=== PATIENT | female | born 1950 | race Two or more races ===

== ENCOUNTER 2020-10-13 21:29 | Emergency (ER) | payer BC, SELFPAY ==
--- NOTE | ~2020-10-13 | CT_ITS ---
EXAMINATION: CT HEAD WITHOUT CONTRAST CLINICAL INFORMATION: Dizziness COMPARISON: 12/09/2018 TECHNIQUE: Contiguous axial imaging was performed from the skull base to vertex without intravenous administration of contrast. This CT examination was performed using dose optimization techniques as appropriate, variously including the following: *Automated exposure control *Adjustment of mA and/or kV according to patient size (this includes techniques or standardized protocols for targeted exams where dose is matched to indication/reason for exam; i.e. extremities or head) *Use of iterative reconstruction technique DLP: 580 mGy-cm FINDINGS: There is no evidence of acute intracranial hemorrhage or territorial infarction. No abnormal mass effect or midline shift is seen. Diana to white matter differentiation is well preserved. No extra-axial fluid collections are identified. The ventricles are normal in size. There is no abnormal attenuation within the brain parenchyma. The osseous structures and soft tissues are normal. The mastoid air cells and visualized portions of the paranasal sinuses are well aerated. CT/CT head/brain wo con IMPRESSION: No acute intracranial pathology.
[2020-10-13 21:34] VITALS: BP 114/67; PULSE 89; RESP 16; TEMP 37.1; O2SAT 98; BMI 19.8
--- NOTE | 2020-10-13 21:54 | ECG_ITS ---
Test Reason : DIZZINESS Blood Pressure : / mmHG Vent. Rate : 088 BPM Atrial Rate : 088 BPM P-R Int : 142 ms QRS Dur : 070 ms QT Int : 380 ms P-R-T Axes : 077 059 066 degrees QTc Int : 459 ms Sinus rhythm with occasional Premature ventricular complexes Otherwise normal ECG When compared with ECG of 09-DEC-2018 18:41, Premature ventricular complexes are now Present Referred By: Angelina Aranda Electronically Signed By:GAURAV VELASCO MD
--- NOTE | 2020-10-13 21:56 | ED_ITS ---
HPI - Dizziness General Chief Complaint: Dizziness Stated Complaint: vertigo nausea Time Seen by Provider: 10/13/20 21:44 Source: patient Mode of arrival: EMS Limitations: no limitations History of Present Illness HPI Narrative: Patient comes emergency room complaining of vertigo. Patient has been previously diagnosed with vertigo. Approximately 3 hours ago, patient was reading, patient decided to lay down to rest, when she laid down she immediately started having severe dizziness, described as the room spinning around. Since then, the patient has had constant room spinning sensation. Patient took 1 tablet of meclizine prior to arrival but did not help. Patient vomited once, patient still feels nauseous. Patient denies chest pain or shortness of breath, no headache. Patient states that as long as she holds her head very still, she is only nauseous but no room spinning. However, if she moves her head slightly, she has severe vertigo Related Data Previous Rx's Medication Instructions Recorded levofloxacin 500 mg tablet 500 mg PO DAILY 7 Days #7 tab 02/19/20 meclizine 25 mg tablet 25 mg PO DAILY PRN #30 tab 03/08/20 cholecalciferol (vitamin D3) 50 50 mcg PO DAILY #90 cap 04/17/20 mcg (2,000 unit) capsule ropinirole 0.5 mg tablet 0.5 mg PO BEDTIME #90 tab 05/07/20 tiotropium bromide 18 mcg capsule 1 cap INHALATION DAILY 90 Days #90 08/19/20 with inhalation device inh simvastatin 10 mg tablet 10 mg PO DAILY #90 tab 10/06/20 citalopram 10 mg tablet 10 mg PO DAILY #90 tab 10/12/20 diazepam [Valium] 2 mg PO BID PRN #6 tab 10/14/20 meclizine 25 mg PO TID PRN #20 tab 10/14/20 Allergies Allergy/AdvReac Type Severity Reaction Status Date / Time aspirin [Aspirin] Allergy Unknown RASH Verified 03/04/20 09:25 diphenhydramine Allergy Unknown Unknown Verified 03/04/20 09:25 [From Benadryl] iron [Iron] Allergy Unknown VAGINAL Verified 03/04/20 09:25 INFECTION menthol [From Antihistamine] Allergy Unknown DIFF Unverified 12/10/19 15:47 BREATHING penicillin V Allergy Unknown hives Verified 03/04/20 09:25 Penicillins Allergy Unknown Hives Verified 03/04/20 09:25 Sulfa (Sulfonamide Allergy Unknown RASH Verified 03/04/20 09:25 Antibiotics) Review of Systems Review of Systems: Constitutional : No Weight loss, No Fever, No Chills, No Night Sweats, No Fatigue, No Malaise ENT/Mouth : No Hearing loss, No Ear Pain, No Nasal Congestion, No Sinus Pain, No Hoarseness, No sore throat, No Rhinorrhea, No Swallowing Difficulty Eyes: No Eye Pain, No Swelling, No Redness, No Foreign Body, No Discharge, No Vision Changes Cardiovascular : No Chest Pain, No SOB, No Dyspnea on Exertion, No Orthopnea, No Edema, No Palpitations Respiratory : No Cough, No Sputum, No Wheezing, No Smoke Exposure, No Dyspnea Gastrointestinal : Complaining of constant nausea, 1 episode of vomiting, No Diarrhea, No Constipation, No abdominal Pain, No Hematochezia, No Melena Genitourinary : no irregular bleeding, No Dysuria, No Urinary Frequency, No Hematuria, No Urinary Incontinence, No Urgency, No Flank Pain, No Urinary Flow Changes, No Hesitancy Musculoskeletal : No joint pain, No Myalgias, No Joint Swelling Skin : No Skin Lesions, No rash Neuro : No Weakness, No Numbness, No Paresthesias, No Loss of Consciousness, no headache, complaining of dizziness/room spinning sensation constantly Psych : No Anxiety/Panic, No Depression, No SI/HI/AH/VH, No Social Issues, Heme/Lymph: No Bruising, No Bleeding,No Lymphadenopathy Endocrine : No Polyuria, No Polydipsia, No Temperature Intolerance [facility] Past Medical History Medical History (Updated 10/14/20 @ 00:44 by Angelina Aranda MD) Vertigo Surgical History History of breast surgery Family History Family History (Updated 03/04/20 @ 09:26 by Mile Tay Clarke) Father Orebg-Xuojt-Nibhq syndrome Mother Hypertension Paternal Aunt Mvwfj-Byunr-Yfgvs syndrome Social History Social History Advance Directives: No Advance Directives Information Provided: Yes Physical Exam Vital Signs: Vital Signs: Last Vital Signs Temp 98.7 F 10/13/20 21:34 Pulse 86 10/13/20 22:28 Resp 16 10/13/20 22:28 BP 115/69 10/13/20 22:28 Pulse Ox 98 10/13/20 22:28 Body Mass Index 19.8 Appearance: Alert. Oriented X3. Looks uncomfortable Eyes: Pupils equal, round and reactive to light. No nystagmus ENT: Pharynx normal. Neck: Normal inspection. Neck supple. No lymph nodes noted. No crepitus CVS: Normal heart rate and rhythm. Pulses normal. Normal S1 and S2 Respiratory: No respiratory distress. Breath sounds normal. No Wheezing. No rales Abdomen: Soft and nontender. No rigidity. No distention. good BS x4 Skin: Skin warm and dry. Normal skin color. Normal skin turgor. Extremities: No lower extremity edema. No lower extremity edema. No Lacerations. No Rash Neuro: Oriented X 3. No motor deficit. No sensory deficit. Moving all extermities. No slurred speech. Cranial nerves 2-12 grossly intact. Vertigo worsen with head movement side to side MDM - Dizziness MDM Narrative Medical decision making narrative: I discussed labs and head CT with the patient, patient's white blood cell count is slightly elevated, no signs of infection. Patient was given 1 dose of meclizine and Valium, after the medication, patient is now asymptomatic, can move her head within normal limits, has been walking around the emergency room on going up to the bathroom by herself with no symptoms. Lab Data Result diagrams: 10/13/20 22:17 10/13/20 22:17 Labs: Lab Results 10/13/20 10/13/20 10/13/20 Range/Units 22:17 22:17 22:17 WBC 11.2 H (4.8-10.8) X10*3/uL RBC 4.27 (4.20-5.50) X10*6/uL Hgb 14.0 (12.0-16.0) g/dl Hct 42.5 (37-47) % MCV 99.5 H (80-98) fL MCH 32.8 (27.0-33.0) pg MCHC 32.9 (31.0-35.0) g/dl RDW 12.2 (11.0-16.0) % Plt Count 231 (160-400) X10*3/uL MPV 9.4 (9.4-12.3) fL Immature Gran % (Auto) 0.4 (0.0-0.4) % Neut % (Auto) 73.7 H (45-73) % Lymph % (Auto) 20.1 (20-40) % [place] % (Auto) 5.1 (2-11) % Eos % (Auto) 0.5 (0-4) % Baso % (Auto) 0.2 (0-2) % Lymph # (Auto) 2.2 (1.2-4.9) X10*3/uL [place] # (Auto) 0.6 (0.1-1.2) X10*3/uL Eos # (Auto) 0.1 (0.0-0.4) X10*3/uL Baso # (Auto) 0.0 (0.0-0.2) X10*3/uL Abs Immat Gran (auto) 0.04 H (0.00-0.03) X10*3/uL Absolute Neuts (auto) 8.2 (2.0-8.3) X10*3/uL Absolute Nucleated RBC 0.000 (0.0-0.012) X10*3/uL Nucleated RBC % (auto) 0.0 (0.0-0.2) /100WBC PT 11.2 (9.9-13.0) SEC INR 1.0 (0.9-1.1) Sodium 140 (135-145) mmol/L Potassium 4.2 (3.3-5.1) mmol/L Chloride 105 (96-108) mmol/L Carbon Dioxide 28 (22-29) mmol/L Anion Gap 11 L (12-20) BUN 14 (9-16) mg/dL Creatinine 0.72 (0.5-1.4) mg/dL Estim Creat Clear Calc 50.2 Estimated GFR > 60 Random Glucose 127 H (60-115) mg/dL Calcium 8.9 (8.4-10.2) mg/dL Total Bilirubin 0.2 (0.0-1.0) mg/dL Direct Bilirubin < 0.2 (0.0-0.5) mg/dL AST 31 (5-31) U/L ALT 18 (0-31) U/L Alkaline Phosphatase 100 (39-117) U/L Total Protein 6.5 (6.5-8.0) g/dL Albumin 4.2 (3.5-5.0) g/dL Urine Color Urine Appearance Urine pH (5.0-8.0) Ur Specific [place] (1.005-1.025) Urine Protein (NEG-TRACE) MG/DL Urine Glucose (UA) (NEG) MG/DL Urine Ketones (NEG) MG/DL Urine Blood (NEG) Urine Nitrite (NEG) Ur Leukocyte Esterase (NEG) Urine RBC (0) /HPF Urine WBC (0-4) /HPF Ur Squamous Epith Cells /LPF Urine Bacteria /LPF Urine Mucus /LPF 10/13/20 Range/Units 22:59 WBC (4.8-10.8) X10*3/uL RBC (4.20-5.50) X10*6/uL Hgb (12.0-16.0) g/dl Hct (37-47) % MCV (80-98) fL MCH (27.0-33.0) pg MCHC (31.0-35.0) g/dl RDW (11.0-16.0) % Plt Count (160-400) X10*3/uL MPV (9.4-12.3) fL Immature Gran % (Auto) (0.0-0.4) % Neut % (Auto) (45-73) % Lymph % (Auto) (20-40) % [place] % (Auto) (2-11) % Eos % (Auto) (0-4) % Baso % (Auto) (0-2) % Lymph # (Auto) (1.2-4.9) X10*3/uL [place] # (Auto) (0.1-1.2) X10*3/uL Eos # (Auto) (0.0-0.4) X10*3/uL Baso # (Auto) (0.0-0.2) X10*3/uL Abs Immat Gran (auto) (0.00-0.03) X10*3/uL Absolute Neuts (auto) (2.0-8.3) X10*3/uL Absolute Nucleated RBC (0.0-0.012) X10*3/uL Nucleated RBC % (auto) (0.0-0.2) /100WBC PT (9.9-13.0) SEC INR (0.9-1.1) Sodium (135-145) mmol/L Potassium (3.3-5.1) mmol/L Chloride (96-108) mmol/L Carbon Dioxide (22-29) mmol/L Anion Gap (12-20) BUN (9-16) mg/dL Creatinine (0.5-1.4) mg/dL Estim Creat Clear Calc Estimated GFR Random Glucose (60-115) mg/dL Calcium (8.4-10.2) mg/dL Total Bilirubin (0.0-1.0) mg/dL Direct Bilirubin (0.0-0.5) mg/dL AST (5-31) U/L ALT (0-31) U/L Alkaline Phosphatase (39-117) U/L Total Protein (6.5-8.0) g/dL Albumin (3.5-5.0) g/dL Urine Color YELLOW Urine Appearance CLEAR Urine pH 6.0 (5.0-8.0) Ur Specific [place] 1.025 (1.005-1.025) Urine Protein NEG (NEG-TRACE) MG/DL Urine Glucose (UA) NEG (NEG) MG/DL Urine Ketones NEG (NEG) MG/DL Urine Blood TRACE (NEG) Urine Nitrite NEG (NEG) Ur Leukocyte Esterase NEG (NEG) Urine RBC 5-9 H (0) /HPF Urine WBC 1-4 (0-4) /HPF Ur Squamous Epith Cells 1+ /LPF Urine Bacteria 1+ /LPF Urine Mucus 1+ /LPF Imaging Data CT scan - head: Radiologist's impression: There is no evidence of acute intracranial hemorrhage or territorial infarction. No abnormal mass effect or midline shift is seen. Diana to white matter differentiation is well preserved. No extra-axial fluid collections are identified. The ventricles are normal in size. There is no abnormal attenuation within the brain parenchyma. The osseous structures and soft tissues are normal. The mastoid air cells and visualized portions of the paranasal sinuses are well aerated. CT/CT head/brain wo con IMPRESSION: No acute intracranial pathology. ECG Data Attestation: I personally reviewed and interpreted this ECG as follows: (Center rhythm, heart rate 88, nonspecific ST changes, occasional PVCs, QTC 459) Discharge Plan Discharge Clinical Impression: Vertigo Patient Disposition: Home, Self-Care Instructions: Vertigo (ED) Additional Instructions: Please follow-up with your primary care physician tomorrow. If you have any worsening or new symptoms, please return to the emergency room or call 911 Prescriptions: New meclizine 25 mg tablet,chewable 25 mg PO TID PRN (Reason: dizziness) Qty: 20 RF: 0 diazepam [Valium] 2 mg tablet 2 mg PO BID PRN (Reason: vertigo) Qty: 6 RF: 0 No Action levofloxacin 500 mg tablet 500 mg PO DAILY 7 Days Qty: 7 RF: 0 meclizine 25 mg tablet 25 mg PO DAILY PRN (Reason: for dizziness) Qty: 30 RF: 1 cholecalciferol (vitamin D3) 50 mcg (2,000 unit) capsule 50 mcg PO DAILY Qty: 90 RF: 3 ropinirole 0.5 mg tablet 0.5 mg PO BEDTIME Qty: 90 RF: 1 tiotropium bromide [Spiriva with HandiHaler] 18 mcg capsule, w/inhalation device 1 cap inhalation DAILY 90 Days Qty: 90 RF: 3 simvastatin 10 mg tablet 10 mg PO DAILY Qty: 90 RF: 2 citalopram 10 mg tablet 10 mg PO DAILY Qty: 90 RF: 1
[2020-10-13 22:02] VITALS: BP 128/67; PULSE 92
[2020-10-13 22:03] VITALS: BP 118/64; PULSE 96
[2020-10-13 22:04] VITALS: BP 119/68; PULSE 98
[2020-10-13 22:24] LABS: MANUAL DIFF FLAG NO
[2020-10-13 22:25] LABS: Basophils Percent Auto 0.2 % (0-2); Eosinophils Absolute Auto 0.1 X10*3/uL (0.0-0.4); Eosinophils Percent Auto 0.5 % (0-4); Hematocrit 42.5 % (37-47); Imm Gran Abs Auto 0.04 X10*3/uL (0.00-0.03); Imm Gran Pct Auto 0.4 % (0.0-0.4); Lymphocytes Absolute Auto 2.2 X10*3/uL (1.2-4.9); Lymphocytes Percent Auto 20.1 % (20-40); Mean Corpuscular HGB Conc 32.9 g/dl (31.0-35.0); Mean Corpuscular Hemoglobin 32.8 pg (27.0-33.0); Mean Corpuscular Volume 99.5 fL (80-98); Mean Platelet Volume 9.4 fL (9.4-12.3); Monocytes Absolute Auto 0.6 X10*3/uL (0.1-1.2); Monocytes Percent Auto 5.1 % (2-11); Neutrophils Absolute Auto 8.2 X10*3/uL (2.0-8.3); Neutrophils Percent Auto 73.7 % (45-73); Platelet Count 231 X10*3/uL (160-400); Red Blood Count 4.27 X10*6/uL (4.20-5.50); Red Cell Distribution Width 12.2 % (11.0-16.0); White Blood Count 11.2 X10*3/uL (4.8-10.8)
[2020-10-13 22:28] VITALS: BP 115/69; PULSE 86; RESP 16; O2SAT 98
[2020-10-13 22:34] LABS: Prothrombin Time 11.2 SEC (9.9-13.0)
[2020-10-13 22:47] LABS: Alanine Aminotransferase 18 U/L (0-31); Albumin Level 4.2 g/dL (3.5-5.0); Alkaline Phosphatase 100 U/L (39-117); Anion Gap 11 (12-20); Aspartate Amino Transferase 31 U/L (5-31); Bilirubin Direct < 0.2 mg/dL (0.0-0.5); Bilirubin Total 0.2 mg/dL (0.0-1.0); Blood Urea Nitrogen 14 mg/dL (9-16); Calcium 8.9 mg/dL (8.4-10.2); Carbon Dioxide 28 mmol/L (22-29); Chloride 105 mmol/L (96-108); Creatinine Clr Calc Pharmacy 50.2; Estimated Glomerular Filt Rate > 60; Glucose Random 127 mg/dL (60-115); Potassium 4.2 mmol/L (3.3-5.1); Sodium 140 mmol/L (135-145); Total Protein 6.5 g/dL (6.5-8.0)
[2020-10-13] MEDS: Meclizine HCl 25 MG TABLET 50 MG PO (22:58)
[2020-10-13] MEDS: diazePAM 2 MG TABLET PO (23:10)
[2020-10-13 23:11] LABS: Glucose Urine UA NEG (NEG); Leukocyte Esterase Urine NEG (NEG); Nitrite Urine NEG (NEG); Specific Gravity - Urine 1.025 (1.005-1.025); Urine Blood TRACE (NEG); Urine Ketones NEG (NEG); Urine Protein NEG (NEG-TRACE)
[2020-10-13 23:13] LABS: Appearance Urine CLEAR; Color Urine YELLOW
[2020-10-13 23:17] LABS: Bacteria Urine 1+ /LPF; Mucus Urine 1+ /LPF; Squamous Epithelial Cell Urine 1+ /LPF
== END 2020-10-14 01:00 | disposition home or self-care (01) ==
PROVIDERS: Emergency Provider Emergency Medicine; PCP Internal Medicine
DX: R42 Dizziness and giddiness (principal)
CPT/HCPCS: 36415; 70450; 80048; 80076; 81001; 85025; 85610; 93005; 99284; 99285

== ENCOUNTER 2020-11-07 07:36 | Outpatient (REF) | payer BC, SELFPAY ==
[2020-11-07 09:03] LABS: MANUAL DIFF FLAG NO
[2020-11-07 09:11] LABS: Basophils Percent Auto 0.3 % (0-2); Eosinophils Absolute Auto 0.1 X10*3/uL (0.0-0.4); Eosinophils Percent Auto 1.9 % (0-4); Hematocrit 44.8 % (37-47); Hemoglobin 14.5 g/dl (12.0-16.0); Imm Gran Abs Auto 0.02 X10*3/uL (0.00-0.03); Imm Gran Pct Auto 0.3 % (0.0-0.4); Lymphocytes Absolute Auto 2.9 X10*3/uL (1.2-4.9); Lymphocytes Percent Auto 49.7 % (20-40); Mean Corpuscular HGB Conc 32.4 g/dl (31.0-35.0); Mean Corpuscular Hemoglobin 32.4 pg (27.0-33.0); Mean Platelet Volume 10.1 fL (9.4-12.3); Monocytes Absolute Auto 0.4 X10*3/uL (0.1-1.2); Monocytes Percent Auto 6.2 % (2-11); Neutrophils Absolute Auto 2.4 X10*3/uL (2.0-8.3); Neutrophils Percent Auto 41.6 % (45-73); Platelet Count 254 X10*3/uL (160-400); Red Blood Count 4.48 X10*6/uL (4.20-5.50); Red Cell Distribution Width 12.2 % (11.0-16.0); White Blood Count 5.8 X10*3/uL (4.8-10.8)
[2020-11-07 09:31] LABS: Alanine Aminotransferase 19 U/L (0-31); Albumin Level 4.3 g/dL (3.5-5.0); Alkaline Phosphatase 96 U/L (39-117); Anion Gap 13 (12-20); Aspartate Amino Transferase 31 U/L (5-31); Bilirubin Total 0.3 mg/dL (0.0-1.0); Blood Urea Nitrogen 11 mg/dL (9-16); Calcium 9.7 mg/dL (8.4-10.2); Carbon Dioxide 30 mmol/L (22-29); Chloride 107 mmol/L (96-108); Cholesterol 165 mg/dL; Estimated Glomerular Filt Rate > 60; Glucose Fasting 99 mg/dL (60-99); HDL Cholesterol 46 mg/dL; LDL Cholesterol Calculated 97 mg/dl; Sodium 145 mmol/L (135-145); Total Protein 6.8 g/dL (6.5-8.0); Triglycerides 112 mg/dL
[2020-11-07 09:52] LABS: Vitamin D 25-OH Total 85.6 ng/mL (>30)
== END 2020-11-07 07:37 | disposition home or self-care (01) ==
LOC: HO.LAB 07:36
PROVIDERS: PCP Internal Medicine; Visit Provider Internal Medicine
DX: E78.2 Mixed hyperlipidemia (principal); G25.81 Restless legs syndrome; F17.200 Nicotine dependence, unspecified, uncomplicated; E55.9 Vitamin D deficiency, unspecified
CPT/HCPCS: 36415; 80053; 80061; 82306; 82550; 85025

== ENCOUNTER 2021-03-09 07:33 | Outpatient (REF) | payer BC, SELFPAY ==
[2021-03-09 07:44] LABS: MANUAL DIFF FLAG NO
[2021-03-09 07:57] LABS: Basophils Percent Auto 0.4 % (0-2); Eosinophils Absolute Auto 0.1 X10*3/uL (0.0-0.4); Eosinophils Percent Auto 1.5 % (0-4); Hematocrit 43.7 % (37.0-47.0); Imm Gran Abs Auto 0.02 X10*3/uL (0.00-0.03); Imm Gran Pct Auto 0.3 % (0.0-0.4); Lymphocytes Absolute Auto 3.5 X10*3/uL (1.2-4.9); Lymphocytes Percent Auto 51.5 % (20-40); Mean Corpuscular Hemoglobin 32.6 pg (27.0-33.0); Mean Corpuscular Volume 101.9 fL (80.0-98.0); Mean Platelet Volume 9.4 fL (9.4-12.3); Monocytes Absolute Auto 0.5 X10*3/uL (0.1-1.2); Monocytes Percent Auto 6.6 % (2-11); Neutrophils Absolute Auto 2.7 x10*3/uL (2.0-8.3); Neutrophils Percent Auto 39.7 % (45-73); Platelet Count 270 X10*3/uL (160-400); Red Blood Count 4.29 X10*6/uL (4.20-5.50); Red Cell Distribution Width 12.6 % (11.0-16.0); White Blood Count 6.8 X10*3/uL (4.8-10.8)
[2021-03-09 08:16] LABS: Alanine Aminotransferase 19 U/L (0-31); Albumin Level 4.2 g/dL (3.5-5.0); Alkaline Phosphatase 91 U/L (39-117); Anion Gap 10 (12-20); Aspartate Amino Transferase 28 U/L (5-31); Bilirubin Total 0.4 mg/dL (0.0-1.0); Blood Urea Nitrogen 14 mg/dL (9-16); Calcium 9.4 mg/dL (8.4-10.2); Carbon Dioxide 31 mmol/L (22-29); Chloride 106 mmol/L (96-108); Cholesterol 177 mg/dL; Estimated Glomerular Filt Rate > 60; Glucose Fasting 105 mg/dL (60-99); HDL Cholesterol 44 mg/dL; LDL Cholesterol Calculated 108 mg/dl; Potassium 4.1 mmol/L (3.3-5.1); Sodium 143 mmol/L (135-145); Total Protein 6.5 g/dL (6.5-8.0); Triglycerides 127 mg/dL
[2021-03-09 08:39] LABS: Vitamin D 25-OH Total 77.9 ng/mL (>30)
== END 2021-03-09 07:34 | disposition home or self-care (01) ==
LOC: HO.LAB 07:33
PROVIDERS: PCP Internal Medicine; Visit Provider Internal Medicine
DX: I10 Essential (primary) hypertension (principal); E55.9 Vitamin D deficiency, unspecified; E78.00 Pure hypercholesterolemia, unspecified
CPT/HCPCS: 36415; 80053; 80061; 82306; 84443; 85025

== ENCOUNTER 2021-04-28 14:30 | Outpatient (REF) | payer BC, SELFPAY ==
[2021-04-28 15:15] LABS: Appearance Urine CLEAR; Color Urine YELLOW; Glucose Urine UA NEG (NEG); Leukocyte Esterase Urine NEG (NEG); Nitrite Urine NEG (NEG); Urine Blood NEG (NEG); Urine Ketones NEG (NEG); Urine Protein NEG (NEG-TRACE)
== END 2021-04-28 14:31 | disposition home or self-care (01) ==
LOC: HO.LAB 14:30
PROVIDERS: PCP Internal Medicine; Visit Provider Internal Medicine
DX: I10 Essential (primary) hypertension (principal)
CPT/HCPCS: 81003

== ENCOUNTER 2021-06-05 08:29 | Outpatient (REF) | payer BC, SELFPAY ==
--- NOTE | ~2021-06-05 | XR_ITS ---
EXAMINATION: XR SHOULDER, RIGHT CLINICAL INFORMATION: Pain COMPARISON: Right humerus x-ray March 2014 TECHNIQUE: AP external rotation, Grashey, scapular Y, and axillary views of the right shoulder. FINDINGS: Bone alignment is normal. No acute fracture or dislocation is seen. There is an old right ninth rib fracture. The bones appear osteopenic. The glenohumeral joint is normal. There is arthritis at the acromioclavicular joint. Soft tissues are unremarkable. XR/XR shoulder RT min 2V IMPRESSION: Osteopenia and arthritis at the acromioclavicular joint.
== END 2021-06-05 08:30 | disposition home or self-care (01) ==
LOC: HO.XRAY 08:29
PROVIDERS: PCP Internal Medicine; Visit Provider Internal Medicine
DX: M25.511 Pain in right shoulder (principal)
CPT/HCPCS: 73030

== ENCOUNTER 2021-06-08 14:13 | Outpatient (REF) | payer BC, SELFPAY ==
--- NOTE | ~2021-06-08 | MM_ITS ---
EXAMINATION: MM DIAGNOSTIC DIGITAL BREAST TOMOSYNTHESIS, BILATERAL US DIAGNOSTIC ULTRASOUND BREAST, BILATERAL CLINICAL INFORMATION: 70-year-old with on and off pain approximately 1 week bilateral axilla, right 3:00 through 9:00, left 8:00 through 10:00. Clinical exam notes palpable area right 2:00 4 cm from nipple and left 10:00 4 cm from nipple. Due for yearly. Prior mammography 2009 purged. The lifetime risk of breast cancer based on the Tyrer-Cuzick Model is 3%. COMPARISON: None (current study represents new baseline exam). TECHNIQUE: Digital breast tomosynthesis is performed in both the craniocaudal and mediolateral oblique views along with computer-aided detection (CAD). Synthesized 2D images are generated from the tomosynthesis. Ultrasound bilateral breasts is performed using grayscale imaging and color Doppler without and with harmonics. Left breast is imaged 8:00 through 10:00 and axilla. Right breast is imaged 2:00 through 9:00 and axilla. FINDINGS: The breasts are heterogeneously dense, which may obscure small masses (ACR BI-RADS breast composition Category c). There is no mass or architectural abnormality. No abnormal calcifications. The axilla and skin contours are unremarkable. No lymphadenopathy, skin thickening, or coarsening of the Benton's ligaments. Bilateral ultrasound demonstrates no axillary adenopathy. There is no cystic or solid mass or architectural abnormality or focal duct ectasia. No skin thickening or edema tracking in the soft tissue planes. Results are discussed with the patient at time of visit. MM/MM tomosynthesis diagnostic BI IMPRESSION: No mammographic evidence of malignancy or inflammatory changes. Bilateral ultrasound normal. ASSESSMENT: BI-RADS 1: Negative RECOMMENDATION: 1. Patient's pain should be managed based on the clinical impression. If there is still clinically palpable concern, further evaluation may be considered with surgical consult. Decision to proceed with biopsy should be based on clinical grounds and degree of clinical concern. 2. Otherwise, routine annual screening mammography. This patient's information was entered into a reminder system with a target due date for their next mammogram.
== END 2021-06-08 14:14 | disposition home or self-care (01) ==
LOC: HO.MAMMO 14:13
PROVIDERS: PCP Internal Medicine; Visit Provider Nurse Practitioner Family
DX: M79.622 Pain in left upper arm (principal); M79.621 Pain in right upper arm
CPT/HCPCS: 76642; 77062; 77066

== ENCOUNTER 2021-07-04 08:04 | Outpatient (REF) | payer BC, SELFPAY ==
[2021-07-04 08:24] LABS: MANUAL DIFF FLAG NO
[2021-07-04 08:30] LABS: Basophils Percent Auto 0.3 % (0-2); Eosinophils Absolute Auto 0.1 X10*3/uL (0.0-0.4); Eosinophils Percent Auto 0.8 % (0-4); Hematocrit 43.3 % (37.0-47.0); Hemoglobin 14.1 g/dl (12.0-16.0); Imm Gran Abs Auto 0.02 X10*3/uL (0.00-0.03); Imm Gran Pct Auto 0.3 % (0.0-0.4); Lymphocytes Absolute Auto 2.4 X10*3/uL (1.2-4.9); Lymphocytes Percent Auto 39.3 % (20-40); Mean Corpuscular HGB Conc 32.6 g/dl (31.0-35.0); Mean Corpuscular Hemoglobin 32.9 pg (27.0-33.0); Mean Corpuscular Volume 100.9 fL (80.0-98.0); Mean Platelet Volume 9.3 fL (9.4-12.3); Monocytes Absolute Auto 0.3 X10*3/uL (0.1-1.2); Monocytes Percent Auto 5.5 % (2-11); Neutrophils Absolute Auto 3.2 x10*3/uL (2.0-8.3); Neutrophils Percent Auto 53.8 % (45-73); Platelet Count 260 X10*3/uL (160-400); Red Blood Count 4.29 X10*6/uL (4.20-5.50); Red Cell Distribution Width 12.6 % (11.0-16.0)
[2021-07-04 08:56] LABS: Alanine Aminotransferase 25 U/L (0-31); Albumin Level 4.3 g/dL (3.5-5.0); Alkaline Phosphatase 94 U/L (39-117); Anion Gap 12 (12-20); Aspartate Amino Transferase 34 U/L (5-31); Bilirubin Total 0.4 mg/dL (0.0-1.0); Blood Urea Nitrogen 10 mg/dL (9-16); Calcium 9.5 mg/dL (8.4-10.2); Carbon Dioxide 29 mmol/L (22-29); Chloride 105 mmol/L (96-108); Cholesterol 168 mg/dL; Estimated Glomerular Filt Rate > 60; Glucose Fasting 110 mg/dL (60-99); HDL Cholesterol 46 mg/dL; LDL Cholesterol Calculated 105 mg/dl; Potassium 4.4 mmol/L (3.3-5.1); Sodium 142 mmol/L (135-145); Total Protein 6.6 g/dL (6.5-8.0); Triglycerides 88 mg/dL
[2021-07-04 09:18] LABS: TSH reflex Free T4 2.05 uIU/mL (0.32-4.0); Vitamin D 25-OH Total 78.2 ng/mL (>30)
[2021-07-04 09:41] LABS: Appearance Urine CLEAR; Color Urine YELLOW; Glucose Urine UA NEG (NEG); Leukocyte Esterase Urine NEG (NEG); Nitrite Urine NEG (NEG); UACC Culture Trigger NO; Urine Blood 1+ (NEG); Urine Ketones NEG (NEG); Urine Protein NEG (NEG-TRACE)
[2021-07-04 09:53] LABS: RBC Urine 0-2 /HPF (0); Squamous Epithelial Cell Urine TRACE /LPF; WBC Urine 0-2 /HPF (0-4)
[2021-07-04 09:54] LABS: Calcium Oxalate Crystals Urine TRACE /LPF
== END 2021-07-04 08:05 | disposition home or self-care (01) ==
LOC: HO.LAB 08:04
PROVIDERS: PCP Internal Medicine; Visit Provider Internal Medicine
DX: E78.00 Pure hypercholesterolemia, unspecified (principal); E55.9 Vitamin D deficiency, unspecified; J44.9 Chronic obstructive pulmonary disease, unspecified; F17.200 Nicotine dependence, unspecified, uncomplicated
CPT/HCPCS: 36415; 80053; 80061; 81001; 82306; 84443; 85025

== ENCOUNTER 2021-08-11 14:06 | Outpatient (REF) | payer BC, SELFPAY ==
--- NOTE | ~2021-08-11 | MM_ITS ---
EXAMINATION: BONE DENSITOMETRY CLINICAL INDICATION: Menopause. COMPARISON: Previous BD dated 06/27/2017 and baseline BD dated 03/30/2009. TECHNIQUE: Using a [employer] DXA System (software version: 13.1) manufactured by [employer], dual-energy x-ray absorptiometry was performed of the lumbar spine and left hip. The images are of good technical quality. Summary results are attached. FINDINGS: AP SPINE L1-L4: Current: BMD 0.650 g/cm2, Z-score -2.1, T-score -4.4, osteoporosis, 11.1% decrease from previous, 10.7% decrease from baseline (<5% change is not significant). Prior: BMD 0.731 g/cm2. Baseline: BMD 0.728 g/cm2. LEFT FEMUR, NECK: Current: BMD 0.639 g/cm2, Z-score -0.8, T-score -2.9, osteoporosis. Prior: BMD 0.613 g/cm2. Baseline: BMD 0.703 g/cm2. LEFT FEMUR, TOTAL: Current: BMD 0.661 g/cm2, Z-score -0.8, T-score -2.8, osteoporosis, 0.9% decrease from previous, 17.1% decrease from baseline (<5% change is not significant). Prior: BMD 0.667 g/cm2. Baseline: BMD 0.797 g/cm2. IDENTIFIED RISK FACTORS: Menopause, osteoporosis, low calcium intake, tobacco use (current smoker). HISTORY OF FRACTURE: None listed. MEDICATIONS: Vitamin D. MM/XR DEXA axial skeleton IMPRESSION: 1. DIAGNOSIS: Osteoporosis based on the lowest T-score value of -4.4 in the lumbar spine applying World Health Organization criteria. 2. 10-YEAR FRACTURE RISK PREDICTION, FRAX: According to the guidelines, FRAX calculation should only be performed on patients in the osteopenia bone density category. Therefore, FRAX was not performed on this patient. 3. Treatment Recommendations: NOF guidelines recommend consideration for treatment in postmenopausal women and men age 50 and older presenting with the following: -A hip or vertebral (clinical or morphometric) fracture. -T-score less than or equal to -2.5 at the femoral neck or spine after appropriate evaluation to exclude secondary causes. -Low bone mass at the hip or spine and a 10-year fracture probability by FRAX of greater than or equal to 3% for hip fracture or greater than or equal to 20% for major osteoporotic fracture based on the [place] adapted WHO algorithm. 4. Other Recommendations: All treatment decisions require clinical judgment and consideration of individual patient factors, including patient preferences, comorbidities, previous drug use, risk factors not captured in the FRAX model (e.g. frailty, falls, vitamin D deficiency, increased bone turnover, interval significant decline in bone density) and possible under or overestimation of fracture risk by FRAX. Additional medical evaluation for secondary cause of low bone mineral density may be appropriate. FUTURE SCAN RECOMMENDATION: People with diagnosed cases of osteoporosis or at high risk for fracture should have regular bone mineral density tests. For patients eligible for Medicare, routine testing is allowed once every 2 years. The testing frequency can be increased to one year for patients who have rapidly progressing disease, those who are receiving or discontinuing medical therapy to restore bone mass, or have additional risk factors.
== END 2021-08-11 14:07 | disposition home or self-care (01) ==
LOC: HO.MAMMO 14:06
PROVIDERS: PCP Internal Medicine; Visit Provider Internal Medicine
DX: Z13.820 Encounter for screening for osteoporosis (principal); Z78.0 Asymptomatic menopausal state; M81.0 Age-related osteoporosis without current pathological fracture
CPT/HCPCS: 77080

== ENCOUNTER 2021-11-20 07:37 | Outpatient (REF) | payer BC, SELFPAY ==
[2021-11-20 07:49] LABS: MANUAL DIFF FLAG NO
[2021-11-20 08:10] LABS: Basophils Percent Auto 0.4 % (0-2); Eosinophils Absolute Auto 0.1 X10*3/uL (0.0-0.4); Eosinophils Percent Auto 1.8 % (0-4); Hematocrit 44.8 % (37.0-47.0); Hemoglobin 14.7 g/dl (12.0-16.0); Imm Gran Abs Auto 0.01 X10*3/uL (0.00-0.03); Imm Gran Pct Auto 0.1 % (0.0-0.4); Lymphocytes Percent Auto 43.8 % (20-40); Mean Corpuscular HGB Conc 32.8 g/dl (31.0-35.0); Mean Corpuscular Hemoglobin 32.3 pg (27.0-33.0); Mean Corpuscular Volume 98.5 fL (80.0-98.0); Mean Platelet Volume 9.7 fL (9.4-12.3); Monocytes Absolute Auto 0.4 X10*3/uL (0.1-1.2); Monocytes Percent Auto 6.2 % (2-11); Neutrophils Absolute Auto 3.2 x10*3/uL (2.0-8.3); Neutrophils Percent Auto 47.7 % (45-73); Platelet Count 233 X10*3/uL (160-400); Red Blood Count 4.55 X10*6/uL (4.20-5.50); Red Cell Distribution Width 12.6 % (11.0-16.0); White Blood Count 6.8 X10*3/uL (4.8-10.8)
[2021-11-20 08:48] LABS: Appearance Urine Clear; Color Urine Yellow; Glucose Urine UA Negative (Negative); Leukocyte Esterase Urine Trace (Negative); Nitrite Urine Negative (Negative); PH 5.5 (5.0-8.0); Specific Gravity - Urine 1.025 (1.005-1.025); Urine Blood Trace (Negative); Urine Ketones Negative (Negative); Urine Protein Negative (Neg-Trace)
[2021-11-20 08:51] LABS: Bacteria Urine None Seen (None Seen); Hyaline Casts Urine 0-2 /LPF (0-2); Squamous Epithelial Cell Urine 0-2 /HPF (0-2); WBC Urine 0-5 /HPF (0-5)
[2021-11-20 08:52] LABS: Alanine Aminotransferase 20 U/L (0-31); Albumin Level 4.2 g/dL (3.5-5.0); Alkaline Phosphatase 90 U/L (39-117); Anion Gap 13 (12-20); Aspartate Amino Transferase 30 U/L (5-31); Bilirubin Total 0.5 mg/dL (0.0-1.0); Blood Urea Nitrogen 13 mg/dL (9-16); Calcium 9.6 mg/dL (8.4-10.2); Carbon Dioxide 29 mmol/L (22-29); Chloride 106 mmol/L (96-108); Cholesterol 157 mg/dL; Estimated Glomerular Filt Rate > 60; Glucose Fasting 97 mg/dL (60-99); HDL Cholesterol 44 mg/dL; LDL Cholesterol Calculated 93 mg/dl; Potassium 4.3 mmol/L (3.3-5.1); Sodium 144 mmol/L (135-145); Total Protein 6.7 g/dL (6.5-8.0); Triglycerides 101 mg/dL
[2021-11-20 09:01] LABS: TSH reflex Free T4 1.52 uIU/mL (0.32-4.0); Vitamin D 25-OH Total 73.9 ng/mL (>30)
== END 2021-11-20 07:38 | disposition home or self-care (01) ==
LOC: HO.LAB 07:37
PROVIDERS: PCP Internal Medicine; Visit Provider Internal Medicine
DX: I10 Essential (primary) hypertension (principal); E55.9 Vitamin D deficiency, unspecified; E78.00 Pure hypercholesterolemia, unspecified
CPT/HCPCS: 36415; 80053; 80061; 81001; 82306; 84443; 85025

== ENCOUNTER 2021-12-01 08:15 | Outpatient (REF) | payer BC, SELFPAY ==
--- NOTE | ~2021-12-01 | XR_ITS ---
EXAMINATION: XR CHEST 2 VIEWS CLINICAL INFORMATION: COPD. COMPARISON: Chest radiograph dated 12/09/2018; CT chest dated 07/31/2017. TECHNIQUE: Frontal and lateral views of the chest were obtained. FINDINGS: The heart, great vessels, pulmonary vasculature and mediastinum are normal. The lungs show no focal infiltrate, effusion or pneumothorax. Small benign, calcified left upper and lower lobe granulomas are redemonstrated. There is no acute osseous abnormality. XR/XR chest 2V IMPRESSION: No active cardiopulmonary disease.
== END 2021-12-01 08:16 | disposition home or self-care (01) ==
LOC: HO.XRAY 08:15
PROVIDERS: PCP Internal Medicine; Visit Provider Internal Medicine
DX: J44.1 Chronic obstructive pulmonary disease with (acute) exacerbation (principal)
CPT/HCPCS: 71046

== ENCOUNTER 2021-12-28 08:38 | Outpatient (REF) | payer BC, SELFPAY ==
--- NOTE | ~2021-12-28 | CT_ITS ---
EXAMINATION: CT CHEST WITHOUT CONTRAST CLINICAL INFORMATION: Nonspecific abnormal finding. COMPARISON: None TECHNIQUE: Multidetector volumetric CT imaging of the chest was done. Axial MIP volume rendering provided. Sagittal and coronal reformatted images were obtained. This CT examination was performed using dose optimization techniques as appropriate, variously including the following: *Automated exposure control *Adjustment of mA and/or kV according to patient size (this includes techniques or standardized protocols for targeted exams where dose is matched to indication/reason for exam; i.e. extremities or head) *Use of iterative reconstruction technique DLP: 76 mGy-cm FINDINGS: ARMAMENT MECHANIC: Lungs are well-expanded and clear. LUNGS: There is centrilobular emphysematous lungs. No acute pneumonic consolidation seen. There is mild bronchial wall thickening involving both lower lobes. There is mild interstitial thickening involving both lower lobes, right lower lobe. There are calcified granulomas, right upper lobe, left upper and left lower lobes. There are noncalcified peripheral-based small nodules measuring less than 3 mm, stable. No new nodules are seen. MEDIASTINUM: The thyroid lobes are symmetric and normal. The central trachea and bronchi are widely patent. Heart size is normal. There is atherosclerotic calcification of thoracic arch. No abnormal size mediastinal or hilar lymph nodes seen. No pericardial effusion seen. CORONARY ARTERY CALCIFICATION: Moderate coronary artery calcifications are noted. PLEURA: There is no pleural effusion. No pleural mass or thickening. AXILLA: There are small shotty lymph nodes seen in bilateral axilla. The chest wall is unremarkable. UPPER ABDOMEN: Visualized liver, spleen, pancreas and bilateral adrenal glands are unremarkable. OSSEOUS STRUCTURES: No lytic or sclerotic process seen. There is superior endplate deformity T12 vertebra. CT/CT chest wo IV con IMPRESSION: 1. Diffuse centrilobular emphysema. Small calcified granulomas and noncalcified nodules, less than 3 mm, stable. 2. Mild interstitial thickening in both lower lobes with bronchial wall thickening but no bronchiectasis. No debris seen within the bronchi at this time. Minimal atelectatic changes. Fleischner guidelines were followed.
== END 2021-12-28 08:39 | disposition home or self-care (01) ==
LOC: HO.CT 08:38
PROVIDERS: Visit Provider Internal Medicine Pulmonary Disease
DX: R91.8 Other nonspecific abnormal finding of lung field (principal)
CPT/HCPCS: 71250

== ENCOUNTER 2022-01-05 08:19 | Outpatient (REF) | payer BC, SELFPAY | END 2022-01-05 08:20 | disposition home or self-care (01) | LOC: HO.RESP 08:19 | PROVIDERS: PCP Internal Medicine; Visit Provider Internal Medicine Pulmonary Disease | DX: Z13.89 Encounter for screening for other disorder (principal) ==

== ENCOUNTER 2022-01-10 13:29 | Outpatient (REF) | payer BC, SELFPAY ==
--- NOTE | 2022-01-10 09:58 | PFT_ITS ---
FLOWS: FEV1 52% of predicted at 0.93 L. FVC 82% of predicted at 1.95 L. FEV1 to FVC ratio of 0.48. No bronchodilator response. LUNG VOLUMES: Total lung capacity 108% of predicted at 4.67 L. Residual volume 131% of predicted at 2.57 L. Slow vital capacity 89% of predicted at 2.10 L. Expiratory reserve volume 110% of predicted at 0.53 L. Diffusion capacity is moderately decreased. IMPRESSION: Moderate obstructive ventilatory defect with no bronchodilator response. Increased residual volume suggests air trapping. Decreased diffusion capacity suggests emphysema. Ike Thomas MD AP/MODL / [id number]
== END 2022-01-10 13:30 | disposition home or self-care (01) ==
LOC: HO.RESP 13:29
PROVIDERS: PCP Internal Medicine; Visit Provider Internal Medicine Pulmonary Disease
DX: R06.00 Dyspnea, unspecified (principal); J44.1 Chronic obstructive pulmonary disease with (acute) exacerbation
CPT/HCPCS: 94060; 94727; 94729

== ENCOUNTER 2022-01-17 15:44 | Emergency (ER) | payer BC, SELFPAY | END 2022-01-17 18:39 | disposition left against medical advice (07) | PROVIDERS: Emergency Provider Emergency Medicine; PCP Internal Medicine | DX: R04.2 Hemoptysis (principal) ==

== ENCOUNTER 2022-02-05 08:07 | Outpatient (REF) | payer BC, SELFPAY ==
[2022-02-05 09:17] LABS: Blood Urea Nitrogen 11 mg/dL (9-16); Estimated Glomerular Filt Rate > 60
== END 2022-02-05 08:08 | disposition home or self-care (01) ==
LOC: HO.LAB 08:07
PROVIDERS: PCP Internal Medicine; Visit Provider Internal Medicine Pulmonary Disease
DX: R04.2 Hemoptysis (principal)
CPT/HCPCS: 36415; 82565; 84520

== ENCOUNTER 2022-02-09 08:32 | Outpatient (REF) | payer BC, SELFPAY ==
--- NOTE | ~2022-02-09 | CT_ITS ---
EXAMINATION: CT CHEST WITH CONTRAST CLINICAL INFORMATION: Hemoptysis COMPARISON: Chest x-ray 12/01/[address] chest 12/28/2021 TECHNIQUE: Multidetector volumetric CT imaging of the chest was obtained after the administration of 65 mL of Omnipaque 350 intravenous contrast without immediate adverse reactions. Axial MIP volume rendering provided. Sagittal and coronal reformatted images were obtained. This CT examination was performed using dose optimization techniques as appropriate, variously including the following: *Automated exposure control *Adjustment of mA and/or kV according to patient size (this includes techniques or standardized protocols for targeted exams where dose is matched to indication/reason for exam; i.e. extremities or head) *Use of iterative reconstruction technique DLP: 60 mGy-cm FINDINGS: BRICKLAYER APPRENTICE: Unremarkable. LUNGS: There is centrilobular emphysema with 5-6 mm calcified nodules in both upper lobes and left lower lobe. There are noncalcified micronodules. They are stable. There is mild bronchial wall thickening in both lower lobes with minimal bronchiectasis. No debris visualized. There is no consolidation. MEDIASTINUM: Central trachea is slightly dilated. However, the trachea and the bronchi are clear. Thyroid lobes are symmetric and normal. Heart size and the great vessels are normal caliber. There is moderate coronary artery calcifications present. No pericardial effusion seen. No abnormal size mediastinal or hilar lymph nodes seen. PLEURA: There is no pleural effusion. No pleural mass or thickening. AXILLA: No lymphadenopathy. UPPER ABDOMEN: Visualized liver, spleen, pancreas and bilateral adrenal glands unremarkable. OSSEOUS STRUCTURES: No aggressive lytic or sclerotic process seen. There is a superior endplate deformity T12 vertebra. CT/CT chest w IV con IMPRESSION: 1. Diffuse emphysema with calcified granulomas are stable. Noncalcified small nodules are stable. 2. There is minimal interstitial thickening and bilateral lower lobe mild bronchiectasis with bronchial wall thickening but no debris. No consolidation seen. 3. Overall the findings are stable to previous exam on 12/28/2021. Fleischner guidelines were followed.
[2022-02-09] MEDS: iohexoL 350 MG/ML 100 ML INFUS..BTL 65 ML IV (09:07)
== END 2022-02-09 08:33 | disposition home or self-care (01) ==
LOC: HO.CT 08:32
PROVIDERS: PCP Internal Medicine; Visit Provider Internal Medicine Pulmonary Disease
DX: R04.2 Hemoptysis (principal)
CPT/HCPCS: 71260; Q9967

== ENCOUNTER 2022-04-03 07:42 | Outpatient (REF) | payer BC, SELFPAY ==
[2022-04-03 07:53] LABS: MANUAL DIFF FLAG NO
[2022-04-03 08:27] LABS: Basophils Percent Auto 0.4 % (0-2); Eosinophils Absolute Auto 0.1 X10*3/uL (0.0-0.4); Eosinophils Percent Auto 0.9 % (0-4); Hemoglobin 14.8 g/dl (12.0-16.0); Imm Gran Abs Auto 0.03 X10*3/uL (0.00-0.03); Imm Gran Pct Auto 0.4 % (0.0-0.4); Lymphocytes Absolute Auto 2.9 X10*3/uL (1.2-4.9); Lymphocytes Percent Auto 42.4 % (20-40); Mean Corpuscular HGB Conc 32.2 g/dl (31.0-35.0); Mean Corpuscular Hemoglobin 33.4 pg (27.0-33.0); Mean Corpuscular Volume 103.8 fL (80.0-98.0); Mean Platelet Volume 9.6 fL (9.4-12.3); Monocytes Absolute Auto 0.4 X10*3/uL (0.1-1.2); Monocytes Percent Auto 5.5 % (2-11); Neutrophils Absolute Auto 3.4 x10*3/uL (2.0-8.3); Neutrophils Percent Auto 50.4 % (45-73); Platelet Count 272 X10*3/uL (160-400); Red Blood Count 4.43 X10*6/uL (4.20-5.50); Red Cell Distribution Width 12.5 % (11.0-16.0); White Blood Count 6.8 X10*3/uL (4.8-10.8)
[2022-04-03 08:48] LABS: Alanine Aminotransferase 16 U/L (0-31); Albumin Level 4.1 g/dL (3.5-5.0); Alkaline Phosphatase 109 U/L (39-117); Anion Gap 14 (12-20); Aspartate Amino Transferase 26 U/L (5-31); Bilirubin Total 0.4 mg/dL (0.0-1.0); Blood Urea Nitrogen 14 mg/dL (9-16); Calcium 9.5 mg/dL (8.4-10.2); Carbon Dioxide 27 mmol/L (22-29); Chloride 106 mmol/L (96-108); Cholesterol 156 mg/dL; Estimated Glomerular Filt Rate > 60; Glucose Fasting 94 mg/dL (60-99); HDL Cholesterol 44 mg/dL; LDL Cholesterol Calculated 87 mg/dl; Potassium 4.5 mmol/L (3.3-5.1); Sodium 142 mmol/L (135-145); Total Protein 6.5 g/dL (6.5-8.0); Triglycerides 126 mg/dL
[2022-04-03 09:08] LABS: TSH reflex Free T4 1.01 uIU/mL (0.32-4.0); Vitamin D 25-OH Total 70.5 ng/mL (>30)
[2022-04-03 09:33] LABS: Appearance Urine Clear; Color Urine Yellow; Glucose Urine UA Negative (Negative); Leukocyte Esterase Urine Negative (Negative); Nitrite Urine Negative (Negative); PH 5.5 (5.0-9.0); Specific Gravity - Urine >= 1.030 (1.005-1.025); UMIC TRIGGER UACC YES; Urine Blood Trace (Negative); Urine Ketones Negative (Negative); Urine Protein Negative (Neg-Trace)
[2022-04-03 09:54] LABS: WBC Urine 0-5 /HPF (0-5)
[2022-04-03 09:55] LABS: Bacteria Urine None Seen (None Seen); Hyaline Casts Urine 0-2 /LPF (0-2); Squamous Epithelial Cell Urine 0-2 /HPF (0-2)
== END 2022-04-03 07:43 | disposition home or self-care (01) ==
LOC: HO.LAB 07:42
PROVIDERS: PCP Internal Medicine; Visit Provider Internal Medicine
DX: E78.00 Pure hypercholesterolemia, unspecified (principal); E55.9 Vitamin D deficiency, unspecified; I10 Essential (primary) hypertension
CPT/HCPCS: 36415; 80053; 80061; 81001; 82306; 84443; 85025

== ENCOUNTER 2022-04-04 09:16 | Outpatient (REF) | payer BC, SELFPAY ==
--- NOTE | ~2022-04-04 | CT_ITS ---
EXAMINATION: CT SINUS WITHOUT CONTRAST CLINICAL INFORMATION: Nasal polyp COMPARISON: None TECHNIQUE: Multidetector helical imaging was performed in the axial plane using landmarks protocol with generation of coronal and sagittal reformatted images. This CT examination was performed using dose optimization techniques as appropriate, variously including the following: *Automated exposure control *Adjustment of mA and/or kV according to patient size (this includes techniques or standardized protocols for targeted exams where dose is matched to indication/reason for exam; i.e. extremities or head) *Use of iterative reconstruction technique DLP: 81 mGy-cm FINDINGS: FRONTAL SINUSES AND DRAINAGE PATHWAYS: The frontal sinuses are clear. The frontal recesses are patent. MAXILLARY SINUSES AND DRAINAGE PATHWAYS: The maxillary sinuses are clear. The maxillary ostia and infundibula are patent. ETHMOID SINUSES: The ethmoid air cells are clear. The ethmoid roofs appear intact and are symmetric. SPHENOID SINUS AND DRAINAGE PATHWAYS: The sphenoid sinus is clear.. The sphenoid ostia and sphenoethmoidal recesses are patent. NASAL PASSAGE: The nasal passages are clear. The osseous nasal septum demonstrates rightward deviation and mild rightward osseous spurring ADDITIONAL RELEVANT FINDINGS: The lamina papyracea are intact. No demonstrated abnormalities of the orbits. The carotid canals are normally covered by bone. Maxilla is edentulous. The temporomandibular joints are normal. The mastoid air cells and middle ear cavities are well aerated. Limited evaluation of the intracranial structures without significant abnormalities. CT/CT sinus wo IV con IMPRESSION: No active sinus disease. Rightward deviation and osseous spurring of the nasal septum.
== END 2022-04-04 09:17 | disposition home or self-care (01) ==
LOC: HO.CT 09:16
PROVIDERS: PCP Internal Medicine; Visit Provider Otolaryngology
DX: J33.9 Nasal polyp, unspecified (principal); J34.2 Deviated nasal septum
CPT/HCPCS: 70486

== ENCOUNTER → 2022-05-30 09:27 | Outpatient (BNVA) | payer BC, SELFPAY | PROVIDERS: PCP Internal Medicine; Visit Provider Internal Medicine Pulmonary Disease | DX: Z13.89 Encounter for screening for other disorder (principal) ==

== ENCOUNTER 2022-06-11 08:13 | Outpatient (REF) | payer BC, SELFPAY ==
--- NOTE | ~2022-06-11 | MM_ITS ---
EXAMINATION: MM SCREENING DIGITAL BREAST TOMOSYNTHESIS, BILATERAL CLINICAL INFORMATION: Screening. Asymptomatic. The lifetime risk of breast cancer based on the Tyrer-Cuzick Model is 3%. COMPARISON: Mammography: 06/08/2021 (new baseline). TECHNIQUE: Digital breast tomosynthesis is performed in both the craniocaudal and mediolateral oblique views along with computer-aided detection (CAD). Synthesized 2D images are generated from the tomosynthesis. FINDINGS: The breasts are heterogeneously dense, which may obscure small masses (ACR BI-RADS breast composition Category c). There are no significant masses, abnormal calcifications, or other abnormalities. There is no architectural abnormality. The axilla and skin contours are unremarkable. No significant changes. MM/MM tomosynthesis screening BI IMPRESSION: No mammographic evidence of malignancy. ASSESSMENT: BI-RADS 1: Negative RECOMMENDATION: Routine annual mammography screening. This patient's information was entered into a reminder system with a target due date for their next mammogram.
== END 2022-06-11 08:14 | disposition home or self-care (01) ==
LOC: HO.MAMMO 08:13
PROVIDERS: PCP Internal Medicine; Visit Provider Internal Medicine
DX: Z12.31 Encounter for screening mammogram for malignant neoplasm of breast (principal)
CPT/HCPCS: 77063; 77067

== ENCOUNTER 2022-07-09 07:39 | Outpatient (REF) | payer BC, SELFPAY ==
[2022-07-09 08:11] LABS: Appearance Urine Clear; Color Urine Yellow; Glucose Urine UA Negative (Negative); Leukocyte Esterase Urine Trace (Negative); Nitrite Urine Negative (Negative); PH 5.5 (5.0-9.0); UMIC TRIGGER UACC YES; Urine Blood Small (1+) (Negative); Urine Ketones Negative (Negative); Urine Protein Negative (Neg-Trace)
[2022-07-09 08:41] LABS: Bacteria Urine None Seen (None Seen); Hyaline Casts Urine 0-2 /LPF (0-2); Squamous Epithelial Cell Urine 0-2 /HPF (0-2); WBC Urine 0-5 /HPF (0-5)
== END 2022-07-09 07:40 | disposition home or self-care (01) ==
LOC: HO.LAB 07:39
PROVIDERS: PCP Internal Medicine; Visit Provider Internal Medicine
DX: I10 Essential (primary) hypertension (principal); R82.90 Unspecified abnormal findings in urine
CPT/HCPCS: 81001

== ENCOUNTER 2022-11-05 06:59 | Outpatient (REF) | payer BC, SELFPAY ==
[2022-11-05 07:23] LABS: MANUAL DIFF FLAG NO
[2022-11-05 07:51] LABS: Basophils Percent Auto 0.2 % (0-2); Eosinophils Absolute Auto 0.1 X10*3/uL (0.0-0.4); Eosinophils Percent Auto 1.7 % (0-4); Hematocrit 45.6 % (37.0-47.0); Hemoglobin 14.6 g/dl (12.0-16.0); Imm Gran Abs Auto 0.02 X10*3/uL (0.00-0.03); Imm Gran Pct Auto 0.3 % (0.0-0.4); Lymphocytes Absolute Auto 2.7 X10*3/uL (1.2-4.9); Lymphocytes Percent Auto 44.8 % (20-40); Mean Platelet Volume 9.5 fL (9.4-12.3); Monocytes Absolute Auto 0.4 X10*3/uL (0.1-1.2); Monocytes Percent Auto 7.4 % (2-11); Neutrophils Absolute Auto 2.7 x10*3/uL (2.0-8.3); Neutrophils Percent Auto 45.6 % (45-73); Platelet Count 268 X10*3/uL (160-400); Red Blood Count 4.56 X10*6/uL (4.20-5.50); Red Cell Distribution Width 12.7 % (11.0-16.0); White Blood Count 5.9 X10*3/uL (4.8-10.8)
[2022-11-05 09:25] LABS: Appearance Urine Clear; Color Urine Yellow; Glucose Urine UA Negative (Negative); Leukocyte Esterase Urine Negative (Negative); Nitrite Urine Negative (Negative); PH 7.5 (5.0-9.0); Specific Gravity - Urine 1.015 (1.005-1.025); UMIC TRIGGER UACC YES; Urine Blood Trace (Negative); Urine Ketones Negative (Negative); Urine Protein Negative (Neg-Trace)
[2022-11-05 09:33] LABS: Bacteria Urine None Seen (None Seen); Hyaline Casts Urine 0-2 /LPF (0-2); Squamous Epithelial Cell Urine 0-2 /HPF (0-2); WBC Urine 0-5 /HPF (0-5)
[2022-11-05 10:28] LABS: Alanine Aminotransferase 22 U/L (0-31); Albumin Level 4.1 g/dL (3.5-5.0); Alkaline Phosphatase 92 U/L (39-117); Anion Gap 12 (12-20); Aspartate Amino Transferase 32 U/L (5-31); Bilirubin Total 0.4 mg/dL (0.0-1.0); Blood Urea Nitrogen 11 mg/dL (9-16); Calcium 9.7 mg/dL (8.4-10.2); Carbon Dioxide 30 mmol/L (22-29); Chloride 106 mmol/L (96-108); Cholesterol 166 mg/dL; Estimated Glomerular Filt Rate > 60; Glucose Fasting 103 mg/dL (60-99); HDL Cholesterol 41 mg/dL; LDL Cholesterol Calculated 104 mg/dl; Potassium 4.6 mmol/L (3.3-5.1); Sodium 143 mmol/L (135-145); Total Protein 6.9 g/dL (6.5-8.0); Triglycerides 105 mg/dL; Vitamin D 25-OH Total 93.5 ng/mL (>30)
== END 2022-11-05 07:00 | disposition home or self-care (01) ==
LOC: HO.LAB 06:59
PROVIDERS: PCP Internal Medicine; Visit Provider Internal Medicine
DX: I10 Essential (primary) hypertension (principal); E55.9 Vitamin D deficiency, unspecified; E78.00 Pure hypercholesterolemia, unspecified
CPT/HCPCS: 36415; 80053; 80061; 81001; 82306; 84443; 85025

== ENCOUNTER 2022-11-08 11:16 | Outpatient (AMB) | payer BC, SELFPAY ==
[2022-11-08 11:20] VITALS: BP 100/68; PULSE 101; O2SAT 97; BMI 19.5
--- NOTE | 2022-11-08 11:20 | A.OFFPC_ITS ---
Vital Signs 11/08/22 11:20 Height 4 ft 11 in Weight 96 lb 6 oz BMI 19.5 BP 100/68 Blood Pressure Location Lt brachial Position Sitting Pulse 101 H Pulse Source Pulse Oximeter Pulse Oximetry (%) 97 Oxygen Delivery Method Room Air Intake Visit Reasons: hyperlipidemia, COPD, osteoporosis Supply Teacher Required: No Accompanied by: Self / Same As Patient Allergies aspirin [Aspirin] Allergy (Unknown, Verified 11/08/22 11:51) RASH diphenhydramine [From Benadryl] Allergy (Unknown, Verified 11/08/22 11:51) Unknown iron [Iron] Allergy (Unknown, Verified 11/08/22 11:51) VAGINAL INFECTION menthol [From Antihistamine] Allergy (Unknown, Verified 11/08/22 11:51) DIFF BREATHING penicillin V Allergy (Unknown, Verified 11/08/22 11:51) hives Penicillins Allergy (Unknown, Verified 11/08/22 11:51) Hives Sulfa (Sulfonamide Antibiotics) Allergy (Unknown, Verified 11/08/22 11:51) RASH ciprofloxacin Adverse Reaction (Severe, Verified 11/08/22 11:51) Headache Medication List - Last Reconciled 11/08/22 by Jason Bansal MD acetaminophen (Tylenol) 650 mg (2 x 325 mg) PO Q6H PRN albuterol sulfate 2.5 mg (3 mL) inhalation Q6H PRN 30 days betamethasone dipropionate 0.05% 1 appl topical BID PRN cholecalciferol (vitamin D3) 50 mcg PO DAILY ciprofloxacin HCl 250 mg PO BID citalopram 10 mg PO DAILY meclizine 25 mg PO DAILY PRN nitrofurantoin monohyd/m-cryst 100 mg (Macrobid) 100 mg PO Q12H 7 days phenazopyridine (Pyridium) 200 mg PO TID 3 days ropinirole 0.5 mg PO BEDTIME 90 days simvastatin 10 mg PO DAILY 90 days tiotropium-olodaterol 2.5-2.5 mcg/actuation (Stiolto Respimat) 2 puffs inhalatio n DAILY 90 days trazodone 50 mg PO BEDTIME PRN 30 days Tobacco use date assessed: 11/08/22 Fall risk assessment: No Falls in past year Last assessed Fall Risk: 11/08/22 Dental Screening Dental Screen Date: 11/08/22 Did you have a dental visit in the last 12 months?: No Did you have a dental problem in the last 6 months where you did not have access to dental care?: No Was dental information given to patient?: No HPI hyperlipidemia, COPD, osteoporosis HPI Details Patient comes in today for her follow up visit States that she has had a sinus infection x 4 days She denies any fever but relates (+) sore throat and states that she has been co ughing up some thick whitish to yellowish phlegm lately She denies any headaches or dizziness Denies any chest pains, no increased SOB except with activity but chest feels congested lately No nausea/vomiting, no abdominal pain No change in bowel habits noted Had her follow up labs done a couple of days ago - to discuss her results [facility] [place] Medical History Anxiety COPD (chronic obstructive pulmonary disease) Hemoptysis Insomnia Lumbar degenerative disc disease Major depression, recurrent Osteoporosis Pure hypercholesterolemia Restless legs syndrome (RLS) Smoker Vertigo Vitamin D deficiency Surgical History History of breast surgery History of colonoscopy (~12/1999) Family History Father Duehi-Dvayd-Wcern syndrome Mother Hypertension Paternal Aunt Gdgai-Toxez-Mlyzh syndrome Social History Housing: House Alcohol intake: never Patient Tobacco Use Status: Current everyday Tobacco user Cigarettes Per Day: 10 e-Cigarette/Vaping Use: Never Used Second Hand Smoke Exposure: Yes service: No Current occupational status: retired Cognitive needs: No Hearing needs: No Vision needs: Yes Questionnaire PHQ-9 Over the last 2 weeks, how often have you been bothered by any of the following problems? 1. Little interest or pleasure in doing things: not at all 2. Feeling down, depressed, or hopeless: not at all 3. Trouble falling or staying asleep, or sleeping too much: not at all 4. Feeling tired or having little energy: not at all 5. Poor appetite or overeating: not at all 6. Feeling bad about yourself - or that you are a failure or have let yourself or your family down: not at all 7. Trouble concentrating on things, such as reading the newspaper or watching television: not at all 8. Moving or speaking so slowly that other people could have noticed. Or the opposite - being so fidgety or restless that you have been moving around a lot more than usual: not at all 9. Thoughts that you would be better off or of hurting yourself in some way: not at all Total score: 0 Depression Screening Interpretation: Negative [id number] - PHQ-9 Billing: Yes Source: Developed by Drs. Elio Valenzuela, Tammy Rosenberg, Jerzy Nicholson and colleagues, with an educational herminio from [employer]. Thrive Questionnaire Date Thrive assessed: 11/08/22 I am a: Patient What is your living situation today?: I have a steady place to live Within the past 12 months, did the food you bought not last and you didn't have the money to get more?: Never true Within the past 12 months, did you worry whether your food would run out before you got money to buy more?: Never true Do you have trouble paying for medicines?: No Do you have trouble getting transportation to medical appointments?: No Do you have trouble paying your heating and electricity bill?: No Do you have trouble taking care of your child, family member or friend?: No Do you have trouble with day-to-day activities such as bathing, preparing meals, shopping, managing finances, etc.?: No Are you currently unemployed and looking for a job?: No Are you interested in more education?: No Please select the resources that you would like help with: None Currently or been in a relationship where the following occur: no concerns reported AUDIT C Alcohol Use Questionnaire (AUDIT-C) 1. How often do you have a drink containing alcohol?: Never 3. How often do you have six or more drinks on one occasion?: Never Total Score: 0 Score Reviewed/Action Taken: Yes KAMI-7 AMB Questionnaire KAMI-7 Date KAMI - 7 assessed: 11/08/22 Feeling nervous, anxious, or on edge: 0 = Not at all Not being able to stop or control worryin = Not at all Worrying too much about different things: 0 = Not at all Trouble relaxin = Not at all Being so restless that it is hard to sit still: 0 = Not at all Becoming easily annoyed or irritable: 0 = Not at all Feeling afraid as if something awful might happen: 0 = Not at all Total KAMI-7 score (0-4 normal; 5-9 mild; 10-14 moderate; 15-21 severe): 0 Source: Developed by Drs. Elio Valenzuela, Tammy Rosenberg, Jerzy Nicholson and colleagues, with an educational herminio from [employer]. Review of Systems Const Denies chills, Reports difficulty sleeping, Reports fatigue, Denies fever(s) and Denies headache(s) ENT Denies dysphagia, Denies dizziness, Denies otalgia, Denies headache(s), Reports nasal congestion, Denies odynophagia, Denies sinus pressure and Reports sore throat Card Denies chest pain, Denies palpitations and Reports dyspnea on exertion (mild) Resp Reports chest congestion (chest feels tight at times), Reports cough, Reports dyspnea on exertion (mild) and Denies wheezing GI Denies abdominal pain, Denies constipation, Denies dysphagia, Denies heartburn, Denies diarrhea, Denies nausea, Denies odynophagia and Denies vomiting Denies difficulty voiding, Denies nocturia and Denies dysuria Musc Reports arthralgias (right shoulder) Neuro Denies dizziness and Denies headache(s) Endo Reports fatigue and Denies palpitations Aller/Immun Denies wheezing Physical exam (Primary Care) Vital Signs: Last Vital Signs Pulse 101 H 11/08/22 11:20 BP 100/68 11/08/22 11:20 Pulse Ox 97 11/08/22 11:20 Oxygen Delivery Method Room Air 11/08/22 11:20 BMI result Body Mass Index 19.5 Tobacco/Smoking Status: Tobacco use Status Tobacco use date assessed 11/08/22 11/08/22 11:23 Patient Tobacco Use Status Current everyday Tobacco 11/08/22 11:23 e-Cigarette/Vaping Use Never Used 11/08/22 11:23 PHQ-9: PHQ-9 Score PHQ-9: Total score 0 11/08/22 11:59 Depression Screening Interpretation: Negative Thrive Assessment: Date of Thrive Assessment Date Thrive assessed 11/08/22 11/08/22 11:23 Currently or been in a relationship where the following occur: no concerns reported Const General: no acute distress and alert HENMT Ears: TM's normal bilaterally and EAC's normal Face and sinus: Yes sinus tenderness (mild, bilateral) Throat: Yes tonsils normal (no TP congestion) and Yes posterior oropharynx abnormal (increased erythema) Neck Neck: Yes no lymphadenopathy and Yes supple Resp Auscultation: no rales, rhonchi (scattered) throughout, no wheezes and diminished lung sounds (slightly) bilateral Cardio Rate: regular rate Rhythm: regular rhythm Heart sounds: no murmurs GI Palpation (GI): Soft to palpation, nontender and No hepatosplenomegaly present Back/Spine/Pelvis Thoracic/Lumbar Spine: lumbar spinal tenderness Extrem General: Yes no clubbing, cyanosis or edema Right upper extremity: shoulder/upper arm Details: tenderness Location: of the A-C joint Results Reviewed Results Reviewed: Laboratory Tests 11/05/22 11/05/22 11/05/22 07:21 07:21 Unknown WBC 5.9 Hgb 14.6 Hct 45.6 Plt Count 268 Sodium 143 Potassium 4.6 Creatinine 0.74 Estimated GFR > 60 Fasting Glucose 103 H Calcium 9.7 AST 32 H ALT 22 Triglycerides 105 Cholesterol 166 LDL Cholesterol, Calc 104 HDL Cholesterol 41 25-OH Vitamin D Total 93.5 TSH 1.70 Urine pH 7.5 Ur Specific [place] 1.015 Urine Protein Negative Urine Glucose (UA) Negative Urine Blood Trace H Assessment and Plan Assessment & Plan (1) Pure hypercholesterolemia: Code(s): E78.00 - Pure hypercholesterolemia, unspecified Plan: Results of her labs done a couple of days ago reviewed and discussed with patient Reinforced low cholesterol diet Continue Simvastatin 10 mg Q HS Will recheck her labs and fasting lipids in 4 months for follow up (2) COPD exacerbation: Code(s): J44.1 - Chronic obstructive pulmonary disease with (acute) exacerbation Plan: Patient appears to be experiencing exacerbation again of her COPD at present Will start her on Azithromycin QD x 5 days and oral Prednisone 20 mg QD x 5 days Continue Stiolto Respimat 2.5-2.5 mcg 2 inhalations QD and Albuterol HFA 1 to 2 inhalations Q 6 hours PRN Follow up with pulmonary as scheduled (3) Pulmonary nodules: Code(s): R91.8 - Other nonspecific abnormal finding of lung field Plan: Stable on most recent chest CT in January [address] in 1 year (January 2023) for follow up Follow up with pulmonary as scheduled (4) Vitamin D deficiency: Code(s): E55.9 - Vitamin D deficiency, unspecified Plan: Continue Vitamin D3 2000 units 1 capsule every other day (5) Lumbar degenerative disc disease: Code(s): M51.36 - Other intervertebral disc degeneration, lumbar region Plan: Reinforced activity and weight-lifting restrictions to avoid aggravating her low back pain Continue Tizanidine 4 mg TID PRN (6) Arthritis of right shoulder region: Code(s): M19.011 - Primary osteoarthritis, right shoulder Plan: X-rays of the right shoulder done last year revealed (+) AC arthritis changes Instructed to continue with the shoulder exercises that she was previously instructed on to help manage her shoulder symptoms Have advised patient again of the option of physical therapy referral if needed; patient has to pay out a large co-pay every time she goes to physical therapy and she would like to hold off on doing this for now unless it is absolutely necessary Can also consider referral to orthopedics if her shoulder pain progresses or gets worse (7) Osteoporosis: Code(s): M81.0 - Age-related osteoporosis without current pathological fracture Qualifiers: Osteoporosis type: age-related Presence of current pathological fracture: without current pathological fracture Qualified Code(s): M81.0 - Age- related osteoporosis without current pathological fracture Plan: Repeat BMD done in July 2021 revealed (+) further decline in her BMD from previous (-10.7% decline in the lumbar spine and a -17% decline in the femur) - lowest T-score value is now at -4.4 BMD done back on 06/29/2017 showed (+) osteoporosis with lowest T score of -3.7, with a 6.2% decrease from previous BMD in AP spine and 17.3% decrease from previous BMD in the left femur Fall precautions reinforced but encouraged again to continue to stay active and exercise regularly Continue Vitamin D and Calcium supplements daily Discussed again need to consider referral to endocrinology for further management and Rx - patient would like to think about this for the time being (8) Recurrent vertigo: Code(s): R42 - Dizziness and giddiness Plan: States that she has been able to keep the symptoms from recurring by not sleeping on her left side Has been seen by ENT and so far, has reportedly been told that they cannot find anything else wrong with her and have suggested trial of canalith positioning if symptoms continue to recur (9) Restless legs syndrome (RLS): Code(s): G25.81 - Restless legs syndrome Plan: Continue Ropinirole 0.5 mg Q HS (10) Insomnia: Code(s): G47.00 - Insomnia, unspecified Qualifiers: Insomnia type: unspecified Qualified Code(s): G47.00 - Insomnia, unspecified Plan: Sleep hygiene reinforced Was started her on a trial of Trazodone 50 mg Q HS PRN but she has not started on this yet due to concerns about potential side effects and dependence (11) Anxiety: Code(s): F41.9 - Anxiety disorder, unspecified Plan: Controlled on her current Rx (Citalopram) (12) Major depression, recurrent: Code(s): F33.9 - Major depressive disorder, recurrent, unspecified Qualifiers: Active/Remission status: currently active Major depression episode severity: unspecified Qualified Code(s): F33.9 - Major depressive disorder, r ecurrent, unspecified Plan: Continue Citalopram 10 mg QD (13) Smoker: Code(s): F17.200 - Nicotine dependence, unspecified, uncomplicated Plan: Counseled again on smoking cessation Plan Follow up in 4 months Orders: Orders Lipid Panel 4 Months E78.00 - Pure hypercholesterolemia, unspecified Comprehensive [place]. Panel Fast 4 Months E78.00 - Pure hypercholesterolemia, unspecified Vitamin D 25-OH Total 4 Months E55.9 - Vitamin D deficiency, unspecified Complete Blood Count Auto Diff 4 Months I10 - Essential (primary) hypertension Medications: New azithromycin take 500 mg today (day 1), then 250 mg for 4 days (days 2-5) PO 6 tabs 0RF prednisone 20 mg PO DAILY 5 days 5 tabs 0RF Coding Level of Care Code Est Pt Level 4 (36484) Diagnoses Pure hypercholesterolemia E78.00 COPD exacerbation J44.1 Pulmonary nodules R91.8 Vitamin D deficiency E55.9 Lumbar degenerative disc disease M51.36 Arthritis of right shoulder region M19.011 Osteoporosis M81.0 Osteoporosis type: age-related Presence of current pathological fracture: without current pathological fracture Recurrent vertigo R42 Restless legs syndrome (RLS) G25.81 Insomnia G47.00 Insomnia type: unspecified Anxiety F41.9 Major depression, recurrent F33.9 Active/Remission status: currently active Major depression episode severity: unspecified Smoker F17.200
== END 2022-11-08 12:19 | disposition home or self-care (01) ==
PROVIDERS: PCP Internal Medicine; Visit Provider Internal Medicine
DX: J44.1 Chronic obstructive pulmonary disease with (acute) exacerbation (principal); E55.9 Vitamin D deficiency, unspecified; F41.9 Anxiety disorder, unspecified; F33.9 Major depressive disorder, recurrent, unspecified; F17.200 Nicotine dependence, unspecified, uncomplicated; E78.00 Pure hypercholesterolemia, unspecified; R91.8 Other nonspecific abnormal finding of lung field; M51.36 Other intervertebral disc degeneration, lumbar region; M19.011 Primary osteoarthritis, right shoulder; M81.0 Age-related osteoporosis without current pathological fracture; R42 Dizziness and giddiness; G25.81 Restless legs syndrome
CPT/HCPCS: 99214

== ENCOUNTER 2023-01-29 07:16 | Outpatient (REF) | payer BC, SELFPAY ==
--- NOTE | ~2023-01-29 | CT_ITS ---
EXAMINATION: CT CHEST WITHOUT CONTRAST CLINICAL INFORMATION: Follow-up lung nodules COMPARISON: Thoracic CT of 02/09/2022 TECHNIQUE: Multidetector volumetric CT imaging of the chest was done. Axial MIP volume rendering provided. Sagittal and coronal reformatted images were obtained. This CT examination was performed using dose optimization techniques as appropriate, variously including the following: *Automated exposure control *Adjustment of mA and/or kV according to patient size (this includes techniques or standardized protocols for targeted exams where dose is matched to indication/reason for exam; i.e. extremities or head) *Use of iterative reconstruction technique DLP: 65 mGy-cm FINDINGS: DETACKER: Hyperinflation. LUNGS: Mild to moderate centrilobular emphysema is again evident. Calcified granuloma in the left upper lobe and left lower lobe are stable. Scattered tiny micronodules, subpleural scarring in both apices, and discoid atelectasis or scar at the right lung base are stable. No new mass, nodule or consolidation has developed. The trachea and major bronchi are patent. MEDIASTINUM: No adenopathy is evident. CORONARY ARTERY CALCIFICATION: There are calcifications of the left main, anterior descending, circumflex and right coronary arteries. Aortic annulus calcifications are also evident. PLEURA: There is no pleural effusion. No pleural mass or thickening. AXILLA: No lymphadenopathy. UPPER ABDOMEN: Unremarkable. OSSEOUS STRUCTURES: No suspicious bone lesions. Superior endplate sclerosis at T12 is stable. CT/CT chest wo IV con IMPRESSION: 1. Since 02/09/2022, no significant interval change, including mild to moderate emphysema, calcified left upper and left lower lobe granulomata, scattered micronodules and subpleural apical scarring. 2. No new disease or suspicious findings in the chest. 3. Coronary artery and aortic annular calcifications. 4. In this patient at elevated risk, annual low-dose screening chest CT is recommended. Fleischner guidelines were followed.
== END 2023-01-29 07:17 | disposition home or self-care (01) ==
LOC: HO.CT 07:16
PROVIDERS: PCP Internal Medicine; Visit Provider Internal Medicine Pulmonary Disease
DX: R91.8 Other nonspecific abnormal finding of lung field (principal)
CPT/HCPCS: 71250

== ENCOUNTER 2023-03-11 07:30 | Outpatient (REF) | payer BC, SELFPAY ==
[2023-03-11 07:43] LABS: MANUAL DIFF FLAG NO
[2023-03-11 07:52] LABS: Basophils Percent Auto 0.4 % (0-2); Eosinophils Absolute Auto 0.1 X10*3/uL (0.0-0.4); Eosinophils Percent Auto 1.7 % (0-4); Hematocrit 44.3 % (37.0-47.0); Hemoglobin 14.4 g/dl (12.0-16.0); Imm Gran Abs Auto 0.01 X10*3/uL (0.00-0.03); Imm Gran Pct Auto 0.2 % (0.0-0.4); Lymphocytes Absolute Auto 1.8 X10*3/uL (1.2-4.9); Lymphocytes Percent Auto 33.8 % (20-40); Mean Corpuscular HGB Conc 32.5 g/dl (31.0-35.0); Mean Corpuscular Hemoglobin 33.4 pg (27.0-33.0); Mean Corpuscular Volume 102.8 fL (80.0-98.0); Mean Platelet Volume 9.5 fL (9.4-12.3); Monocytes Absolute Auto 0.5 X10*3/uL (0.1-1.2); Monocytes Percent Auto 9.1 % (2-11); Neutrophils Absolute Auto 2.9 x10*3/uL (2.0-8.3); Neutrophils Percent Auto 54.8 % (45-73); Platelet Count 234 X10*3/uL (160-400); Red Blood Count 4.31 X10*6/uL (4.20-5.50); Red Cell Distribution Width 12.4 % (11.0-16.0); White Blood Count 5.3 X10*3/uL (4.8-10.8)
[2023-03-11 08:17] LABS: Appearance Urine Clear; Color Urine Yellow; Glucose Urine UA Negative (Negative); Leukocyte Esterase Urine Moderate (2+) (Negative); Nitrite Urine Negative (Negative); PH 5.5 (5.0-9.0); Specific Gravity - Urine 1.025 (1.005-1.025); UMIC TRIGGER UACC YES; Urine Blood Large (3+) (Negative); Urine Ketones Negative (Negative); Urine Protein Trace mg/dL (Neg-Trace)
[2023-03-11 08:25] LABS: Alanine Aminotransferase 33 U/L (0-31); Albumin Level 4.1 g/dL (3.5-5.0); Alkaline Phosphatase 94 U/L (39-117); Anion Gap 13 (12-20); Aspartate Amino Transferase 49 U/L (5-31); Bilirubin Total 0.2 mg/dL (0.0-1.0); Blood Urea Nitrogen 13 mg/dL (9-16); Calcium 9.3 mg/dL (8.4-10.2); Carbon Dioxide 29 mmol/L (22-29); Chloride 104 mmol/L (96-108); Cholesterol 145 mg/dL (<200); Estimated Glomerular Filt Rate > 60; Glucose Fasting 108 mg/dL (60-99); HDL Cholesterol 38 mg/dL (>40); LDL Cholesterol Calculated 86 mg/dL (<100); Potassium 4.1 mmol/L (3.3-5.1); Sodium 142 mmol/L (135-145); Triglycerides 107 mg/dL (<150)
[2023-03-11 08:39] LABS: Vitamin D 25-OH Total 96.2 ng/mL (>30)
[2023-03-11 08:42] LABS: Bacteria Urine None Seen (None Seen); Hyaline Casts Urine 0-2 /LPF (0-2); RBC Urine >20 /HPF (0-2); Squamous Epithelial Cell Urine 0-2 /HPF (0-2); WBC Urine 0-5 /HPF (0-5)
== END 2023-03-11 07:31 | disposition home or self-care (01) ==
LOC: HO.LAB 07:30
PROVIDERS: PCP Internal Medicine; Visit Provider Internal Medicine
DX: E78.00 Pure hypercholesterolemia, unspecified (principal); E55.9 Vitamin D deficiency, unspecified; I10 Essential (primary) hypertension
CPT/HCPCS: 36415; 80053; 80061; 81001; 81003; 82306; 85025

== ENCOUNTER 2023-03-14 11:40 | Outpatient (AMB) | payer BC, SELFPAY ==
[2023-03-14 11:44] VITALS: BP 102/70; PULSE 90; O2SAT 94; BMI 19.3
--- NOTE | 2023-03-14 11:44 | MHC.PC.OV ---
Vital Signs 03/14/23 11:44 Height 4 ft 11 in Weight 95 lb 6 oz BMI 19.3 BP 102/70 Blood Pressure Location Lt brachial Position Sitting Pulse 90 Pulse Source Pulse Oximeter Pulse Oximetry (%) 94 Oxygen Delivery Method Room Air Intake Visit Reasons: 4 month f/u [employer] Staff Required: No Accompanied by: Self / Same As Patient Allergies aspirin [Aspirin] Allergy (Unknown, Verified 03/14/23 12:40) RASH diphenhydramine [From Benadryl] Allergy (Unknown, Verified 03/14/23 12:40) Unknown iron [Iron] Allergy (Unknown, Verified 03/14/23 12:40) VAGINAL INFECTION menthol [From Antihistamine] Allergy (Unknown, Verified 03/14/23 12:40) DIFF BREATHING penicillin V Allergy (Unknown, Verified 03/14/23 12:40) hives Penicillins Allergy (Unknown, Verified 03/14/23 12:40) Hives Sulfa (Sulfonamide Antibiotics) Allergy (Unknown, Verified 03/14/23 12:40) RASH ciprofloxacin Adverse Reaction (Severe, Verified 03/14/23 12:40) Headache Medication List - Last Reconciled 03/14/23 by Jason Bansal MD acetaminophen (Tylenol) 650 mg (2 x 325 mg) PO Q6H PRN albuterol sulfate 2.5 mg (3 mL) inhalation Q6H PRN 30 days betamethasone dipropionate 0.05% 1 appl topical BID PRN cholecalciferol (vitamin D3) 50 mcg PO DAILY citalopram 10 mg PO DAILY meclizine 25 mg PO DAILY PRN ropinirole 0.5 mg PO BEDTIME simvastatin 10 mg PO DAILY 90 days tiotropium-olodaterol 2.5-2.5 mcg/actuation (Stiolto Respimat) 2 puffs inhalation DAILY 90 days trazodone 50 mg PO BEDTIME PRN 30 days Tobacco use date assessed: 03/14/23 Fall risk assessment: No Falls in past year Last assessed Fall Risk: 03/14/23 Dental Screening Dental Screen Date: 03/14/23 Did you have a dental visit in the last 12 months?: No Did you have a dental problem in the last 6 months where you did not have access to dental care?: No Was dental information given to patient?: No HPI 4 month f/u HPI Details Patient comes in today for her follow up visit States that she has a sinus infection that has been going on for about a week now Reports experiencing increased pressure and discomfort and a recurrent sensation of heat/warmth behind her eyes lately Adds that she has been coughing a lot over the past few days to a point where she got hoarse and lost her voice over the past 3 days Her throat also feels sore and she's had recurrent nose bleeds lately States that she coughs up scanty thick greenish phlegm at times Relates (+) on and off headaches; denies any fever Denies any chest pains; (+) SOB and MCINTOSH at times and states that her chest feels congested frequently lately No nausea/vomiting, no abdominal pain No change in bowel habits noted Needs her Mometasone cream and Ropinirole Rx refilled Had her follow up labs done a few days ago - to discuss her results [facility] Medical History Insomnia Hemoptysis Osteoporosis Smoker Major depression, recurrent Anxiety Lumbar degenerative disc disease Vitamin D deficiency Pure hypercholesterolemia COPD (chronic obstructive pulmonary disease) Restless legs syndrome (RLS) Vertigo Surgical History History of colonoscopy (~12/1999) History of breast surgery Family History Father Gyedo-Pkhou-Xollt syndrome Mother Hypertension Paternal Aunt Pgilb-Vefhv-Txsdz syndrome Social History Housing: House Alcohol intake: never Patient Tobacco Use Status: Current everyday Tobacco user Cigarettes Per Day: 10 e-Cigarette/Vaping Use: Never Used Second Hand Smoke Exposure: Yes service: No Current occupational status: retired Cognitive needs: No Hearing needs: No Vision needs: Yes Questionnaire PHQ-9 Over the last 2 weeks, how often have you been bothered by any of the following problems? 1. Little interest or pleasure in doing things: not at all 2. Feeling down, depressed, or hopeless: not at all 3. Trouble falling or staying asleep, or sleeping too much: not at all 4. Feeling tired or having little energy: not at all 5. Poor appetite or overeating: not at all 6. Feeling bad about yourself - or that you are a failure or have let yourself or your family down: not at all 7. Trouble concentrating on things, such as reading the newspaper or watching television: not at all 8. Moving or speaking so slowly that other people could have noticed. Or the opposite - being so fidgety or restless that you have been moving around a lot more than usual: not at all 9. Thoughts that you would be better off or of hurting yourself in some way: not at all Total score: 0 Depression Screening Interpretation: Negative Depression Screening Done: Yes 82646 - PHQ-9 Billing: Yes Source: Developed by Drs. Elio Valenzuela, Tammy Rosenberg, Jerzy Nicholson and colleagues, with an educational herminio from [employer]. Thrive Questionnaire Date Thrive assessed: 03/14/23 I am a: Patient What is your living situation today?: I have a steady place to live Within the past 12 months, did the food you bought not last and you didn't have the money to get more?: Never true Within the past 12 months, did you worry whether your food would run out before you got money to buy more?: Never true Do you have trouble paying for medicines?: No Do you have trouble getting transportation to medical appointments?: No Do you have trouble paying your heating and electricity bill?: No Do you have trouble taking care of your child, family member or friend?: No Do you have trouble with day-to-day activities such as bathing, preparing meals, shopping, managing finances, etc.?: No Are you currently unemployed and looking for a job?: No Are you interested in more education?: No Please select the resources that you would like help with: None Currently or been in a relationship where the following occur: no concerns reported AUDIT C Alcohol Use Questionnaire (AUDIT-C) 1. How often do you have a drink containing alcohol?: Never 3. How often do you have six or more drinks on one occasion?: Never Total Score: 0 Score Reviewed/Action Taken: Yes KAMI-7 AMB Questionnaire KAMI-7 Date KAMI - 7 assessed: 03/14/23 Feeling nervous, anxious, or on edge: 0 = Not at all Not being able to stop or control worryin = Not at all Worrying too much about different things: 0 = Not at all Trouble relaxin = Not at all Being so restless that it is hard to sit still: 0 = Not at all Becoming easily annoyed or irritable: 0 = Not at all Feeling afraid as if something awful might happen: 0 = Not at all Total KAMI-7 score (0-4 normal; 5-9 mild; 10-14 moderate; 15-21 severe): 0 Source: Developed by Drs. Elio Valenzuela, Tammy Rosenberg, Jerzy Nicholson and colleagues, with an educational herminio from [employer]. Review of Systems Const Denies chills, Reports difficulty sleeping, Reports fatigue, Denies fever(s) and Reports headache(s) (on and off) ENT Denies dysphagia, Denies dizziness, Denies otalgia, Reports headache(s) (on and off), Reports hoarseness, Reports epistaxis (on and off lately), Reports nasal congestion, Denies odynophagia, Reports sinus pressure and Reports sore throat (mild) Card Denies chest pain, Denies palpitations and Reports dyspnea on exertion (mild) Resp Reports chest congestion (chest feels tight at times), Reports cough (coughs up scanty thick greenish phlegm), Reports dyspnea on exertion (mild) and Denies wheezing GI Denies abdominal pain, Denies constipation, Denies dysphagia, Denies heartburn, Denies diarrhea, Denies nausea, Denies odynophagia and Denies vomiting Denies difficulty voiding, Denies nocturia and Denies dysuria Musc Reports arthralgias (right shoulder) Skin/Breast Denies rash Neuro Denies dizziness and Reports headache(s) (on and off) Endo Reports fatigue and Denies palpitations Aller/Immun Denies wheezing Physical exam (Primary Care) Vital Signs: Last Vital Signs Pulse 90 03/14/23 11:44 BP 102/70 03/14/23 11:44 Pulse Ox 94 03/14/23 11:44 Oxygen Delivery Method Room Air 03/14/23 11:44 BMI result Body Mass Index 19.3 Tobacco/Smoking Status: Tobacco use Status Tobacco use date assessed 03/14/23 03/14/23 11:45 Patient Tobacco Use Status Current everyday Tobacco 03/14/23 11:45 e-Cigarette/Vaping Use Never Used 03/14/23 11:45 PHQ-9: PHQ-9 Score PHQ-9: Total score 0 03/14/23 12:38 Depression Screening Interpretation: Negative Thrive Assessment: Date of Thrive Assessment Date Thrive assessed 03/14/23 03/14/23 11:45 Currently or been in a relationship where the following occur: no concerns reported Const General: no acute distress and alert HENMT Ears: TM's normal bilaterally and EAC's normal Face and sinus: Yes sinus tenderness (mild, bilateral) Throat: Yes tonsils normal (no TP congestion) and Yes posterior oropharynx abnormal (increased erythema) Neck Neck: Yes no lymphadenopathy and Yes supple Resp Auscultation: no rales, rhonchi (scattered) throughout, no wheezes, diminished lung sounds (slightly) bilateral and bronchial breath sounds Cardio Rate: regular rate Rhythm: regular rhythm Heart sounds: no murmurs GI Palpation (GI): Soft to palpation and nontender Auscultation: normal bowel sounds Back/Spine/Pelvis Thoracic/Lumbar Spine: lumbar spinal tenderness Extrem General: Yes no clubbing, cyanosis or edema Right upper extremity: shoulder/upper arm Details: tenderness Location: of the A-C joint Results Reviewed Results Reviewed: Laboratory Tests 11/05/22 03/11/23 03/11/23 07:21 07:38 07:42 WBC 5.3 Hgb 14.4 Hct 44.3 Plt Count 234 Sodium 142 Potassium 4.1 Creatinine 0.72 Estimated GFR > 60 Fasting Glucose 108 H Calcium 9.3 AST 49 H ALT 33 H Triglycerides 107 Cholesterol 145 LDL Cholesterol, Calc 86 HDL Cholesterol 38 L 25-OH Vitamin D Total 96.2 TSH 1.70 Ur Specific [place] 1.025 Urine Protein Trace Urine Glucose (UA) Negative Urine Blood Large (3+) H Assessment and Plan Assessment & Plan (1) Pure hypercholesterolemia: Code(s): E78.00 - Pure hypercholesterolemia, unspecified Plan: Results of her labs done a few days ago reviewed and discussed with patient Reinforced low cholesterol diet Continue Simvastatin 10 mg Q HS Will recheck her labs and fasting lipids in 4 months for follow up (2) COPD exacerbation: Code(s): J44.1 - Chronic obstructive pulmonary disease with (acute) exacerbation Plan: Patient appears to be experiencing exacerbation again of her COPD at present as well as a sinus infection Will start her on Levofloxacin 500 mg QD x 7 days Continue Stiolto Respimat 2.5-2.5 mcg 2 inhalations QD and Albuterol HFA 1 to 2 inhalations Q 6 hours PRN She is instructed to call at any time if she feels progressively SOB despite her current Rx Follow up with pulmonary as scheduled (3) Pulmonary nodules: Code(s): R91.8 - Other nonspecific abnormal finding of lung field Plan: Stable on most recent chest CT in January 2023 Follow up with pulmonary as scheduled (4) Vitamin D deficiency: Code(s): E55.9 - Vitamin D deficiency, unspecified Plan: Continue Vitamin D3 2000 units 1 capsule every other day (5) Lumbar degenerative disc disease: Code(s): M51.36 - Other intervertebral disc degeneration, lumbar region Plan: Reinforced activity and weight-lifting restrictions to avoid aggravating her low back pain Continue Tizanidine 4 mg TID PRN (6) Arthritis of right shoulder region: Code(s): M19.011 - Primary osteoarthritis, right shoulder Plan: X-rays of the right shoulder done last year revealed (+) AC arthritis changes Instructed to continue with the shoulder exercises that she was previously instructed on to help manage her shoulder symptoms Have advised patient again of the option of physical therapy referral if needed; patient has to pay out a large co-pay every time she goes to physical therapy and she would like to hold off on doing this for now unless it is absolutely necessary Can also consider referral to orthopedics if her shoulder pain progresses or gets worse (7) Osteoporosis: Code(s): M81.0 - Age-related osteoporosis without current pathological fracture Qualifiers: Osteoporosis type: age-related Presence of current pathological fracture: without current pathological fracture Qualified Code(s): M81.0 - Age-related osteoporosis without current pathological fracture Plan: Repeat BMD done in July 2021 revealed (+) further decline in her BMD from previous (-10.7% decline in the lumbar spine and a -17% decline in the femur) - lowest T-score value is now at -4.4 BMD done back on 06/29/2017 showed (+) osteoporosis with lowest T score of -3.7, with a 6.2% decrease from previous BMD in AP spine and 17.3% decrease from previous BMD in the left femur Fall precautions reinforced but encouraged again to continue to stay active and exercise regularly Continue Vitamin D and Calcium supplements daily Discussed again need to consider referral to endocrinology for further management and Rx - patient would like to hold off on this for now (8) Recurrent vertigo: Code(s): R42 - Dizziness and giddiness Plan: States that she has been able to keep the symptoms from recurring by not sleeping on her left side Has been seen by ENT and so far, has reportedly been told that they cannot find anything else wrong with her and have suggested trial of canalith positioning if symptoms continue to recur (9) Restless legs syndrome (RLS): Code(s): G25.81 - Restless legs syndrome Plan: Continue Ropinirole 0.5 mg Q HS (10) Insomnia: Code(s): G47.00 - Insomnia, unspecified Qualifiers: Insomnia type: unspecified Qualified Code(s): G47.00 - Insomnia, unspecified Plan: Sleep hygiene reinforced Was started her on a trial of Trazodone 50 mg Q HS PRN but she has not started on this yet due to concerns about potential side effects and dependence (11) Anxiety: Code(s): F41.9 - Anxiety disorder, unspecified Plan: Controlled on her current Rx (Citalopram) (12) Major depression, recurrent: Code(s): F33.9 - Major depressive disorder, recurrent, unspecified Qualifiers: Active/Remission status: currently active Major depression episode severity: unspecified Qualified Code(s): F33.9 - Major depressive disorder, recurrent, unspecified Plan: Continue Citalopram 10 mg QD (13) Smoker: Code(s): F17.200 - Nicotine dependence, unspecified, uncomplicated Plan: Counseled again on smoking cessation Plan Follow up in 4 months Orders: Orders Hemoglobin A1c 4 Months R73.01 - Impaired fasting glucose Comprehensive [place]. Panel Fast 4 Months E78.00 - Pure hypercholesterolemia, unspecified Lipid Panel 4 Months E78.00 - Pure hypercholesterolemia, unspecified TSH reflex Free T4 4 Months E78.00 - Pure hypercholesterolemia, unspecified UA CC w/rflx Micro + Cult 4 Months R30.0 - Dysuria Vitamin D 25-OH Total 4 Months E55.9 - Vitamin D deficiency, unspecified Complete Blood Count Auto Diff 4 Months I10 - Essential (primary) hypertension Medications: New levofloxacin 500 mg PO DAILY 7 days 7 tabs 0RF Refilled ropinirole 0.5 mg PO BEDTIME 90 tabs 1RF G25.81 - Restless legs syndrome mometasone 0.1% 1 appl topical DAILY PRN 45 grams 5RF rash Coding Level of Care Code Est Pt Level 4 (25313) Diagnoses Pure hypercholesterolemia E78.00 COPD exacerbation J44.1 Pulmonary nodules R91.8 Vitamin D deficiency E55.9 Lumbar degenerative disc disease M51.36 Arthritis of right shoulder region M19.011 Age-related osteoporosis without current pathological fracture M81.0 Osteoporosis type: age-related Presence of current pathological fracture: without current pathological fracture Recurrent vertigo R42 Restless legs syndrome (RLS) G25.81 Insomnia, unspecified type G47.00 Insomnia type: unspecified Anxiety F41.9 Episode of recurrent major depressive disorder, unspecified depression episode severity F33.9 Active/Remission status: currently active Major depression episode severity: unspecified Smoker F17.200
== END 2023-03-14 12:52 | disposition home or self-care (01) ==
PROVIDERS: PCP Internal Medicine; Visit Provider Internal Medicine
DX: E78.00 Pure hypercholesterolemia, unspecified (principal); J44.1 Chronic obstructive pulmonary disease with (acute) exacerbation; F33.9 Major depressive disorder, recurrent, unspecified; R91.8 Other nonspecific abnormal finding of lung field; E55.9 Vitamin D deficiency, unspecified; M51.36 Other intervertebral disc degeneration, lumbar region; M19.011 Primary osteoarthritis, right shoulder; M81.0 Age-related osteoporosis without current pathological fracture; R42 Dizziness and giddiness; G25.81 Restless legs syndrome; G47.00 Insomnia, unspecified
CPT/HCPCS: 99214

== ENCOUNTER 2023-06-02 08:19 | Emergency (ER) | payer BC, SELFPAY ==
[2023-06-02 08:24] VITALS: BP 114/58; PULSE 112; RESP 17; TEMP 36.9; O2SAT 98; BMI 18.8
--- NOTE | 2023-06-02 08:44 | ED.GENADULT ---
HPI - General Adult General Chief complaint: General Medical Stated complaint: Throat swelling Time Seen by Provider: 06/02/23 08:34 Source: patient Mode of arrival: ambulatory Limitations: no limitations History of Present Illness HPI narrative: Patient is a 72-year-old male presents emergency department for evaluation of sore throat. Onset was approximately 3 days ago. Painful swallowing. No globus sensation. No fevers, chills, neck pain, neck stiffness, headache. Has COPD with baseline cough and denies any change to cough frequency or sputum production. Denies associated chest pain or shortness of breath, nausea, vomiting, abdominal pain. Denies any known sick contacts. Related Data Previous Rx's Medication Instructions Recorded betamethasone dipropionate 0.05 % 1 appl topical BID PRN skin 03/14/21 topical cream irritation #45 grams acetaminophen 325 mg tablet 650 mg (2 x 325 mg) PO Q6H PRN 05/31/21 (Tylenol) pain #30 tabs albuterol sulfate 2.5 mg/3 mL 2.5 mg (3 mL) inhalation Q6H PRN 11/24/21 (0.083 %) solution for nebulization shortness of breath or wheezing 30 days #360 mL meclizine 25 mg tablet 25 mg PO DAILY PRN for dizziness 11/24/21 #30 tabs simvastatin 10 mg tablet 10 mg PO DAILY 90 days #90 tabs 04/17/22 tiotropium 2.5 mcg-olodaterol 2.5 2 puff inhalation DAILY 90 days #3 07/13/22 mcg/actuation mist for inhalation inhalers (Stiolto Respimat) cholecalciferol (vitamin D3) 50 50 mcg PO DAILY #90 caps 09/17/22 mcg (2,000 unit) capsule citalopram 10 mg tablet 10 mg PO DAILY #90 tabs 12/07/22 levofloxacin 500 mg tablet 500 mg PO DAILY 7 days #7 tabs 03/14/23 mometasone 0.1 % topical cream 1 appl topical DAILY PRN rash #45 03/14/23 grams ropinirole 0.5 mg tablet 0.5 mg PO BEDTIME #90 tabs 03/14/23 trazodone 50 mg tablet 50 mg PO BEDTIME PRN insomnia 30 04/03/23 days #30 tabs azithromycin 500 mg tablet 500 mg PO DAILY 5 days #5 tabs 06/02/23 Allergies Allergy/AdvReac Type Severity Reaction Status Date / Time aspirin [Aspirin] Allergy Unknown RASH Verified 06/02/23 08:24 diphenhydramine Allergy Unknown Unknown Verified 06/02/23 08:24 [From Benadryl] iron [Iron] Allergy Unknown VAGINAL Verified 06/02/23 08:24 INFECTION menthol [From Antihistamine] Allergy Unknown DIFF Verified 06/02/23 08:24 BREATHING penicillin V Allergy Unknown hives Verified 06/02/23 08:24 Penicillins Allergy Unknown Hives Verified 06/02/23 08:24 Sulfa (Sulfonamide Allergy Unknown RASH Verified 06/02/23 08:24 Antibiotics) ciprofloxacin AdvReac Severe Headache Verified 06/02/23 08:24 Review of Systems Review of Systems: Yes all other systems are reviewed and are negative PMFSH Past Medical History Attestation statement: The following information was validated with the patient. Source: old records reviewed Medical History Insomnia Hemoptysis Osteoporosis Smoker Major depression, recurrent Anxiety Lumbar degenerative disc disease Vitamin D deficiency Pure hypercholesterolemia COPD (chronic obstructive pulmonary disease) Restless legs syndrome (RLS) Vertigo Surgical History History of colonoscopy (~12/1999) History of breast surgery Family History Family History Father Rfsrl-Ccvtx-Aawvq syndrome Mother Hypertension Paternal Aunt Sylzr-Fxsqe-Sgmvy syndrome Social History Social History Housing: House Alcohol intake: never Patient Tobacco Use Status: Current everyday Tobacco user Cigarettes Per Day: 10 e-Cigarette/Vaping Use: Never Used Second Hand Smoke Exposure: Yes Advance Directives: No Advance Directives Information Provided: Yes service: No Current occupational status: retired Cognitive needs: No Hearing needs: No Vision needs: Yes Physical Exam ED Vital Signs: Vital Signs - 24 hr 06/02/23 08:24 Temperature 98.4 F Pulse Rate 112 H Respiratory Rate 17 Blood Pressure 114/58 L Pulse Oximetry 98 BMI result Body Mass Index 18.8 Appearance: Alert.?Oriented to person, place and time. No acute distress.?Normal affect. Eyes: Pupils equal, round and reactive to light.? ENT: Pharynx erythematous without exudates. No tonsillar hypertrophy. Uvula midline. No trismus. No drooling. ? Neck: Normal inspection.? Neck supple.? No cervical lymphadenopathy. Full range of motion. Thyroid normal.. CVS: Heart sounds normal. Normal heart rate and rhythm.? Pulses normal.?? Respiratory: No respiratory distress.? Lung sounds clear to auscultation bilaterally?? Abdomen: Soft and non-tender. Normoactive bowel sounds. ? Skin: Skin warm and dry.? Normal skin color.? Extremities: No lower extremity edema.? No calf ttp? Neuro: Moves all extremities spontaneously. Sensation intact bilaterally. CN II-XII intact. No focal neuro deficits. Ambulates with normal steady gait. Medications Administered Discontinued Medications Generic Name Dose Route Start Last Admin Trade Name Freq PRN Reason Stop Dose Admin Lidocaine HCl 15 ml 06/02/23 09:18 06/02/23 09:52 Lidocaine Hcl Viscous 2 % 15 Ml Solution MUCOUS MEM 06/02/23 09:19 15 ml ONCE ONE Administration Medical Decision Making Medical Decision Making [facility] Narrative: Patient is a 72-year-old female who presents emergency department for evaluation of a sore throat as per HPI. No respiratory distress. Managing secretions. Not consistent with peritonsillar retropharyngeal abscess. Strep a test is negative. Viral panel is also negative. Reports minimal relief from viscous lidocaine. Discussed conservative treatment in addition to course of azithromycin due to allergies for progressively worsening pharyngitis, strict return precautions, outpatient follow-up with the primary care provider. All questions answered. Stable for discharge. Differential Diagnosis Differential Diagnoses: The differential diagnosis associated with the presentation includes (See narrative above) Admission/Observation Consideration of admission/observation: Escalation of care including admission/observation considered (See narrative above) Lab Data [facility] Lab Attestation statement: I reviewed the patient's lab results. (See narrative above) Labs: Lab Results 06/02/23 Range/Units 08:34 Influenza Type A (PCR) NEGATIVE (Negative) Influenza Type B (PCR) NEGATIVE (Negative) RSV RNA Qual (PCR) NEGATIVE (Negative) SARS-CoV-2 RNA (RT-PCR) NEGATIVE (Negative) S. pyogenes GrpA GORDO Negative (Negative) External Record Review External record reviewed: Outpatient record Tests considered The following testing was considered but not selected: CT deferred, clinically low suspicion for HAND WOOD SANDER/RPA Prescription Management I considered prescription management with: Antibiotic Discharge Plan Discharge Clinical Impression: Pharyngitis, acute Patient Disposition: Home, Self-Care Instructions: Pharyngitis (ED) Additional Instructions: Be sure to rest, stay well hydrated drinking plenty of fluids, eat small frequent meals. Tylenol/ibuprofen can be used as needed for fever/pain. [id number] cold medications may be helpful as well for symptoms. Saline nasal spray, humidifier may be helpful You may return to the emergency department with any new or worsening symptoms or concerns. Follow-up with your primary care provider as needed. Prescriptions: New azithromycin 500 mg tablet 500 mg PO DAILY 5 Days Qty: 5 0RF No Action cholecalciferol (vitamin D3) 50 mcg (2,000 unit) capsule 50 mcg PO DAILY Qty: 90 3RF citalopram 10 mg tablet 10 mg PO DAILY Qty: 90 1RF trazodone 50 mg tablet 50 mg PO BEDTIME PRN (Reason: insomnia) 30 Days Qty: 30 2RF betamethasone dipropionate 0.05 % cream 1 appl topical BID PRN (Reason: skin irritation) Qty: 45 2RF acetaminophen [Tylenol] 325 mg tablet 650 mg PO Q6H PRN (Reason: pain) Qty: 30 0RF ropinirole 0.5 mg tablet 0.5 mg PO BEDTIME Qty: 90 1RF mometasone 0.1 % cream 1 appl topical DAILY PRN (Reason: rash) Qty: 45 5RF levofloxacin 500 mg tablet 500 mg PO DAILY 7 Days Qty: 7 0RF meclizine 25 mg tablet 25 mg PO DAILY PRN (Reason: for dizziness) Qty: 30 1RF albuterol sulfate 2.5 mg /3 mL (0.083 %) solution for nebulization 2.5 mg inhalation Q6H PRN (Reason: shortness of breath or wheezing) 30 Days Qty: 360 5RF simvastatin 10 mg tablet 10 mg PO DAILY 90 Days Qty: 90 1RF Stiolto Respimat 2.5-2.5 mcg/actuation mist 2 puff inhalation DAILY 90 Days Qty: 3 3RF Referrals: Jason Bansal MD [Primary Care Provider] -
[2023-06-02 08:48] LABS: IDNOW Serial# 08D9AD1C; Strep A Nucleic Acid Negative (Negative)
[2023-06-02 09:40] LABS: Influenza A PCR NEGATIVE (Negative); Influenza B PCR NEGATIVE (Negative); Resp Syncy Virus RNA Qual PCR NEGATIVE (Negative); SARS COV2 PCR INHOUSE NEGATIVE (Negative)
[2023-06-02] MEDS: Lidocaine HCl Viscous 2 % 15 ML SOLUTION MUCOUS MEM (09:52)
== END 2023-06-02 11:04 | disposition home or self-care (01) ==
PROVIDERS: Emergency Provider Student in an Organized Health Care Education/Training Program; PCP Internal Medicine
DX: J02.9 Acute pharyngitis, unspecified (principal); R05.9 Cough, unspecified; F17.210 Nicotine dependence, cigarettes, uncomplicated; Z11.52 Encounter for screening for COVID-19; Z20.822 Contact with and (suspected) exposure to COVID-19; Z79.899 Other long term (current) drug therapy
CPT/HCPCS: 0241U; 87651; 99283

== ENCOUNTER 2023-06-06 09:02 | Outpatient (AMB) | payer BC, SELFPAY ==
[2023-06-06 09:08] VITALS: BP 92/56; PULSE 95; O2SAT 97; BMI 18.2
--- NOTE | 2023-06-06 09:08 | MHC.OFFVIS ---
Intake Vital Signs 06/06/23 09:08 Height 4 ft 11 in Weight 90 lb BMI 18.2 BP 92/56 L Blood Pressure Location Lt brachial Position Sitting Pulse 95 Pulse Source Doppler Pulse Oximetry (%) 97 Oxygen Delivery Method Room Air Intake Visit Reasons: COPD Allergies aspirin [Aspirin] Allergy (Unknown, Verified 06/06/23 09:11) RASH diphenhydramine [From Benadryl] Allergy (Unknown, Verified 06/06/23 09:11) Unknown iron [Iron] Allergy (Unknown, Verified 06/06/23 09:11) VAGINAL INFECTION menthol [From Antihistamine] Allergy (Unknown, Verified 06/06/23 09:11) DIFF BREATHING penicillin V Allergy (Unknown, Verified 06/06/23 09:11) hives Penicillins Allergy (Unknown, Verified 06/06/23 09:11) Hives Sulfa (Sulfonamide Antibiotics) Allergy (Unknown, Verified 06/06/23 09:11) RASH ciprofloxacin Adverse Reaction (Severe, Verified 06/06/23 09:11) Headache HPI COPD HPI Details 72-year-old lady, active 60+ pack-year smoker followed for underlying moderate COPD.? She has been using Stiolto and albuterol MDI with good control of his symptoms. Her hemoptysis has not recurred. Her follow-up CT chest showed no significant changes from prior. She did have recent pharyngitis treated with a course of azithromycin that is not getting better, though she does complain of persistent cough. [facility], [facility] Medical History Insomnia Hemoptysis Osteoporosis Smoker Major depression, recurrent Anxiety Lumbar degenerative disc disease Vitamin D deficiency Pure hypercholesterolemia COPD (chronic obstructive pulmonary disease) Restless legs syndrome (RLS) Vertigo Surgical History History of colonoscopy (~12/1999) History of breast surgery Family History Father Fgfpl-Dpoth-Aznhl syndrome Mother Hypertension Paternal Aunt Lthrv-Bpoku-Hdvjh syndrome Social History Housing: House Alcohol intake: never Patient Tobacco Use Status: Current everyday Tobacco user Cigarettes Per Day: 10 e-Cigarette/Vaping Use: Never Used Second Hand Smoke Exposure: Yes service: No Current occupational status: retired Cognitive needs: No Hearing needs: No Vision needs: Yes Review of Systems Const Denies daytime sleepiness, Denies excessive sweating, Denies fatigue, Denies fever(s), Denies lethargy, Denies malaise, Denies night sweats, Denies snoring and Denies weight loss Eyes Denies blurry vision and Denies itchy eyes ENT Denies nasal congestion, Denies post nasal drip, Denies sinus pain, Denies sinus pressure and Denies other ( Thrush) Card Denies chest pain, Denies pedal edema, Denies dyspnea, Denies orthopnea and Denies paroxysmal nocturnal dyspnea Resp Reports cough, Denies hemoptysis, Denies excessive phlegm production, Denies dyspnea, Denies snoring and Denies wheezing GI Denies abdominal pain and Denies heartburn Musc Denies myalgias, Denies arthralgias and Denies joint swelling Skin/Breast Denies rash Neuro Denies memory loss and Denies seizure-like activity Psych Denies abnormal sleep pattern, Denies anxiety and Denies memory loss Endo Denies excessive sweating, Denies fatigue and Denies heat intolerance Mack/Lymph Denies easy bruising Aller/Immun Denies itchy eyes, Denies seasonal rhinorrhea and Denies wheezing Physical Exam Vital Signs: Last Vital Signs Pulse 95 06/06/23 09:08 BP 92/56 L 06/06/23 09:08 Pulse Ox 97 06/06/23 09:08 Oxygen Delivery Method Room Air 06/06/23 09:08 BMI result Body Mass Index 18.2 Const General: no acute distress and alert Nutritional Appearance: not obese Orientation/consciousness: Other orientation findings ( oriented) HEENT Head: Yes atraumatic Eyes General: appearance normal, both eyes and all related structures Sclerae: sclerae normal EOM: EOMs intact bilaterally Neck Neck: Yes supple Lymphatic: no lymphadenopathy noted Resp Effort & Inspection: normal respiratory effort and no use of accessory muscles Auscultation: clear to auscultation bilaterally Cardio Rate: regular rate Rhythm: regular rhythm Heart sounds: no gallops, no murmurs and no rubs Skin General skin exam: other ( warm) Extrem General: No clubbing, No cyanosis and No edema Assessment & Plan Assessment & Plan (1) COPD (chronic obstructive pulmonary disease): Code(s): J44.9 - Chronic obstructive pulmonary disease, unspecified Qualifiers: COPD type: unspecified COPD Qualified Code(s): J44.9 - Chronic obstructive pulmonary disease, unspecified Plan: Well controlled on Stiolto and albuterol MDI. Continue current regimen. (2) Pulmonary nodules: Code(s): R91.8 - Other nonspecific abnormal finding of lung field Plan: Results of follow-up CT chest from January of 2023 reviewed, stable pulmonary nodules, will repeat CT chest in January of 2024. Medications: New codeine-guaifenesin 10-100 mg/5 mL 10 mL PO Q4-6H PRN 473 mL 0RF flu symptoms 14 days Coding Level of Care Code Est Pt Level 4 (01504) Diagnoses Chronic obstructive pulmonary disease, unspecified COPD type J44.9 COPD type: unspecified COPD Pulmonary nodules R91.8
== END 2023-06-06 09:31 | disposition home or self-care (01) ==
PROVIDERS: PCP Internal Medicine; Visit Provider Internal Medicine Pulmonary Disease
DX: J44.9 Chronic obstructive pulmonary disease, unspecified (principal); R91.8 Other nonspecific abnormal finding of lung field
CPT/HCPCS: 99214

== ENCOUNTER → 2023-06-06 09:02 | Outpatient (BNVA) | payer BC, SELFPAY | PROVIDERS: PCP Internal Medicine; Visit Provider Internal Medicine Pulmonary Disease ==

== ENCOUNTER 2023-07-11 07:44 | Outpatient (REF) | payer BC, SELFPAY ==
[2023-07-11 08:08] LABS: MANUAL DIFF FLAG NO
[2023-07-11 08:30] LABS: Basophils Percent Auto 0.5 % (0-2); Eosinophils Absolute Auto 0.1 X10*3/uL (0.0-0.4); Eosinophils Percent Auto 1.2 % (0-4); Hematocrit 44.7 % (37.0-47.0); Hemoglobin 14.5 g/dl (12.0-16.0); Imm Gran Abs Auto 0.02 X10*3/uL (0.00-0.03); Imm Gran Pct Auto 0.3 % (0.0-0.4); Lymphocytes Absolute Auto 2.7 X10*3/uL (1.2-4.9); Lymphocytes Percent Auto 45.9 % (20-40); Mean Corpuscular HGB Conc 32.4 g/dl (31.0-35.0); Mean Corpuscular Hemoglobin 33.3 pg (27.0-33.0); Mean Corpuscular Volume 102.5 fL (80.0-98.0); Mean Platelet Volume 9.5 fL (9.4-12.3); Monocytes Absolute Auto 0.4 X10*3/uL (0.1-1.2); Monocytes Percent Auto 6.9 % (2-11); Neutrophils Absolute Auto 2.7 x10*3/uL (2.0-8.3); Neutrophils Percent Auto 45.2 % (45-73); Platelet Count 267 X10*3/uL (160-400); Red Blood Count 4.36 X10*6/uL (4.20-5.50); Red Cell Distribution Width 12.5 % (11.0-16.0)
[2023-07-11 08:37] LABS: Estimated Average Glucose 114 mg/dL; Hemoglobin A1c % 5.6 % (<6.0)
[2023-07-11 09:10] LABS: Alanine Aminotransferase 16 U/L (0-31); Albumin Level 4.3 g/dL (3.5-5.0); Alkaline Phosphatase 97 U/L (39-117); Anion Gap 11 (12-20); Aspartate Amino Transferase 26 U/L (5-31); Bilirubin Total 0.4 mg/dL (0.0-1.0); Blood Urea Nitrogen 16 mg/dL (9-16); Calcium 9.6 mg/dL (8.4-10.2); Carbon Dioxide 29 mmol/L (22-29); Chloride 108 mmol/L (96-108); Cholesterol 158 mg/dL (<200); Estimated Glomerular Filt Rate > 60; Glucose Fasting 110 mg/dL (60-99); HDL Cholesterol 48 mg/dL (>40); LDL Cholesterol Calculated 90 mg/dL (<100); Potassium 4.2 mmol/L (3.3-5.1); Sodium 144 mmol/L (135-145); Total Protein 7.2 g/dL (6.5-8.0); Triglycerides 104 mg/dL (<150)
[2023-07-11 09:28] LABS: TSH reflex Free T4 1.35 uIU/mL (0.32-4.0); Vitamin D 25-OH Total 87.5 ng/mL (>30)
[2023-07-11 10:04] LABS: Appearance Urine Clear; Color Urine Yellow; Glucose Urine UA Negative (Negative); Leukocyte Esterase Urine Trace (Negative); Nitrite Urine Negative (Negative); UMIC TRIGGER UACC YES; Urine Blood Moderate (2+) (Negative); Urine Ketones Negative (Negative); Urine Protein 30 (1+) mg/dL (Neg-Trace)
[2023-07-11 10:09] LABS: Bacteria Urine None Seen (None Seen); Hyaline Casts Urine 0-2 /LPF (0-2); RBC Urine >20 /HPF (0-2); Squamous Epithelial Cell Urine 0-2 /HPF (0-2); WBC Urine 0-5 /HPF (0-5)
== END 2023-07-11 07:45 | disposition home or self-care (01) ==
LOC: HO.LAB 07:44
PROVIDERS: PCP Internal Medicine; Visit Provider Internal Medicine
DX: R73.01 Impaired fasting glucose (principal); E78.00 Pure hypercholesterolemia, unspecified; E55.9 Vitamin D deficiency, unspecified; I10 Essential (primary) hypertension
CPT/HCPCS: 36415; 80053; 80061; 81001; 82306; 83036; 84443; 85025

== ENCOUNTER 2023-07-15 09:38 | Outpatient (AMB) | payer BC, SELFPAY ==
--- NOTE | 2023-07-15 09:54 | MHC.PC.OV ---
Vital Signs 07/15/23 09:56 Height 4 ft 11 in Weight 93 lb BMI 18.8 BP 100/60 Blood Pressure Location Lt brachial Position Sitting Pulse 90 Pulse Source Pulse Oximeter Pulse Oximetry (%) 95 Oxygen Delivery Method Room Air Intake Visit Reasons: 4M follow up Intake Note: Patient is here to follow up on COPD, RLS . Exhaust Equipment Operator Required: No Carrier Washer: Not Required per policy Accompanied by: Self / Same As Patient Allergies aspirin [Aspirin] Allergy (Unknown, Verified 07/15/23 10:30) RASH diphenhydramine [From Benadryl] Allergy (Unknown, Verified 07/15/23 10:30) Unknown iron [Iron] Allergy (Unknown, Verified 07/15/23 10:30) VAGINAL INFECTION menthol [From Antihistamine] Allergy (Unknown, Verified 07/15/23 10:30) DIFF BREATHING penicillin V Allergy (Unknown, Verified 07/15/23 10:30) hives Penicillins Allergy (Unknown, Verified 07/15/23 10:30) Hives Sulfa (Sulfonamide Antibiotics) Allergy (Unknown, Verified 07/15/23 10:30) RASH ciprofloxacin Adverse Reaction (Severe, Verified 07/15/23 10:30) Headache Medication List - Last Reconciled 07/15/23 by Jason Bansal MD acetaminophen (Tylenol) 650 mg (2 x 325 mg) PO Q6H PRN albuterol sulfate 2.5 mg (3 mL) inhalation Q6H PRN 30 days betamethasone dipropionate 0.05% 1 appl topical BID PRN cholecalciferol (vitamin D3) 50 mcg PO DAILY citalopram 10 mg PO DAILY meclizine 25 mg PO DAILY PRN mometasone 0.1% 1 appl topical DAILY PRN ropinirole 0.5 mg PO BEDTIME simvastatin 10 mg PO DAILY 90 days tiotropium-olodaterol 2.5-2.5 mcg/actuation (Stiolto Respimat) 2 puffs inhalation DAILY 90 days trazodone 50 mg PO BEDTIME PRN 30 days Tobacco use date assessed: 07/15/23 Fall risk assessment: No Falls in past year Last assessed Fall Risk: 07/15/23 Dental Screening Dental Screen Date: 07/15/23 Did you have a dental visit in the last 12 months?: Yes Did you have a dental problem in the last 6 months where you did not have access to dental care?: No Was dental information given to patient?: Patient has dentist HPI 4M follow up HPI Details Patient comes in today for her follow up visit States that she feels okay She denies any headaches or dizziness Denies any chest pains; states that she has some SOB with exertion, including when she is climbing up stairs No nausea/vomiting, no abdominal pain No change in bowel habits noted Adds that she has been experiencing increased pain on and off lately on her left palm - notes that the pain is mostly over the tendons just proximal to her fingers She denies any recent injury or trauma to her hand although she notes that she often holds her cell phone with her left hand and is wondering if this is contributing to her recent symptoms Had her follow up labs done a few days ago - to discuss her results [facility] Medical History Insomnia Hemoptysis Osteoporosis Smoker Major depression, recurrent Anxiety Lumbar degenerative disc disease Vitamin D deficiency Pure hypercholesterolemia COPD (chronic obstructive pulmonary disease) Restless legs syndrome (RLS) Vertigo Surgical History History of colonoscopy (~12/1999) History of breast surgery Family History Father Wvqqj-Fqbwx-Aeamy syndrome Mother Hypertension Paternal Aunt Mfcal-Ceitn-Ppyqy syndrome Social History Housing: House Alcohol intake: never Patient Tobacco Use Status: Current everyday Tobacco user Tobacco use type: Cigarette Cigarette Packs Per Day: 0.5 Cigarettes Per Day: 7 e-Cigarette/Vaping Use: Never Used Second Hand Smoke Exposure: Yes service: No Current occupational status: retired Cognitive needs: No Hearing needs: No Vision needs: Yes Questionnaire PHQ-9 Over the last 2 weeks, how often have you been bothered by any of the following problems? 1. Little interest or pleasure in doing things: not at all 2. Feeling down, depressed, or hopeless: not at all 3. Trouble falling or staying asleep, or sleeping too much: not at all 4. Feeling tired or having little energy: not at all 5. Poor appetite or overeating: not at all 6. Feeling bad about yourself - or that you are a failure or have let yourself or your family down: not at all 7. Trouble concentrating on things, such as reading the newspaper or watching television: not at all 8. Moving or speaking so slowly that other people could have noticed. Or the opposite - being so fidgety or restless that you have been moving around a lot more than usual: not at all 9. Thoughts that you would be better off or of hurting yourself in some way: not at all Total score: 0 Depression Screening Interpretation: Negative Depression Screening Done: Yes 46112 - PHQ-9 Billing: Yes Source: Developed by Drs. Elio Valenzuela, Tammy Rosenberg, Jerzy Nicholson and colleagues, with an educational herminio from [employer]. Thrive Questionnaire Date Thrive assessed: 07/15/23 I am a: Patient What is your living situation today?: I have a steady place to live Within the past 12 months, did the food you bought not last and you didn't have the money to get more?: Never true Within the past 12 months, did you worry whether your food would run out before you got money to buy more?: Never true Do you have trouble paying for medicines?: No Do you have trouble getting transportation to medical appointments?: No Do you have trouble paying your heating and electricity bill?: No Do you have trouble taking care of your child, family member or friend?: No Do you have trouble with day-to-day activities such as bathing, preparing meals, shopping, managing finances, etc.?: No Are you currently unemployed and looking for a job?: No Are you interested in more education?: No Currently or been in a relationship where the following occur: no concerns reported THRIVE Score: 0 AUDIT C Alcohol Use Questionnaire (AUDIT-C) 1. How often do you have a drink containing alcohol?: Never 3. How often do you have six or more drinks on one occasion?: Never Total Score: 0 Score Reviewed/Action Taken: Yes KAMI-7 AMB Questionnaire KAMI-7 Date KAMI - 7 assessed: 07/15/23 Feeling nervous, anxious, or on edge: 0 = Not at all Not being able to stop or control worryin = Not at all Worrying too much about different things: 0 = Not at all Trouble relaxin = Not at all Being so restless that it is hard to sit still: 0 = Not at all Becoming easily annoyed or irritable: 0 = Not at all Feeling afraid as if something awful might happen: 0 = Not at all Total KAMI-7 score (0-4 normal; 5-9 mild; 10-14 moderate; 15-21 severe): 0 Source: Developed by Drs. Elio Valenzuela, Tammy Rosenberg, Jerzy Nicholson and colleagues, with an educational herminio from [employer]. Review of Systems Const Denies chills, Reports difficulty sleeping, Reports fatigue, Denies fever(s) and Denies headache(s) ENT Denies dysphagia, Denies dizziness, Denies otalgia, Denies headache(s), Denies neck pain, Denies odynophagia and Denies sore throat Card Denies chest pain, Denies palpitations and Reports dyspnea on exertion (mild) Resp Reports chest congestion (chest feels tight at times), Reports cough (on and off), Denies hemoptysis, Denies pain with cough, Reports dyspnea on exertion (mild) and Denies wheezing GI Denies abdominal pain, Denies constipation, Denies dysphagia, Denies heartburn, Denies diarrhea, Denies nausea, Denies odynophagia and Denies vomiting Denies difficulty voiding, Denies nocturia, Denies dysuria and Denies urinary urgency Musc Reports back pain (on and off over the lower back), Reports arthralgias (right shoulder; on the left hand recently - see HPI) and Denies neck pain Skin/Breast Denies rash Neuro Denies dizziness and Denies headache(s) Endo Reports fatigue and Denies palpitations Aller/Immun Denies wheezing Physical exam (Primary Care) Vital Signs: Last Vital Signs Pulse 90 07/15/23 09:56 BP 100/60 07/15/23 09:56 Pulse Ox 95 07/15/23 09:56 Oxygen Delivery Method Room Air 07/15/23 09:56 BMI result Body Mass Index 18.8 Tobacco/Smoking Status: Tobacco use Status Tobacco use date assessed 07/15/23 07/15/23 10:04 Patient Tobacco Use Status Current everyday Tobacco 07/15/23 10:04 Tobacco use type Cigarette 07/15/23 10:04 e-Cigarette/Vaping Use Never Used 07/15/23 10:04 PHQ-9: PHQ-9 Score PHQ-9: Total score 0 07/15/23 10:04 Depression Screening Interpretation: Negative Thrive Assessment: Date of Thrive Assessment Date Thrive assessed 07/15/23 07/15/23 10:04 Currently or been in a relationship where the following occur: no concerns reported Const General: no acute distress and alert HENMT Ears: TM's normal bilaterally and EAC's normal Throat: Yes posterior oropharynx normal and Yes tonsils normal (no TP congestion) Neck Neck: Yes no lymphadenopathy and Yes supple Thyroid: Thyroid normal Resp Auscultation: no rales, rhonchi (scattered) throughout, no wheezes and diminished lung sounds (slightly) bilateral Cardio Rate: regular rate Rhythm: regular rhythm Heart sounds: no murmurs GI Palpation (GI): Soft to palpation and nontender Auscultation: normal bowel sounds General: Yes no CVA tenderness Back/Spine/Pelvis Back: no CVA tenderness Thoracic/Lumbar Spine: lumbar spinal tenderness (mild) Skin Rashes: no rashes Extrem General: Yes no clubbing, cyanosis or edema Right upper extremity: shoulder/upper arm Details: tenderness Location: of the A-C joint Left upper extremity: hand Details: tenderness Location: of the palm (mostly over the tendons on the palmar aspect of the hand proximally) Results Reviewed Results Reviewed: Laboratory Tests 07/11/23 07/11/23 08:05 08:06 WBC 6.0 Hgb 14.5 Hct 44.7 Plt Count 267 Sodium 144 Potassium 4.2 Creatinine 0.69 Estimated GFR > 60 Fasting Glucose 110 H Hemoglobin A1c % 5.6 Calcium 9.6 AST 26 ALT 16 Triglycerides 104 Cholesterol 158 LDL Cholesterol, Calc 90 HDL Cholesterol 48 25-OH Vitamin D Total 87.5 TSH 1.35 Ur Specific [place] 1.020 Urine Protein 30 (1+) H Urine Glucose (UA) Negative Urine Blood Moderate (2+) H Urine Nitrite Negative Ur Leukocyte Esterase Trace H Assessment and Plan Assessment & Plan (1) Pure hypercholesterolemia: Code(s): E78.00 - Pure hypercholesterolemia, unspecified Plan: Results of her labs done a few days ago reviewed and discussed with patient Reinforced low cholesterol diet Continue Simvastatin 10 mg Q HS Will recheck her labs and fasting lipids in 4 months for follow up (2) COPD (chronic obstructive pulmonary disease): Code(s): J44.9 - Chronic obstructive pulmonary disease, unspecified Qualifiers: COPD type: unspecified COPD Qualified Code(s): J44.9 - Chronic obstructive pulmonary disease, unspecified Plan: Currently appears stable/controlled Continue Stiolto Respimat 2.5-2.5 mcg 2 inhalations QD and Albuterol HFA 1 to 2 inhalations Q 6 hours PRN She is instructed to call at any time if she feels progressively SOB despite her current Rx Follow up with pulmonary as scheduled (3) Pulmonary nodules: Code(s): R91.8 - Other nonspecific abnormal finding of lung field Plan: Stable on most recent chest CT in January 2023; will have repeat chest CT done in 1 year (January 2024) Follow up with pulmonary as scheduled (4) Vitamin D deficiency: Code(s): E55.9 - Vitamin D deficiency, unspecified Plan: Continue Vitamin D3 2000 units 1 capsule every other day (5) Lumbar degenerative disc disease: Code(s): M51.36 - Other intervertebral disc degeneration, lumbar region Plan: Reinforced activity and weight-lifting restrictions to avoid aggravating her low back pain Continue Tizanidine 4 mg TID PRN (6) Arthritis of right shoulder region: Code(s): M19.011 - Primary osteoarthritis, right shoulder Plan: X-rays of the right shoulder done last year revealed (+) AC arthritis changes She is instructed to continue with the shoulder exercises that she was previously instructed on to help manage her shoulder symptoms Have advised patient again of the option of physical therapy referral if needed; patient has to pay out a large co-pay every time she goes to physical therapy and she would like to hold off on doing this for now unless it is absolutely necessary Can also consider referral to orthopedics if her shoulder pain progresses or gets worse (7) Osteoporosis: Code(s): M81.0 - Age-related osteoporosis without current pathological fracture Qualifiers: Osteoporosis type: age-related Presence of current pathological fracture: without current pathological fracture Qualified Code(s): M81.0 - Age-related osteoporosis without current pathological fracture Plan: Repeat BMD done in July 2021 revealed (+) further decline in her BMD from previous (-10.7% decline in the lumbar spine and a -17% decline in the femur) - lowest T-score value is now at -4.4 BMD done back on 06/29/2017 showed (+) osteoporosis with lowest T score of -3.7, with a 6.2% decrease from previous BMD in AP spine and 17.3% decrease from previous BMD in the left femur Fall precautions reinforced but encouraged again to continue to stay active and exercise regularly Continue Vitamin D and Calcium supplements daily and will consider repeat BMD for follow up later this year Discussed again need to consider referral to endocrinology for further management and Rx - patient would like to still hold off on this for now (8) Recurrent vertigo: Code(s): R42 - Dizziness and giddiness Plan: States that she has been able to keep the symptoms from recurring by not sleeping on her left side and this has not really bothered her too much lately Has been seen by ENT and so far, has reportedly been told that they cannot find anything else wrong with her and have suggested trial of canalith positioning if symptoms continue to recur (9) Restless legs syndrome (RLS): Code(s): G25.81 - Restless legs syndrome Plan: Continue Ropinirole 0.5 mg Q HS (10) Left hand pain: Code(s): M79.642 - Pain in left hand Plan: She is advised that her left hand pain is mostly over the palmar fascia that leads into the fingers and that she may be starting to experience the beginning symptoms of Duputren's contracture, which unfirtunately has no cure but there are procedures that can be done to alleviate her symptoms if it gets worse Have advised her to call at any time if she feels her symptoms are getting worse and we can then refer her to orthopedics then (11) Insomnia: Code(s): G47.00 - Insomnia, unspecified Qualifiers: Insomnia type: unspecified Qualified Code(s): G47.00 - Insomnia, unspecified Plan: Sleep hygiene reinforced She was started her on a trial of Trazodone 50 mg Q HS PRN previously but she has not started on this yet due to concerns about potential side effects and dependence Have reassured her that Trazodone is NOT habit-forming and she can just take the Rx on a PRN basis States that she has the Rx at home and will now try it to help her get some sleep (12) Anxiety: Code(s): F41.9 - Anxiety disorder, unspecified Plan: Controlled on her current Rx (Citalopram) (13) Major depression, recurrent: Code(s): F33.9 - Major depressive disorder, recurrent, unspecified Qualifiers: Active/Remission status: currently active Major depression episode severity: unspecified Qualified Code(s): F33.9 - Major depressive disorder, recurrent, unspecified Plan: Continue Citalopram 10 mg QD (14) Smoker: Code(s): F17.200 - Nicotine dependence, unspecified, uncomplicated Plan: Counseled again on smoking cessation Plan Follow up in 4 months Coding Level of Care Code Est Pt Level 4 (04851) Diagnoses Pure hypercholesterolemia E78.00 Chronic obstructive pulmonary disease, unspecified COPD type J44.9 COPD type: unspecified COPD Pulmonary nodules R91.8 Vitamin D deficiency E55.9 Lumbar degenerative disc disease M51.36 Arthritis of right shoulder region M19.011 Age-related osteoporosis without current pathological fracture M81.0 Osteoporosis type: age-related Presence of current pathological fracture: without current pathological fracture Recurrent vertigo R42 Restless legs syndrome (RLS) G25.81 Left hand pain M79.642 Insomnia, unspecified type G47.00 Insomnia type: unspecified Anxiety F41.9 Episode of recurrent major depressive disorder, unspecified depression episode severity F33.9 Active/Remission status: currently active Major depression episode severity: unspecified Smoker F17.200
[2023-07-15 09:56] VITALS: BP 100/60; PULSE 90; O2SAT 95; BMI 18.8
== END 2023-07-15 12:02 | disposition home or self-care (01) ==
PROVIDERS: PCP Internal Medicine; Visit Provider Internal Medicine
DX: E78.00 Pure hypercholesterolemia, unspecified (principal); J44.9 Chronic obstructive pulmonary disease, unspecified; F33.9 Major depressive disorder, recurrent, unspecified; R91.8 Other nonspecific abnormal finding of lung field; E55.9 Vitamin D deficiency, unspecified; M51.36 Other intervertebral disc degeneration, lumbar region; M19.011 Primary osteoarthritis, right shoulder; M81.0 Age-related osteoporosis without current pathological fracture; R42 Dizziness and giddiness; G25.81 Restless legs syndrome; M79.642 Pain in left hand; G47.00 Insomnia, unspecified
CPT/HCPCS: 99214

== ENCOUNTER 2023-11-29 07:07 | Outpatient (REF) | payer BC, SELFPAY ==
[2023-11-29 07:18] LABS: MANUAL DIFF FLAG NO
[2023-11-29 07:41] LABS: Basophils Percent Auto 0.6 % (0-2); Eosinophils Absolute Auto 0.1 X10*3/uL (0.0-0.4); Eosinophils Percent Auto 1.6 % (0-4); Hematocrit 45.8 % (37.0-47.0); Hemoglobin 14.8 g/dl (12.0-16.0); Imm Gran Abs Auto 0.01 X10*3/uL (0.00-0.03); Imm Gran Pct Auto 0.1 % (0.0-0.4); Lymphocytes Absolute Auto 3.6 X10*3/uL (1.2-4.9); Lymphocytes Percent Auto 52.6 % (20-40); Mean Corpuscular HGB Conc 32.3 g/dl (31.0-35.0); Mean Corpuscular Volume 102.2 fL (80.0-98.0); Mean Platelet Volume 9.5 fL (9.4-12.3); Monocytes Absolute Auto 0.4 X10*3/uL (0.1-1.2); Monocytes Percent Auto 6.4 % (2-11); Neutrophils Absolute Auto 2.7 x10*3/uL (2.0-8.3); Neutrophils Percent Auto 38.7 % (45-73); Platelet Count 249 X10*3/uL (160-400); Red Blood Count 4.48 X10*6/uL (4.20-5.50); Red Cell Distribution Width 12.4 % (11.0-16.0); White Blood Count 6.9 X10*3/uL (4.8-10.8)
[2023-11-29 07:57] LABS: Estimated Average Glucose 111 mg/dL; Hemoglobin A1c % 5.5 % (<6.0)
[2023-11-29 08:31] LABS: Alanine Aminotransferase 21 U/L (0-31); Albumin Level 4.4 g/dL (3.5-5.0); Alkaline Phosphatase 88 U/L (39-117); Anion Gap 16 (12-20); Aspartate Amino Transferase 27 U/L (5-31); Bilirubin Total 0.4 mg/dL (0.0-1.0); Blood Urea Nitrogen 15 mg/dL (9-16); Calcium 9.7 mg/dL (8.4-10.2); Carbon Dioxide 28 mmol/L (22-29); Chloride 106 mmol/L (96-108); Cholesterol 152 mg/dL (<200); Estimated Glomerular Filt Rate > 60; Glucose Fasting 123 mg/dL (60-99); HDL Cholesterol 43 mg/dL (>40); LDL Cholesterol Calculated 87 mg/dL (<100); Potassium 4.5 mmol/L (3.3-5.1); Sodium 145 mmol/L (135-145); Triglycerides 112 mg/dL (<150)
[2023-11-29 08:40] LABS: Appearance Urine Clear; Color Urine Yellow; Glucose Urine UA Negative (Negative); Leukocyte Esterase Urine Small (1+) (Negative); Nitrite Urine Negative (Negative); UMIC TRIGGER UACC YES; Urine Blood Large (3+) (Negative); Urine Ketones Negative (Negative); Urine Protein Trace mg/dL (Neg-Trace)
[2023-11-29 08:48] LABS: Vitamin D 25-OH Total 85.4 ng/mL (>30)
[2023-11-29 08:53] LABS: Bacteria Urine None Seen (None Seen); Hyaline Casts Urine 0-2 /LPF (0-2); RBC Urine >20 /HPF (0-2); Squamous Epithelial Cell Urine 0-2 /HPF (0-2); UACC Culture Trigger YES; WBC Urine 0-5 /HPF (0-5)
== END 2023-11-29 07:08 | disposition home or self-care (01) ==
LOC: HO.LAB 07:07
PROVIDERS: PCP Internal Medicine; Visit Provider Internal Medicine
DX: D64.9 Anemia, unspecified (principal); E78.00 Pure hypercholesterolemia, unspecified; E55.9 Vitamin D deficiency, unspecified; R73.01 Impaired fasting glucose; R30.0 Dysuria
CPT/HCPCS: 36415; 80053; 80061; 81001; 82306; 83036; 84443; 85025; 87086

== ENCOUNTER 2023-12-03 10:27 | Outpatient (AMB) | payer BC, SELFPAY ==
[2023-12-03 10:32] VITALS: BP 100/78; PULSE 87; O2SAT 95; BMI 18.3
--- NOTE | 2023-12-03 10:32 | A.OFFPC_ITS ---
Vital Signs 12/03/23 10:32 Height 4 ft 11 in Weight 90 lb 8 oz BMI 18.3 BP 100/78 Blood Pressure Location Lt brachial Position Sitting Pulse 87 Pulse Source Pulse Oximeter Pulse Oximetry (%) 95 Oxygen Delivery Method Room Air Intake Visit Reasons: hyperlipidemia, COPD, RLS, insomnia, OA Biology Research Assistant Required: No Accompanied by: Self / Same As Patient Allergies aspirin [Aspirin] Allergy (Unknown, Verified 12/03/23 11:12) RASH diphenhydramine [From Benadryl] Allergy (Unknown, Verified 12/03/23 11:12) Unknown iron [Iron] Allergy (Unknown, Verified 12/03/23 11:12) VAGINAL INFECTION menthol [From Antihistamine] Allergy (Unknown, Verified 12/03/23 11:12) DIFF BREATHING penicillin V Allergy (Unknown, Verified 12/03/23 11:12) hives Penicillins Allergy (Unknown, Verified 12/03/23 11:12) Hives Sulfa (Sulfonamide Antibiotics) Allergy (Unknown, Verified 12/03/23 11:12) RASH ciprofloxacin Adverse Reaction (Severe, Verified 12/03/23 11:12) Headache Medication List - Last Reconciled 12/03/23 by Jason Bansal MD acetaminophen (Tylenol) 650 mg (2 x 325 mg) PO Q6H PRN albuterol sulfate 2.5 mg (3 mL) inhalation Q6H PRN 30 days betamethasone dipropionate 0.05% 1 appl topical BID PRN cholecalciferol (vitamin D3) 50 mcg PO DAILY citalopram 10 mg PO DAILY meclizine 25 mg PO DAILY PRN mometasone 0.1% 1 appl topical DAILY PRN ropinirole 0.5 mg PO BEDTIME simvastatin 10 mg PO DAILY 90 days tiotropium-olodaterol 2.5-2.5 mcg/actuation (Stiolto Respimat) 2 puffs inhalation DAILY 90 days trazodone 50 mg PO BEDTIME PRN 30 days Tobacco use date assessed: 12/03/23 Fall risk assessment: No Falls in past year Last assessed Fall Risk: 12/03/23 Dental Screening Dental Screen Date: 12/03/23 Did you have a dental visit in the last 12 months?: No Did you have a dental problem in the last 6 months where you did not have access to dental care?: No Was dental information given to patient?: No HPI hyperlipidemia, COPD, RLS, insomnia, OA HPI Details Patient comes in today for her follow up visit States that she has been experiencing recurrent COPD exacerbations lately although her more recent flare ups have been mostly mild States that she has been using her Stiolto Respimat inhaler daily/regularly as prescribed Relates that she has a follow up appointment with pulmonary (Dr. Thomas) in a couple of weeks on 12/18/2023 States that she feels okay otherwise She denies any headaches or dizziness Denies any chest pains No nausea/vomiting, no abdominal pain No change in bowel habits noted Needs refill on her Ropinirole, Citalopram and Simvastatin Rx She had her follow up labs done a few days ago - to discuss her results [facility] Medical History Insomnia Hemoptysis Osteoporosis Smoker Major depression, recurrent Anxiety Lumbar degenerative disc disease Vitamin D deficiency Pure hypercholesterolemia COPD (chronic obstructive pulmonary disease) Restless legs syndrome (RLS) Vertigo Surgical History History of colonoscopy (~12/1999) History of breast surgery Family History Father Adngg-Kfcev-Fwiqy syndrome Mother Hypertension Paternal Aunt Cjndp-Ospwl-Biqwz syndrome Social History Housing: House Alcohol intake: never Patient Tobacco Use Status: Current everyday Tobacco user Tobacco use type: Cigarette Cigarette Packs Per Day: 0.5 Cigarettes Per Day: 7 e-Cigarette/Vaping Use: Never Used Second Hand Smoke Exposure: Yes service: No Current occupational status: retired Cognitive needs: No Hearing needs: No Vision needs: Yes Questionnaire PHQ-9 Over the last 2 weeks, how often have you been bothered by any of the following problems? 1. Little interest or pleasure in doing things: not at all 2. Feeling down, depressed, or hopeless: not at all 3. Trouble falling or staying asleep, or sleeping too much: not at all 4. Feeling tired or having little energy: not at all 5. Poor appetite or overeating: not at all 6. Feeling bad about yourself - or that you are a failure or have let yourself or your family down: not at all 7. Trouble concentrating on things, such as reading the newspaper or watching television: not at all 8. Moving or speaking so slowly that other people could have noticed. Or the opposite - being so fidgety or restless that you have been moving around a lot more than usual: not at all 9. Thoughts that you would be better off or of hurting yourself in some way: not at all Total score: 0 Depression Screening Interpretation: Negative Depression Screening Done: Yes 11850 - PHQ-9 Billing: Yes Source: Developed by Drs. Elio Valenzuela, Tammy Rosenberg, Jerzy Nicholson and colleagues, with an educational herminio from [employer]. Thrive Questionnaire Date Thrive assessed: 12/03/23 I am a: Patient What is your living situation today?: I have a steady place to live Within the past 12 months, did the food you bought not last and you didn't have the money to get more?: Never true Within the past 12 months, did you worry whether your food would run out before you got money to buy more?: Never true Do you have trouble paying for medicines?: No Do you have trouble getting transportation to medical appointments?: No Do you have trouble paying your heating and electricity bill?: No Do you have trouble taking care of your child, family member or friend?: No Do you have trouble with day-to-day activities such as bathing, preparing meals, shopping, managing finances, etc.?: No Are you currently unemployed and looking for a job?: No Are you interested in more education?: No Please select the resources that you would like help with: None Currently or been in a relationship where the following occur: No concerns reported THRIVE Score: 0 AUDIT C Alcohol Use Questionnaire (AUDIT-C) 1. How often do you have a drink containing alcohol?: Never 3. How often do you have six or more drinks on one occasion?: Never Total Score: 0 Score Reviewed/Action Taken: Yes KAMI-7 AMB Questionnaire KAMI-7 Date KAMI - 7 assessed: 12/03/23 Feeling nervous, anxious, or on edge: 0 = Not at all Not being able to stop or control worryin = Not at all Worrying too much about different things: 0 = Not at all Trouble relaxin = Not at all Being so restless that it is hard to sit still: 0 = Not at all Becoming easily annoyed or irritable: 0 = Not at all Feeling afraid as if something awful might happen: 0 = Not at all Total KAMI-7 score (0-4 normal; 5-9 mild; 10-14 moderate; 15-21 severe): 0 Source: Developed by Drs. Elio Valenzuela, Tammy Rosenberg, Jerzy Nicholson and colleagues, with an educational herminio from [employer]. Review of Systems Const Denies chills, Reports difficulty sleeping, Reports fatigue, Denies fever(s) and Denies headache(s) ENT Denies dysphagia, Denies dizziness, Denies otalgia, Denies headache(s), Denies neck pain, Denies odynophagia and Denies sore throat Card Denies chest pain, Denies palpitations and Reports dyspnea on exertion (mild) Resp Reports chest congestion (chest feels tight at times), Reports cough (on and off), Denies hemoptysis, Denies pain with cough, Reports dyspnea on exertion (mild) and Denies wheezing GI Denies abdominal pain, Denies constipation, Denies dysphagia, Denies heartburn, Denies diarrhea, Denies nausea, Denies odynophagia and Denies vomiting Denies difficulty voiding, Denies nocturia, Denies dysuria and Denies urinary urgency Musc Reports back pain (on and off over the lower back), Reports arthralgias (right shoulder; on the left hand recently - see HPI) and Denies neck pain Skin/Breast Denies rash Neuro Denies dizziness and Denies headache(s) Endo Reports fatigue and Denies palpitations Aller/Immun Denies wheezing Physical exam (Primary Care) Vital Signs: Last Vital Signs Pulse 87 12/03/23 10:32 BP 100/78 12/03/23 10:32 Pulse Ox 95 12/03/23 10:32 Oxygen Delivery Method Room Air 12/03/23 10:32 BMI result Body Mass Index 18.3 Tobacco/Smoking Status: Tobacco use Status Tobacco use date assessed 12/03/23 12/03/23 10:39 Patient Tobacco Use Status Current everyday Tobacco 12/03/23 10:39 Tobacco use type Cigarette 12/03/23 10:39 e-Cigarette/Vaping Use Never Used 12/03/23 10:39 PHQ-9: PHQ-9 Score PHQ-9: Total score 0 12/03/23 10:39 Depression Screening Interpretation: Negative Thrive Assessment: Date of Thrive Assessment Date Thrive assessed 12/03/23 12/03/23 10:39 Currently or been in a relationship where the following occur: No concerns reported Const General: no acute distress and alert HENMT Ears: TM's normal bilaterally and EAC's normal Throat: Yes posterior oropharynx normal and Yes tonsils normal (no TP congestion) Neck Neck: Yes no lymphadenopathy and Yes supple Thyroid: Thyroid normal Resp Auscultation: no rales, rhonchi (scattered) throughout, no wheezes and diminished lung sounds (slightly) bilateral Cardio Rate: regular rate Rhythm: regular rhythm Heart sounds: no murmurs GI Palpation (GI): Soft to palpation and nontender Auscultation: normal bowel sounds General: Yes no CVA tenderness Back/Spine/Pelvis Back: no CVA tenderness Thoracic/Lumbar Spine: lumbar spinal tenderness (mild) Skin Rashes: no rashes Extrem General: Yes no clubbing, cyanosis or edema Right upper extremity: shoulder/upper arm Details: tenderness Location: of the A-C joint Left upper extremity: hand Details: tenderness Location: of the palm (mostly over the tendons on the palmar aspect of the hand proximally) Results Reviewed Results Reviewed: Laboratory Tests 11/29/23 11/29/23 07:16 07:17 WBC 6.9 Hgb 14.8 Hct 45.8 Plt Count 249 Sodium 145 Potassium 4.5 Creatinine 0.75 Estimated GFR > 60 Fasting Glucose 123 H Hemoglobin A1c % 5.5 Calcium 9.7 AST 27 ALT 21 Triglycerides 112 Cholesterol 152 LDL Cholesterol, Calc 87 HDL Cholesterol 43 25-OH Vitamin D Total 85.4 TSH 1.70 Ur Specific [place] 1.020 Urine Protein Trace Urine Glucose (UA) Negative Urine Blood Large (3+) H Urine Nitrite Negative Ur Leukocyte Esterase Small (1+) H Assessment and Plan Assessment & Plan (1) Pure hypercholesterolemia: Code(s): E78.00 - Pure hypercholesterolemia, unspecified Plan: Results of her labs done a few days ago reviewed and discussed with patient Reinforced low cholesterol diet Continue Simvastatin 10 mg Q HS Will recheck her labs and fasting lipids in 4 months for follow up (2) COPD (chronic obstructive pulmonary disease): Code(s): J44.9 - Chronic obstructive pulmonary disease, unspecified Qualifiers: COPD type: unspecified COPD Qualified Code(s): J44.9 - Chronic obstructive pulmonary disease, unspecified Plan: Patient states that she has been experiencing recurrent but mild flare ups of her COPD and respiratory symptoms in a while now and is not sure if her meds need to be changed or adjusted or not Continue Stiolto Respimat 2.5-2.5 mcg 2 inhalations QD and Albuterol HFA 1 to 2 inhalations Q 6 hours PRN for now Have advised that as she is scheduled to be seen by pulmonary in a couple of weeks, I would prefer to leave it up to Dr. Thomas to decide how to best go about adjusting or changing her meds/inhalers Follow up with pulmonary as scheduled (3) Pulmonary nodules: Code(s): R91.8 - Other nonspecific abnormal finding of lung field Plan: Stable on most recent chest CT in January 2023; will have repeat chest CT done sometime in January 2024 (1 year follow up) Follow up with pulmonary as scheduled (4) Vitamin D deficiency: Code(s): E55.9 - Vitamin D deficiency, unspecified Plan: Continue Vitamin D3 2000 units 1 capsule every other day (5) Lumbar degenerative disc disease: Code(s): M51.36 - Other intervertebral disc degeneration, lumbar region Plan: Reinforced activity and weight-lifting restrictions to avoid aggravating her low back pain Continue Tizanidine 4 mg TID PRN (6) Arthritis of right shoulder region: Code(s): M19.011 - Primary osteoarthritis, right shoulder Plan: X-rays of the right shoulder done last year revealed (+) AC arthritis changes She is instructed to continue with the shoulder exercises that she was previously instructed on to help manage her shoulder symptoms Have advised patient again of the option of physical therapy referral if needed; patient has to pay out a large co-pay every time she goes to physical therapy and she would like to hold off on doing this for now unless it is absolutely necessary Can also consider referral to orthopedics if her shoulder pain progresses or gets worse (7) Osteoporosis: Code(s): M81.0 - Age-related osteoporosis without current pathological fracture Qualifiers: Osteoporosis type: age-related Presence of current pathological fracture: without current pathological fracture Qualified Code(s): M81.0 - Age- related osteoporosis without current pathological fracture Plan: Repeat BMD done in July 2021 revealed (+) further decline in her BMD from previous (-10.7% decline in the lumbar spine and a -17% decline in the femur) - lowest T-score value is now at -4.4 BMD done back on 06/29/2017 showed (+) osteoporosis with lowest T score of -3.7, with a 6.2% decrease from previous BMD in AP spine and 17.3% decrease from previous BMD in the left femur Fall precautions reinforced but encouraged again to continue to stay active and exercise regularly Continue Vitamin D and Calcium supplements daily and will consider repeat BMD for follow up early next year Discussed again need to consider referral to endocrinology for further management and Rx - patient would like to still hold off on this for now as she states that her is retiring soon and she will be changing her health insurance as a result (8) Restless legs syndrome (RLS): Code(s): G25.81 - Restless legs syndrome Plan: Continue Ropinirole 0.5 mg Q HS (9) Left hand pain: Code(s): M79.642 - Pain in left hand Plan: She is advised that her left hand pain is mostly over the palmar fascia that leads into the fingers and that she may be starting to experience the beginning symptoms of Duputren's contracture, which unfortunately has no cure although there are procedures that can be done to alleviate her symptoms if it gets worse Have advised her to call at any time if she feels her symptoms are getting worse and we can refer her to orthopedics then (10) Recurrent vertigo: Code(s): R42 - Dizziness and giddiness Plan: States that she has been able to keep the symptoms from recurring by not sleeping on her left side and this has not really bothered her too much lately She has been seen by ENT for this and so far, has reportedly been told that they cannot find anything else wrong with her and have suggested trial of canalith positioning if her symptoms continue to recur (11) Insomnia: Code(s): G47.00 - Insomnia, unspecified Qualifiers: Insomnia type: unspecified Qualified Code(s): G47.00 - Insomnia, unspecified Plan: Sleep hygiene reinforced She was started on a trial of Trazodone 50 mg Q HS PRN previously but she did not take this due to concerns about potential side effects and dependence Have reassured her that Trazodone is NOT habit-forming and she can just take the Rx on a PRN basis States that she has the Rx at home and will try it to help her get some sleep if she needs to (12) Anxiety: Code(s): F41.9 - Anxiety disorder, unspecified Plan: Controlled on her current Rx (Citalopram) (13) Major depression, recurrent: Code(s): F33.9 - Major depressive disorder, recurrent, unspecified Qualifiers: Active/Remission status: currently active Major depression episode severity: unspecified Qualified Code(s): F33.9 - Major depressive disorder, recurrent, unspecified Plan: Continue Citalopram 10 mg QD - Rx refilled (14) Smoker: Code(s): F17.200 - Nicotine dependence, unspecified, uncomplicated Plan: Counseled again on smoking cessation Plan Follow up in 4 months Orders: Orders Lipid Panel 4 Months E78.00 - Pure hypercholesterolemia, unspecified Hemoglobin A1c 4 Months R73.01 - Impaired fasting glucose UA CC w/rflx Micro + Cult 4 Months R30.0 - Dysuria Complete Blood Count Auto Diff 4 Months D64.9 - Anemia, unspecified Comprehensive Dietrich. Panel Fast 4 Months E78.00 - Pure hypercholesterolemia, unspecified Medications: Changed From ropinirole 0.5 mg PO BEDTIME 90 tabs 0RF G25.81 - Restless legs syndrome To ropinirole 0.5 mg PO BEDTIME 90 days 90 tabs 1RF G25.81 - Restless legs syndrome Refilled simvastatin 10 mg PO DAILY 90 days 90 tabs 1RF citalopram 10 mg PO DAILY 90 tabs 1RF Coding Level of Care Code Est Pt Level 4 (86907) Complex EM visit Add On G2211 Diagnoses Pure hypercholesterolemia E78.00 Chronic obstructive pulmonary disease, unspecified COPD type J44.9 COPD type: unspecified COPD Pulmonary nodules R91.8 Vitamin D deficiency E55.9 Lumbar degenerative disc disease M51.36 Arthritis of right shoulder region M19.011 Age-related osteoporosis without current pathological fracture M81.0 Osteoporosis type: age-related Presence of current pathological fracture: without current pathological fracture Restless legs syndrome (RLS) G25.81 Left hand pain M79.642 Recurrent vertigo R42 Insomnia, unspecified type G47.00 Insomnia type: unspecified Anxiety F41.9 Episode of recurrent major depressive disorder, unspecified depression episode severity F33.9 Active/Remission status: currently active Major depression episode severity: unspecified Smoker F17.200
== END 2023-12-03 11:24 | disposition home or self-care (01) ==
PROVIDERS: PCP Internal Medicine; Visit Provider Internal Medicine
DX: E78.00 Pure hypercholesterolemia, unspecified (principal); J44.9 Chronic obstructive pulmonary disease, unspecified; F33.9 Major depressive disorder, recurrent, unspecified; R91.8 Other nonspecific abnormal finding of lung field; E55.9 Vitamin D deficiency, unspecified; M51.36 Other intervertebral disc degeneration, lumbar region; M19.011 Primary osteoarthritis, right shoulder; M81.0 Age-related osteoporosis without current pathological fracture; G25.81 Restless legs syndrome; M79.642 Pain in left hand; R42 Dizziness and giddiness; G47.00 Insomnia, unspecified
CPT/HCPCS: 99214

== ENCOUNTER 2023-12-18 08:56 | Outpatient (AMB) | payer BC, SELFPAY ==
[2023-12-18 09:08] VITALS: BP 100/58; PULSE 96; O2SAT 96; BMI 18.5
--- NOTE | 2023-12-18 09:08 | A.OFFVIS_ITS ---
Vital Signs 12/18/23 09:08 Height 4 ft 11 in Weight 91 lb 7.869 oz BMI 18.5 BP 100/58 L Blood Pressure Location Lt brachial Position Sitting Pulse 96 Pulse Source Doppler Pulse Oximetry (%) 96 Oxygen Delivery Method Room Air Intake Visit Reasons: COPD Allergies aspirin [Aspirin] Allergy (Unknown, Verified 12/03/23 11:12) RASH diphenhydramine [From Benadryl] Allergy (Unknown, Verified 12/03/23 11:12) Unknown iron [Iron] Allergy (Unknown, Verified 12/03/23 11:12) VAGINAL INFECTION menthol [From Antihistamine] Allergy (Unknown, Verified 12/03/23 11:12) DIFF BREATHING penicillin V Allergy (Unknown, Verified 12/03/23 11:12) hives Penicillins Allergy (Unknown, Verified 12/03/23 11:12) Hives Sulfa (Sulfonamide Antibiotics) Allergy (Unknown, Verified 12/03/23 11:12) RASH ciprofloxacin Adverse Reaction (Severe, Verified 12/03/23 11:12) Headache HPI HPI COPD: Details: 73-year-old lady, active 60+ pack-year smoker followed for underlying moderate COPD.? She has been using Stiolto and albuterol MDI with good control of his symptoms. Her hemoptysis has not recurred. Her follow-up CT chest showed no significant changes from prior. She does complain of slowly worsening dyspnea on exertion. [facility] Medical History Insomnia Hemoptysis Osteoporosis Smoker Major depression, recurrent Anxiety Lumbar degenerative disc disease Vitamin D deficiency Pure hypercholesterolemia COPD (chronic obstructive pulmonary disease) Restless legs syndrome (RLS) Vertigo Surgical History History of colonoscopy (~12/1999) History of breast surgery Family History Father Mstjj-Zqktg-Bpdrq syndrome Mother Hypertension Paternal Aunt Rovjt-Txkkd-Picpy syndrome Social History Housing: House Alcohol intake: never Patient Tobacco Use Status: Current everyday Tobacco user Tobacco use type: Cigarette Cigarette Packs Per Day: 0.5 Cigarettes Per Day: 7 e-Cigarette/Vaping Use: Never Used Second Hand Smoke Exposure: Yes service: No Current occupational status: retired Cognitive needs: No Hearing needs: No Vision needs: Yes Review of Systems Const Denies daytime sleepiness, Denies excessive sweating, Denies fatigue, Denies fever(s), Denies lethargy, Denies malaise, Denies night sweats, Denies snoring and Denies weight loss Eyes Denies blurry vision and Denies itchy eyes ENT Denies nasal congestion, Denies post nasal drip, Denies sinus pain, Denies sinus pressure and Denies other ( Thrush) Card Denies chest pain, Denies pedal edema, Denies dyspnea, Reports dyspnea on exertion, Denies orthopnea and Denies paroxysmal nocturnal dyspnea Resp Denies cough, Denies hemoptysis, Denies excessive phlegm production, Denies dyspnea, Reports dyspnea on exertion, Denies snoring and Denies wheezing GI Denies abdominal pain and Denies heartburn Musc Denies myalgias, Denies arthralgias and Denies joint swelling Skin/Breast Denies rash Neuro Denies memory loss and Denies seizure-like activity Psych Denies abnormal sleep pattern, Denies anxiety and Denies memory loss Endo Denies excessive sweating, Denies fatigue and Denies heat intolerance Mack/Lymph Denies easy bruising Aller/Immun Denies itchy eyes, Denies seasonal rhinorrhea and Denies wheezing Physical Exam Vital Signs: Last Vital Signs Pulse 96 12/18/23 09:08 BP 100/58 L 12/18/23 09:08 Pulse Ox 96 12/18/23 09:08 Oxygen Delivery Method Room Air 12/18/23 09:08 BMI result Body Mass Index 18.5 Const General: no acute distress and alert Nutritional Appearance: not obese Orientation/consciousness: Other orientation findings ( oriented) HEENT Head: Yes atraumatic Eyes General: appearance normal, both eyes and all related structures Sclerae: sclerae normal EOM: EOMs intact bilaterally Neck Neck: Yes supple Lymphatic: no lymphadenopathy noted Resp Effort & Inspection: normal respiratory effort and no use of accessory muscles Auscultation: clear to auscultation bilaterally Cardio Rate: regular rate Rhythm: regular rhythm Heart sounds: no gallops, no murmurs and no rubs Skin General skin exam: other ( warm) Extrem General: No clubbing, No cyanosis and No edema Assessment & Plan Assessment & Plan (1) COPD (chronic obstructive pulmonary disease): Code(s): J44.9 - Chronic obstructive pulmonary disease, unspecified Category: Medical Qualifiers: COPD type: unspecified COPD Qualified Code(s): J44.9 - Chronic obstructive pulmonary disease, unspecified Plan: Worsening control on exertion, will add theophylline. Continue Stiolto and albuterol MDI. (2) Pulmonary nodules: Code(s): R91.8 - Other nonspecific abnormal finding of lung field Category: Medical Plan: Stable pulmonary nodules, lung cancer screening CT chest is pending for January of 2024. Coding Level of Care Code Est Pt Level 4 (05352) Diagnoses Chronic obstructive pulmonary disease, unspecified COPD type J44.9 COPD type: unspecified COPD Pulmonary nodules R91.8
== END 2023-12-18 09:27 | disposition home or self-care (01) ==
PROVIDERS: PCP Internal Medicine; Visit Provider Internal Medicine Pulmonary Disease
DX: J44.9 Chronic obstructive pulmonary disease, unspecified (principal); R91.8 Other nonspecific abnormal finding of lung field
CPT/HCPCS: 99214

== ENCOUNTER → 2023-12-18 08:56 | Outpatient (BNVA) | payer BC, SELFPAY | PROVIDERS: PCP Internal Medicine; Visit Provider Internal Medicine Pulmonary Disease ==

== ENCOUNTER 2024-04-03 07:01 | Outpatient (REF) | payer BC, SELFPAY ==
[2024-04-03 07:20] LABS: MANUAL DIFF FLAG NO
[2024-04-03 08:34] LABS: Basophils Percent Auto 0.3 % (0-2); Eosinophils Absolute Auto 0.1 X10*3/uL (0.0-0.4); Eosinophils Percent Auto 1.4 % (0-4); Hematocrit 43.9 % (37.0-47.0); Hemoglobin 14.1 g/dl (12.0-16.0); Imm Gran Abs Auto 0.02 X10*3/uL (0.00-0.03); Imm Gran Pct Auto 0.3 % (0.0-0.4); Lymphocytes Percent Auto 45.4 % (20-40); Mean Corpuscular HGB Conc 32.1 g/dl (31.0-35.0); Mean Corpuscular Hemoglobin 32.6 pg (27.0-33.0); Mean Corpuscular Volume 101.6 fL (80.0-98.0); Mean Platelet Volume 9.9 fL (9.4-12.3); Monocytes Absolute Auto 0.4 X10*3/uL (0.1-1.2); Monocytes Percent Auto 6.2 % (2-11); Neutrophils Absolute Auto 3.1 x10*3/uL (2.0-8.3); Neutrophils Percent Auto 46.4 % (45-73); Platelet Count 240 X10*3/uL (160-400); Red Blood Count 4.32 X10*6/uL (4.20-5.50); Red Cell Distribution Width 12.1 % (11.0-16.0); White Blood Count 6.6 X10*3/uL (4.8-10.8)
[2024-04-03 08:39] LABS: Estimated Average Glucose 105 mg/dL; Hemoglobin A1c % 5.3 % (<6.0); Total Hemoglobin (HGBA1C) 3719.2018 umol/L
[2024-04-03 08:48] LABS: Appearance Urine Clear; Color Urine Yellow; Glucose Urine UA Negative (Negative); Leukocyte Esterase Urine Trace (Negative); Nitrite Urine Negative (Negative); PH 6.5 (5.0-9.0); Specific Gravity - Urine 1.025 (1.005-1.025); UMIC TRIGGER UACC YES; Urine Blood Small (1+) (Negative); Urine Ketones Negative (Negative); Urine Protein Trace mg/dL (Neg-Trace)
[2024-04-03 08:51] LABS: Bacteria Urine None Seen (None Seen); Hyaline Casts Urine 0-2 /LPF (0-2); Squamous Epithelial Cell Urine 0-2 /HPF (0-2); UACC Culture Trigger YES
[2024-04-03 09:37] LABS: Alanine Aminotransferase 26 U/L (0-31); Albumin Level 4.2 g/dL (3.5-5.0); Alkaline Phosphatase 82 U/L (39-117); Anion Gap 9 (12-20); Aspartate Amino Transferase 35 U/L (5-31); Bilirubin Total 0.4 mg/dL (0.0-1.0); Blood Urea Nitrogen 12 mg/dL (9-16); Calcium 9.3 mg/dL (8.4-10.2); Carbon Dioxide 30 mmol/L (22-29); Chloride 108 mmol/L (96-108); Cholesterol 152 mg/dL (<200); Estimated Glomerular Filt Rate > 60; Glucose Fasting 108 mg/dL (60-99); HDL Cholesterol 38 mg/dL (>40); LDL Cholesterol Calculated 90 mg/dL (<100); Potassium 3.9 mmol/L (3.3-5.1); Sodium 143 mmol/L (135-145); Total Protein 6.7 g/dL (6.5-8.0); Triglycerides 120 mg/dL (<150)
== END 2024-04-03 07:02 | disposition home or self-care (01) ==
LOC: HO.LAB 07:01
PROVIDERS: PCP Internal Medicine; Visit Provider Internal Medicine
DX: E78.00 Pure hypercholesterolemia, unspecified (principal); R73.01 Impaired fasting glucose; D64.9 Anemia, unspecified; R30.0 Dysuria
CPT/HCPCS: 36415; 80053; 80061; 81001; 83036; 85025; 87086

== ENCOUNTER 2024-04-07 09:33 | Outpatient (AMB) | payer BC, SELFPAY ==
[2024-04-07 09:38] VITALS: BP 120/72; PULSE 85; O2SAT 96; BMI 18.3
--- NOTE | 2024-04-07 09:38 | A.OFFPC_ITS ---
Vital Signs 04/07/24 09:38 Height 4 ft 11 in Weight 90 lb 6 oz BMI 18.3 BP 120/72 Blood Pressure Location Lt brachial Position Sitting Pulse 85 Pulse Source Pulse Oximeter Pulse Oximetry (%) 96 Oxygen Delivery Method Room Air Intake Visit Reasons: 4 month f/u [employer] Required: No Accompanied by: Self / Same As Patient Allergies aspirin [Aspirin] Allergy (Unknown, Verified 04/07/24 10:14) RASH diphenhydramine [From Benadryl] Allergy (Unknown, Verified 04/07/24 10:14) Unknown iron [Iron] Allergy (Unknown, Verified 04/07/24 10:14) VAGINAL INFECTION menthol [From Antihistamine] Allergy (Unknown, Verified 04/07/24 10:14) DIFF BREATHING penicillin V Allergy (Unknown, Verified 04/07/24 10:14) hives Penicillins Allergy (Unknown, Verified 04/07/24 10:14) Hives Sulfa (Sulfonamide Antibiotics) Allergy (Unknown, Verified 04/07/24 10:14) RASH ciprofloxacin Adverse Reaction (Severe, Verified 04/07/24 10:14) Headache Medication List - Last Reconciled 04/07/24 by Jason Bansal MD acetaminophen (Tylenol) 650 mg (2 x 325 mg) PO Q6H PRN albuterol sulfate 2.5 mg (3 mL) inhalation Q6H PRN 30 days albuterol sulfate 90 mcg/actuation 2 puffs inhalation Q4-6H PRN betamethasone dipropionate 0.05% 1 appl topical BID PRN cholecalciferol (vitamin D3) 50 mcg PO DAILY citalopram 10 mg PO DAILY meclizine 25 mg PO DAILY PRN mometasone 0.1% 1 appl topical DAILY PRN ropinirole 0.5 mg PO BEDTIME 90 days simvastatin 10 mg PO DAILY 90 days theophylline ER 400 mg PO DAILY tiotropium-olodaterol 2.5-2.5 mcg/actuation (Stiolto Respimat) 2 puffs inhalation DAILY 90 days trazodone 50 mg PO BEDTIME PRN 30 days Tobacco use date assessed: 04/07/24 Fall risk assessment: No Falls in past year Last assessed Fall Risk: 04/07/24 Dental Screening Dental Screen Date: 04/07/24 Did you have a dental visit in the last 12 months?: No Did you have a dental problem in the last 6 months where you did not have access to dental care?: No Was dental information given to patient?: No HPI 4 month f/u HPI Details Patient comes in today for her follow up visit States that she feels okay She denies any headaches or dizziness Denies any chest pains; states that her chest still feels congested often and she still has MCINTOSH - feels that this is chronic States that she was started on Theophylline ER by pulmonary a few months ago but after reading the product insert that came with the Rx about it potentially interacting with her Trazodone and causing her to become more depressed, she did not start the Rx No nausea/vomiting, no abdominal pain No change in bowel habits noted Again needs a few of her Rx refilled She had her follow up labs done a few days ago - to discuss her results FOR[facility]LY [facility] Medical History Insomnia Hemoptysis Osteoporosis Smoker Major depression, recurrent Anxiety Lumbar degenerative disc disease Vitamin D deficiency Pure hypercholesterolemia COPD (chronic obstructive pulmonary disease) Restless legs syndrome (RLS) Vertigo Surgical History History of colonoscopy (~12/1999) History of breast surgery Family History Father Zaozl-Mekau-Uzfxs syndrome Mother Hypertension Paternal Aunt Dthmi-Ehpjq-Ffftd syndrome Social History Housing: House Alcohol intake: never Patient Tobacco Use Status: Current everyday Tobacco user Tobacco use type: Cigarette Cigarette Packs Per Day: 0.5 Cigarettes Per Day: 7 e-Cigarette/Vaping Use: Never Used Second Hand Smoke Exposure: Yes service: No Current occupational status: retired Cognitive needs: No Hearing needs: No Vision needs: Yes Questionnaire PHQ-9 Over the last 2 weeks, how often have you been bothered by any of the following problems? 1. Little interest or pleasure in doing things: not at all 2. Feeling down, depressed, or hopeless: not at all 3. Trouble falling or staying asleep, or sleeping too much: not at all 4. Feeling tired or having little energy: not at all 5. Poor appetite or overeating: not at all 6. Feeling bad about yourself - or that you are a failure or have let yourself or your family down: not at all 7. Trouble concentrating on things, such as reading the newspaper or watching television: not at all 8. Moving or speaking so slowly that other people could have noticed. Or the opposite - being so fidgety or restless that you have been moving around a lot more than usual: not at all 9. Thoughts that you would be better off or of hurting yourself in some way: not at all Total score: 0 Depression Screening Interpretation: Negative Depression Screening Done: Yes 86290 - PHQ-9 Billing: Yes Source: Developed by Drs. Elio Valenzuela, Tammy Rosenberg, Jerzy Nicholson and colleagues, with an educational herminio from [employer]. Thrive Questionnaire Date Thrive assessed: 04/07/24 I am a: Patient What is your living situation today?: I have a steady place to live Within the past 12 months, did the food you bought not last and you didn't have the money to get more?: Never true Within the past 12 months, did you worry whether your food would run out before you got money to buy more?: Never true Do you have trouble paying for medicines?: No Do you have trouble getting transportation to medical appointments?: No Do you have trouble paying your heating and electricity bill?: No Do you have trouble taking care of your child, family member or friend?: No Do you have trouble with day-to-day activities such as bathing, preparing meals, shopping, managing finances, etc.?: No Are you currently unemployed and looking for a job?: No Are you interested in more education?: No Please select the resources that you would like help with: None Currently or been in a relationship where the following occur: No concerns reported THRIVE Score: 0 AUDIT C Alcohol Use Questionnaire (AUDIT-C) 1. How often do you have a drink containing alcohol?: Never 3. How often do you have six or more drinks on one occasion?: Never Total Score: 0 Score Reviewed/Action Taken: Yes KAMI-7 AMB Questionnaire KAMI-7 Date KAMI - 7 assessed: 04/07/24 Feeling nervous, anxious, or on edge: 0 = Not at all Not being able to stop or control worryin = Not at all Worrying too much about different things: 0 = Not at all Trouble relaxin = Not at all Being so restless that it is hard to sit still: 0 = Not at all Becoming easily annoyed or irritable: 0 = Not at all Feeling afraid as if something awful might happen: 0 = Not at all Total KAMI-7 score (0-4 normal; 5-9 mild; 10-14 moderate; 15-21 severe): 0 Source: Developed by Drs. Elio Valenzuela, Tammy Rosenberg, Jerzy Nicholson and colleagues, with an educational herminio from [employer]. Review of Systems Const Denies chills, Reports difficulty sleeping, Reports fatigue, Denies fever(s), Denies headache(s) and Reports weight loss ENT Denies dysphagia, Denies dizziness, Denies otalgia, Denies headache(s), Denies neck pain, Denies odynophagia and Denies sore throat Card Denies chest pain, Denies palpitations and Reports dyspnea on exertion (mild) Resp Reports chest congestion (chest feels tight at times), Reports cough (on and off, coughs up scanty whitish phlegm often), Denies hemoptysis, Denies pain with cough, Reports dyspnea on exertion (mild) and Denies wheezing GI Denies abdominal pain, Denies constipation, Denies dysphagia, Denies heartburn, Denies diarrhea, Denies nausea, Denies odynophagia and Denies vomiting Denies difficulty voiding, Denies nocturia, Denies dysuria and Denies urinary urgency Musc Reports back pain (on and off over the lower back), Denies arthralgias and Denies neck pain Skin/Breast Denies rash Neuro Denies dizziness and Denies headache(s) Endo Reports fatigue and Denies palpitations Aller/Immun Denies wheezing Physical exam (Primary Care) Vital Signs: Last Vital Signs Pulse 85 04/07/24 09:38 BP 120/72 04/07/24 09:38 Pulse Ox 96 04/07/24 09:38 Oxygen Delivery Method Room Air 04/07/24 09:38 BMI result Body Mass Index 18.3 Tobacco/Smoking Status: Tobacco use Status Tobacco use date assessed 04/07/24 04/07/24 09:40 Patient Tobacco Use Status Current everyday Tobacco 04/07/24 09:40 Tobacco use type Cigarette 04/07/24 09:40 e-Cigarette/Vaping Use Never Used 04/07/24 09:40 PHQ-9: PHQ-9 Score PHQ-9: Total score 0 04/07/24 15:06 Depression Screening Interpretation: Negative Thrive Assessment: Date of Thrive Assessment Date Thrive assessed 04/07/24 04/07/24 09:40 Currently or been in a relationship where the following occur: No concerns reported Const General: no acute distress and alert HENMT Ears: TM's normal bilaterally and EAC's normal Throat: Yes posterior oropharynx normal and Yes tonsils normal (no TP congestion) Neck Neck: Yes supple and No lymphadenopathy Thyroid: Thyroid normal Resp Auscultation: no rales, rhonchi (occasional) throughout, no wheezes and diminished lung sounds (slightly) bilateral Cardio Rate: regular rate Rhythm: regular rhythm Heart sounds: no murmurs GI Palpation (GI): Soft to palpation and nontender Auscultation: normal bowel sounds General: Yes no CVA tenderness Back/Spine/Pelvis Back: no CVA tenderness Thoracic/Lumbar Spine: lumbar spinal tenderness (mild) Skin Rashes: no rashes Extrem General: Yes no clubbing, cyanosis or edema Right upper extremity: shoulder/upper arm Details: tenderness Location: of the A-C joint Left upper extremity: hand Details: tenderness Location: of the palm (mostly over the tendons on the palmar aspect of the hand proximally) Results Reviewed Results Reviewed: Laboratory Tests 04/03/24 07:18 WBC 6.6 Hgb 14.1 Hct 43.9 Plt Count 240 Sodium 143 Potassium 3.9 Creatinine 0.75 Estimated GFR > 60 Fasting Glucose 108 H Hemoglobin A1c % 5.3 Calcium 9.3 AST 35 H ALT 26 Triglycerides 120 Cholesterol 152 LDL Cholesterol, Calc 90 HDL Cholesterol 38 L Ur Specific [place] 1.025 Urine Protein Trace Urine Glucose (UA) Negative Urine Blood Small (1+) H Urine Nitrite Negative Ur Leukocyte Esterase Trace H Coding Level of Care Code Est Pt Level 4 (62075) Diagnoses Pure hypercholesterolemia E78.00 Chronic obstructive pulmonary disease, unspecified COPD type J44.9 COPD type: unspecified COPD Pulmonary nodules R91.8 Vitamin D deficiency E55.9 Degeneration of intervertebral disc of lumbar region with discogenic back pain M51.360 Disc-related pain type: discogenic back pain only Arthritis of right shoulder region M19.011 Age-related osteoporosis without current pathological fracture M81.0 Osteoporosis type: age-related Presence of current pathological fracture: without current pathological fracture Restless legs syndrome (RLS) G25.81 Vertigo R42 Insomnia, unspecified type G47.00 Insomnia type: unspecified Anxiety F41.9 Episode of recurrent major depressive disorder, unspecified depression episode severity F33.9 Active/Remission status: currently active Major depression episode severity: unspecified Smoker F17.200 Additional Codes PHQ-9 - 31309 - PHQ-9 Billing: Yes ([id number]) Assessment & Plan Assessment & Plan (1) Pure hypercholesterolemia: Code(s): E78.00 - Pure hypercholesterolemia, unspecified Category: Medical Plan: Results of her labs done a few days ago reviewed and discussed with patient Reinforced low cholesterol diet Continue Simvastatin 10 mg Q HS Will recheck her labs and fasting lipids in 4 months for follow up (2) COPD (chronic obstructive pulmonary disease): Code(s): J44.9 - Chronic obstructive pulmonary disease, unspecified Category: Medical Qualifiers: COPD type: unspecified COPD Qualified Code(s): J44.9 - Chronic obstructive pulmonary disease, unspecified Plan: Patient states that she is still experiencing recurrent mild flare ups of her COPD and respiratory symptoms lately Continue Stiolto Respimat 2.5-2.5 mcg 2 inhalations QD and Albuterol HFA 1 to 2 inhalations Q 6 hours PRN She was seen by Dr. Thomas back in November 2023 and was started additionally on Theophylline ER but patient has not yet started on the Rx States that she became concerned about Theophylline ER potentially interacting with her Rx for depression and she does not want to risk herself feeling very depressed again like she used to Have advised her that Theophylline ER should not really have any significant interactions with her Citalopram; it may interact with Trazodone but this is also not an absolute contraindication Have advised her to try starting on Theophylline ER NIHARIKA and to call us immediately if she starts experiencing any untoward side effects, which again is not necessarily a given Will also try her on Mucinex ER 600 mg BID PRN and this may help loosen up her phlegm and make it easier for her to cough up her respiratory secretions Per request, will also send in Rx for Albuterol nebulizer solution to she can use PRN Follow up with pulmonary as scheduled (3) Pulmonary nodules: Code(s): R91.8 - Other nonspecific abnormal finding of lung field Category: Medical Plan: These were stable on most recent chest CT in January 2023 She was supposed to have a repeat (1 year follow up) chest / lung CT done in January 2024 but she was not able to get this scheduled Will reorder her yearly lung CT screening for follow up of her pulmonary nodules Follow up with pulmonary as scheduled (4) Vitamin D deficiency: Code(s): E55.9 - Vitamin D deficiency, unspecified Category: Medical Plan: Continue Vitamin D3 2000 units QD (5) Lumbar degenerative disc disease: Code(s): M51.36 - Other intervertebral disc degeneration, lumbar region Category: Medical Qualifiers: Disc-related pain type: discogenic back pain only Qualified Code(s): M51.360 - Other intervertebral disc degeneration, lumbar region with discogenic back pain only Plan: Reinforced activity and weight-lifting restrictions to avoid aggravating her low back pain Continue Tizanidine 4 mg TID PRN (6) Arthritis of right shoulder region: Code(s): M19.011 - Primary osteoarthritis, right shoulder Category: Medical Plan: X-rays of the right shoulder done a couple of years ago revealed (+) AC arthritis changes She is advised to continue with the shoulder exercises that she was previously taught to help manage her shoulder symptoms Have advised patient again of the option of physical therapy referral if needed - patient states that she has to shell out a large co-pay every time she goes to physical therapy and she would like to hold off on doing this for now unless it is absolutely necessary Can also consider referral to orthopedics if her shoulder pain progresses or gets worse (7) Osteoporosis: Code(s): M81.0 - Age-related osteoporosis without current pathological fracture Category: Medical Qualifiers: Osteoporosis type: age-related Presence of current pathological fracture: without current pathological fracture Qualified Code(s): M81.0 - Age- related osteoporosis without current pathological fracture Plan: Repeat BMD done in July 2021 revealed a further decline in her BMD from previous (-10.7% decline in the lumbar spine and a -17% decline in the femur) - lowest T- score value was then at -4.4 BMD done back on 06/29/2017 showed (+) osteoporosis with lowest T score of -3.7, with a 6.2% decrease from previous BMD in AP spine and 17.3% decrease from previous BMD in the left femur Fall precautions reinforced but patient is encouraged again to continue to stay active and exercise regularly Continue Vitamin D and Calcium supplements daily - will consider repeat BMD for follow up later this year Discussed again consideration for referral to endocrinology for further management and Rx - patient would like to still hold off on this for now as she states that her is retiring soon and she will be changing her health insurance as a result (8) Restless legs syndrome (RLS): Code(s): G25.81 - Restless legs syndrome Category: Medical Plan: Continue Ropinirole 0.5 mg Q HS (9) Vertigo: Code(s): R42 - Dizziness and giddiness Category: Medical Plan: Appears resolved - patient states that she has been able to keep symptoms from recurring by not sleeping on her left side She has been seen by ENT for this and so far, has reportedly been told that they cannot find anything else wrong with her and have suggested trial of canalith positioning if her symptoms continue to recur (10) Insomnia: Code(s): G47.00 - Insomnia, unspecified Category: Medical Qualifiers: Insomnia type: unspecified Qualified Code(s): G47.00 - Insomnia, unspecified Plan: Sleep hygiene reinforced Continue Trazodone 50 mg Q HS PRN (11) Anxiety: Code(s): F41.9 - Anxiety disorder, unspecified Category: Medical Plan: Controlled on her current Rx (Citalopram) (12) Major depression, recurrent: Code(s): F33.9 - Major depressive disorder, recurrent, unspecified Category: Medical Qualifiers: Active/Remission status: currently active Major depression episode severity: unspecified Qualified Code(s): F33.9 - Major depressive disorder, recurrent, unspecified Plan: Continue Citalopram 10 mg QD - states that she is doing well on her current Rx (13) Smoker: Code(s): F17.200 - Nicotine dependence, unspecified, uncomplicated Category: Social Hx Plan: Patient is counseled again on smoking cessation Plan Follow up in 4 months Orders: Orders Complete Blood Count Auto Diff 4 Months D64.9 - Anemia, unspecified Lipid Panel 4 Months E78.00 - Pure hypercholesterolemia, unspecified TSH reflex Free T4 4 Months E78.00 - Pure hypercholesterolemia, unspecified Vitamin D 25-OH Total 4 Months E55.9 - Vitamin D deficiency, unspecified CT lung screening Today Z87.891 - Personal history of nicotine dependence Comprehensive [place]. Panel Fast 4 Months E78.00 - Pure hypercholesterolemia, unspecified UA CC w/rflx Micro + Cult 4 Months R30.0 - Dysuria Medications: New guaifenesin ER (Mucinex) 600 mg PO BID 30 days 60 tabs 5RF cough Changed From albuterol sulfate 2.5 mg (3 mL) inhalation Q6H 30 days PRN 360 mL 5RF shortness of breath or wheezing To albuterol sulfate 2.5 mg (3 mL) continuous nebulization Q6H 30 days PRN 360 mL 5RF shortness of breath or wheezing Refilled citalopram 10 mg PO DAILY 90 tabs 1RF ropinirole 0.5 mg PO BEDTIME 90 days 90 tabs 1RF G25.81 - Restless legs syndrome simvastatin 10 mg PO DAILY 90 days 90 tabs 1RF
== END 2024-04-07 10:30 | disposition home or self-care (01) ==
PROVIDERS: PCP Internal Medicine; Visit Provider Internal Medicine
DX: E78.00 Pure hypercholesterolemia, unspecified (principal); J44.9 Chronic obstructive pulmonary disease, unspecified; F33.9 Major depressive disorder, recurrent, unspecified; R91.8 Other nonspecific abnormal finding of lung field; E55.9 Vitamin D deficiency, unspecified; M51.360 Other intervertebral disc degeneration, lumbar region with discogenic back pain only; M19.011 Primary osteoarthritis, right shoulder; M81.0 Age-related osteoporosis without current pathological fracture; G25.81 Restless legs syndrome; R42 Dizziness and giddiness; G47.00 Insomnia, unspecified; F41.9 Anxiety disorder, unspecified

== ENCOUNTER → 2024-04-07 09:33 | Outpatient (BNVA) | payer BC, SELFPAY | PROVIDERS: PCP Internal Medicine; Visit Provider Internal Medicine | DX: E78.00 Pure hypercholesterolemia, unspecified (principal); J44.9 Chronic obstructive pulmonary disease, unspecified; R91.8 Other nonspecific abnormal finding of lung field; E55.9 Vitamin D deficiency, unspecified; M51.360 Other intervertebral disc degeneration, lumbar region with discogenic back pain only; M19.011 Primary osteoarthritis, right shoulder; M81.0 Age-related osteoporosis without current pathological fracture; G25.81 Restless legs syndrome; R42 Dizziness and giddiness; G47.00 Insomnia, unspecified; F41.9 Anxiety disorder, unspecified; F33.9 Major depressive disorder, recurrent, unspecified; F17.200 Nicotine dependence, unspecified, uncomplicated; Z79.899 Other long term (current) drug therapy | CPT/HCPCS: 96127 ==

== ENCOUNTER 2024-06-08 09:41 | Outpatient (REF) | payer BC, SELFPAY ==
--- NOTE | ~2024-06-08 | CT_ITS ---
CLINICAL HISTORY: Z87.891 - Personal history of nicotine dependence CT lung cancer screening (LDCT) Comparison: CT/SR - CT CHEST WO IV CON - 01/29/23 07:34 EST Technique: Axial CT images of the chest using low-dose technique. Referring provider counseled the patient on shared decision-making for LDCT screening. Additional counseling was provided on smoking cessation. Effective radiation dose total: DLP 19.3 mGycm, CTDIvol 0.6 mGy. Findings: There is moderate centrilobular emphysema. Calcified granulomata are seen in the left upper lobe And left lower lobe. 2 mm nodule in the right upper lobe is unchanged and best seen on image number 34 of series number 5. Pleural-based 3.5 mm nodule in the right middle lobe is also unchanged. This is best seen on image number 103 of series 5. There is severe coronary artery disease. Staghorn calculus right kidney. Tiny nonobstructing calculus left kidney. Other: None Impression: LungRADS 2 - Benign Appearance: Continue annual screening with low dose Chest CT in 12 months. ##L2# Category 1: Normal; continue annual screening Category 2: Benign appearance or behavior, continue annual screening Category 3: Probably benign, [address] recommended Category 4A: Suspicious, [address] recommended; may consider PET/CT Category 4B: Suspicious, Additional diagnostics and/or tissue sampling recommended Category 4X: Suspicious, Additional diagnostics and/or tissue sampling recommended Category 0: Recalls (incomplete screen due to Incomplete coverage, Noise, Respiratory motion, Expiration, Obscured by acute abnormality) This document has been electronically signed by: Jose M Saunders MD on 06/09/2024 11:41:38
== END 2024-06-08 09:42 | disposition home or self-care (01) ==
LOC: HO.CT 09:41
PROVIDERS: PCP Internal Medicine; Visit Provider Internal Medicine Pulmonary Disease
DX: Z12.2 Encounter for screening for malignant neoplasm of respiratory organs (principal); Z87.891 Personal history of nicotine dependence
CPT/HCPCS: 71271

== ENCOUNTER → 2024-06-08 09:43 | Outpatient (BNV) | payer BC, SELFPAY | PROVIDERS: PCP Internal Medicine; Visit Provider Radiology Diagnostic Radiology | DX: Z87.891 Personal history of nicotine dependence (principal) | CPT/HCPCS: 71271 ==

== ENCOUNTER 2024-06-19 08:48 | Outpatient (AMB) | payer BC, SELFPAY ==
--- NOTE | 2024-06-19 08:55 | A.OFFVIS_ITS ---
Vital Signs 06/19/24 08:57 Height 4 ft 11 in Weight 86 lb BMI 17.4 BP 98/58 L Blood Pressure Location Rt brachial Position Sitting Pulse 88 Pulse Source Doppler Pulse Oximetry (%) 94 Oxygen Delivery Method Room Air Intake Visit Reasons: COPD Allergies aspirin [Aspirin] Allergy (Unknown, Verified 06/19/24 09:00) RASH diphenhydramine [From Benadryl] Allergy (Unknown, Verified 06/19/24 09:00) Unknown iron [Iron] Allergy (Unknown, Verified 06/19/24 09:00) VAGINAL INFECTION menthol [From Antihistamine] Allergy (Unknown, Verified 06/19/24 09:00) DIFF BREATHING penicillin V Allergy (Unknown, Verified 06/19/24 09:00) hives Penicillins Allergy (Unknown, Verified 06/19/24 09:00) Hives Sulfa (Sulfonamide Antibiotics) Allergy (Unknown, Verified 06/19/24 09:00) RASH ciprofloxacin Adverse Reaction (Severe, Verified 06/19/24 09:00) Headache HPI HPI COPD: Details: 73-year-old lady, active 60+ pack-year smoker followed for underlying moderate COPD.? She has been using Stiolto and albuterol MDI with reasonable control of her symptoms. She has not started on theophylline yet. She denies recent exacerbations. [facility] Medical History Insomnia Hemoptysis Osteoporosis Smoker Major depression, recurrent Anxiety Lumbar degenerative disc disease Vitamin D deficiency Pure hypercholesterolemia COPD (chronic obstructive pulmonary disease) Restless legs syndrome (RLS) Vertigo Surgical History History of colonoscopy (~12/1999) History of breast surgery Family History Father Nkyyl-Sbzhr-Frlmr syndrome Mother Hypertension Paternal Aunt Hmnfc-Egcly-Xwczk syndrome Social History Housing: House Alcohol intake: never Patient Tobacco Use Status: Current everyday Tobacco user Tobacco use type: Cigarette Cigarette Packs Per Day: 0.5 Cigarettes Per Day: 7 e-Cigarette/Vaping Use: Never Used Second Hand Smoke Exposure: Yes service: No Current occupational status: retired Cognitive needs: No Hearing needs: No Vision needs: Yes Review of Systems Const Denies daytime sleepiness, Denies excessive sweating, Denies fatigue, Denies fever(s), Denies lethargy, Denies malaise, Denies night sweats, Denies snoring and Denies weight loss Eyes Denies blurry vision and Denies itchy eyes ENT Denies nasal congestion, Denies post nasal drip, Denies sinus pain, Denies sinus pressure and Denies other ( Thrush) Card Denies chest pain, Denies pedal edema, Denies dyspnea, Denies orthopnea and Denies paroxysmal nocturnal dyspnea Resp Denies cough, Denies hemoptysis, Denies excessive phlegm production, Denies dyspnea, Denies snoring and Denies wheezing GI Denies abdominal pain and Denies heartburn Musc Denies myalgias, Denies arthralgias and Denies joint swelling Skin/Breast Denies rash Neuro Denies memory loss and Denies seizure-like activity Psych Denies abnormal sleep pattern, Denies anxiety and Denies memory loss Endo Denies excessive sweating, Denies fatigue and Denies heat intolerance Mack/Lymph Denies easy bruising Aller/Immun Denies itchy eyes, Denies seasonal rhinorrhea and Denies wheezing Physical Exam Vital Signs: Last Vital Signs Pulse 88 06/19/24 08:57 BP 98/58 L 06/19/24 08:57 Pulse Ox 94 06/19/24 08:57 Oxygen Delivery Method Room Air 06/19/24 08:57 BMI result Body Mass Index 17.4 Const General: no acute distress and alert Nutritional Appearance: not obese Orientation/consciousness: Other orientation findings ( oriented) HEENT Head: Yes atraumatic Eyes General: appearance normal, both eyes and all related structures Sclerae: sclerae normal EOM: EOMs intact bilaterally Neck Neck: Yes supple Lymphatic: no lymphadenopathy noted Resp Effort & Inspection: normal respiratory effort and no use of accessory muscles Auscultation: clear to auscultation bilaterally Cardio Rate: regular rate Rhythm: regular rhythm Heart sounds: no gallops, no murmurs and no rubs Skin General skin exam: other ( warm) Extrem General: No clubbing, No cyanosis and No edema Assessment & Plan Assessment & Plan (1) COPD (chronic obstructive pulmonary disease): Code(s): J44.9 - Chronic obstructive pulmonary disease, unspecified Category: Medical Qualifiers: COPD type: unspecified COPD Qualified Code(s): J44.9 - Chronic obstructive pulmonary disease, unspecified Plan: Reasonable, but suboptimal control on Stiolto and albuterol MDI/nebs. Patient has not started on theophylline. Patient has been encouraged to try theophylline. (2) Personal history of nicotine dependence: Code(s): Z87.891 - Personal history of nicotine dependence Category: Medical Plan: Results of lung cancer screening CT chest from May of 2024 reviewed, no worrisome nodules at this time. Continue with yearly screening, next in May of 2024. Medications: Refilled theophylline ER 400 mg PO DAILY 30 tabs 6RF Coding Level of Care Code Est Pt Level 4 (07220) Diagnoses Chronic obstructive pulmonary disease, unspecified COPD type J44.9 COPD type: unspecified COPD Personal history of nicotine dependence Z87.891
[2024-06-19 08:57] VITALS: BP 98/58; PULSE 88; O2SAT 94; BMI 17.4
== END 2024-06-19 09:10 | disposition home or self-care (01) ==
LOC: HO.HPS 08:48
PROVIDERS: PCP Internal Medicine; Visit Provider Internal Medicine Pulmonary Disease
DX: J44.9 Chronic obstructive pulmonary disease, unspecified (principal); Z87.891 Personal history of nicotine dependence
CPT/HCPCS: 99214

== ENCOUNTER → 2024-06-19 08:48 | Outpatient (BNVA) | payer BC, SELFPAY | PROVIDERS: PCP Internal Medicine; Visit Provider Internal Medicine Pulmonary Disease ==

== ENCOUNTER 2024-06-24 09:02 | Outpatient (AMB) | payer BC, SELFPAY ==
--- NOTE | 2024-06-24 09:14 | AM.OFFWIN_ITS ---
Intake Vital Signs 06/24/24:17 Weight 87 lb BP 106/70 Blood Pressure Location Rt brachial Position Sitting Pulse 82 Pulse Source Pulse Oximeter Temp 98.5 F Temp Source Oral Pulse Oximetry (%) 98 Oxygen Delivery Method Room Air Intake Visit Reasons: EP-diarrheas, nauseas Intake Note: Patient here for diarrhea that started saturday. Patient Tobacco Use Status: Current everyday Tobacco user Allergies aspirin [Aspirin] Allergy (Unknown, Verified 06/24/24 09:17) RASH diphenhydramine [From Benadryl] Allergy (Unknown, Verified 06/24/24:17) Unknown iron [Iron] Allergy (Unknown, Verified 06/24/24:17) VAGINAL INFECTION menthol [From Antihistamine] Allergy (Unknown, Verified 06/24/24:) DIFF BREATHING penicillin V Allergy (Unknown, Verified 06/24/24:17) hives Penicillins Allergy (Unknown, Verified 06/24/24:) Hives Sulfa (Sulfonamide Antibiotics) Allergy (Unknown, Verified 06/24/24:) RASH ciprofloxacin Adverse Reaction (Severe, Verified 06/24/24:17) Headache Do you need a note to return to daycare/school/sports/work: No HPI HPI Comments History of Present Illness Details History of Present Illness The patient is a 73-year-old female presenting with diarrhea. The diarrhea commenced four days prior to the visit and is characterized at times by watery stools but not black or bloody. The symptoms are accompanied by diffuse mild abdominal pain and nausea without vomiting. The patient experiences diarrhea approximately one hour following food intake, irrespective of the meal type. She denies recent fevers. Notably, the patient started a new medication, theophylline, prescribed to open the airways due to COPD, and experienced symptoms shortly after initial administration. She ceased taking theophylline after the initial dose 4d ago, suspecting it might contribute to her gastrointestinal symptoms. There is no prior history of gallbladder disease, and she maintains adequate hydration without signs of dehydration. Physical Exam General: Cooperative, healthy appearing, comfortable, no acute distress and well developed Orientation: Patient oriented x3 Limitations: No limitations Head: Normal to inspection Ears: Hearing grossly normal bilaterally Nose: Normal External nose present Face and sinus: Normal facial exam Eyes: Appearance normal, both eyes and all related structures Neck: Normal visual inspection and Yes full ROM Respiratory: Normal respiratory effort and able to speak in complete sentences. GI: normoactive bs, soft, no TTP, negative Jacobson's and negative McBurney's point tenderness Skin: No rashes or lesions noted Neuro: Patient oriented x3 Extremities: Normal to inspection [facility] Medical History Insomnia Hemoptysis Osteoporosis Smoker Major depression, recurrent Anxiety Lumbar degenerative disc disease Vitamin D deficiency Pure hypercholesterolemia COPD (chronic obstructive pulmonary disease) Restless legs syndrome (RLS) Vertigo Surgical History History of colonoscopy (~12/1999) History of breast surgery Family History Father Rsasb-Rnuve-Ekpez syndrome Mother Hypertension Paternal Aunt Efcex-Fpsmg-Ooxvv syndrome Social History Housing: House Alcohol intake: never Patient Tobacco Use Status: Current everyday Tobacco user Tobacco use type: Cigarette Cigarette Packs Per Day: 0.5 Cigarettes Per Day: 7 e-Cigarette/Vaping Use: Never Used Second Hand Smoke Exposure: Yes service: No Current occupational status: retired Cognitive needs: No Hearing needs: No Vision needs: Yes Review of Systems Const All systems reviewed & are unremarkable except as noted in HPI and below Physical Exam Vital Signs: Last Vital Signs Temp 98.5 F 06/24/24 09:17 Pulse 82 06/24/24 09:17 BP 106/70 06/24/24 09:17 Pulse Ox 98 06/24/24 09:17 Oxygen Delivery Method Room Air 06/24/24 09:17 Assessment & Plan Assessment & Plan (1) Diarrhea: Code(s): R19.7 - Diarrhea, unspecified Qualifiers: Diarrhea type: unspecified type Qualified Code(s): R19.7 - Diarrhea, unspecified Plan: VSS, pt well appearing and abdominal exam unremarkable. Viral gastroenteritis vs medication side effect vs cholecystitis. The patient has already stopped theophylline, considering possible drug-induced diarrhea, and monitor symptom resolution, advised to follow up with Dr Thomas to discuss future use as it is less likely to have contributed to her symptoms since she only took one tablet 4 days ago. Hydration remains crucial, given the current adequate fluid intake and absence of dehydration signs. A viral gastroenteritis is suspected, anticipated to self-resolve; thus, loperamide/Imodium is recommended for symptomatic management in the absence of fever. If diarrhea continues or worsens, or specific concerns about gallbladder involvement arise, emergency evaluation by the ED is suggested. Follow-up with Dr. Bansal is proposed if symptoms do not resolve. Patient was informed and verbally consented to the use of an ambient scribe for clinic note documentation during this visit. Coding Level of Care Code Est Pt Level 3 (70148) Diagnoses Diarrhea, unspecified type R19.7 Diarrhea type: unspecified type
[2024-06-24 09:17] VITALS: BP 106/70; PULSE 82; TEMP 36.9; O2SAT 98
== END 2024-06-24 10:17 | disposition home or self-care (01) ==
PROVIDERS: PCP Internal Medicine; Visit Provider Physician Assistant
DX: R19.7 Diarrhea, unspecified (principal)

== ENCOUNTER → 2024-06-24 09:02 | Outpatient (BNVA) | payer BC, SELFPAY | PROVIDERS: PCP Internal Medicine; Visit Provider Physician Assistant ==

== ENCOUNTER 2024-06-25 08:54 | Outpatient (REF) | payer BC, SELFPAY ==
[2024-06-25 09:17] LABS: MANUAL DIFF FLAG NO
[2024-06-25 09:30] LABS: Basophils Percent Auto 0.3 % (0-2); Eosinophils Percent Auto 0.7 % (0-4); Hematocrit 43.9 % (37.0-47.0); Hemoglobin 14.1 g/dl (12.0-16.0); Imm Gran Abs Auto 0.02 X10*3/uL (0.00-0.03); Imm Gran Pct Auto 0.3 % (0.0-0.4); Lymphocytes Absolute Auto 2.6 X10*3/uL (1.2-4.9); Lymphocytes Percent Auto 42.4 % (20-40); Mean Corpuscular HGB Conc 32.1 g/dl (31.0-35.0); Mean Corpuscular Hemoglobin 32.4 pg (27.0-33.0); Mean Corpuscular Volume 100.9 fL (80.0-98.0); Mean Platelet Volume 9.3 fL (9.4-12.3); Monocytes Absolute Auto 0.3 X10*3/uL (0.1-1.2); Monocytes Percent Auto 4.1 % (2-11); Neutrophils Absolute Auto 3.2 x10*3/uL (2.0-8.3); Neutrophils Percent Auto 52.2 % (45-73); Platelet Count 246 X10*3/uL (160-400); Red Blood Count 4.35 X10*6/uL (4.20-5.50); Red Cell Distribution Width 12.3 % (11.0-16.0); White Blood Count 6.1 X10*3/uL (4.8-10.8)
[2024-06-25 11:01] LABS: Appearance Urine Clear; Color Urine Yellow; Glucose Urine UA Negative (Negative); Leukocyte Esterase Urine Small (1+) (Negative); Nitrite Urine Negative (Negative); Specific Gravity - Urine 1.025 (1.005-1.025); UMIC TRIGGER UACC YES; Urine Blood Moderate (2+) (Negative); Urine Ketones Negative (Negative); Urine Protein Trace mg/dL (Neg-Trace)
[2024-06-25 11:05] LABS: Bacteria Urine None Seen (None Seen); Hyaline Casts Urine 0-2 /LPF (0-2); Squamous Epithelial Cell Urine 0-2 /HPF (0-2); UACC Culture Trigger YES
[2024-06-25 18:00] LABS: Alanine Aminotransferase 24 U/L (0-31); Alkaline Phosphatase 74 U/L (39-117); Anion Gap 10 (12-20); Aspartate Amino Transferase 27 U/L (5-31); Bilirubin Total 0.3 mg/dL (0.0-1.0); Blood Urea Nitrogen 12 mg/dL (9-16); Calcium 9.3 mg/dL (8.4-10.2); Carbon Dioxide 28 mmol/L (22-29); Chloride 108 mmol/L (96-108); Cholesterol 132 mg/dL (<200); Estimated Glomerular Filt Rate > 60; Glucose Fasting 107 mg/dL (60-99); HDL Cholesterol 39 mg/dL (>40); LDL Cholesterol Calculated 77 mg/dL (<100); Potassium 3.8 mmol/L (3.3-5.1); Sodium 142 mmol/L (135-145); Total Protein 6.3 g/dL (6.5-8.0); Triglycerides 84 mg/dL (<150)
[2024-06-25 18:15] LABS: TSH reflex Free T4 1.01 uIU/mL (0.32-4.0); Vitamin D 25-OH Total 83.8 ng/mL (>30)
== END 2024-06-25 08:55 | disposition home or self-care (01) ==
LOC: HO.LAB 08:54
PROVIDERS: PCP Internal Medicine; Visit Provider Internal Medicine
DX: E78.00 Pure hypercholesterolemia, unspecified (principal); E55.9 Vitamin D deficiency, unspecified; D64.9 Anemia, unspecified; R30.0 Dysuria
CPT/HCPCS: 36415; 80053; 80061; 81001; 81003; 82306; 84443; 85025; 87086; 87088; 87186

== ENCOUNTER 2024-08-05 09:44 | Outpatient (AMB) | payer BC, MEDICARE, SELFPAY ==
[2024-08-05 09:50] VITALS: BP 122/80; PULSE 92; O2SAT 94; BMI 17.2
--- NOTE | 2024-08-05 09:50 | A.OFFPC_ITS ---
Vital Signs 08/05/24 09:50 Height 4 ft 11 in Weight 85 lb 6 oz BMI 17.2 BP 122/80 Blood Pressure Location Lt brachial Position Sitting Pulse 92 Pulse Source Pulse Oximeter Pulse Oximetry (%) 94 Oxygen Delivery Method Room Air Intake Visit Reasons: 4 Months f/u Edger Feeder Required: No Accompanied by: Self / Same As Patient Allergies aspirin [Aspirin] Allergy (Unknown, Verified 08/05/24 10:35) RASH diphenhydramine [From Benadryl] Allergy (Unknown, Verified 08/05/24 10:35) Unknown iron [Iron] Allergy (Unknown, Verified 08/05/24 10:35) VAGINAL INFECTION menthol [From Antihistamine] Allergy (Unknown, Verified 08/05/24 10:35) DIFF BREATHING penicillin V Allergy (Unknown, Verified 08/05/24 10:35) hives Penicillins Allergy (Unknown, Verified 08/05/24 10:35) Hives Sulfa (Sulfonamide Antibiotics) Allergy (Unknown, Verified 08/05/24 10:35) RASH ciprofloxacin Adverse Reaction (Severe, Verified 08/05/24 10:35) Headache Medication List - Last Reconciled 08/05/24 by Jason Bansal MD acetaminophen (Tylenol) 650 mg (2 x 325 mg) PO Q6H PRN albuterol sulfate 90 mcg/actuation 2 puffs inhalation Q4-6H PRN albuterol sulfate 2.5 mg (3 mL) continuous nebulization Q6H PRN 30 days betamethasone dipropionate 0.05% 1 appl topical BID PRN cholecalciferol (vitamin D3) 50 mcg PO DAILY citalopram 10 mg PO DAILY guaifenesin ER (Mucinex) 600 mg PO BID 30 days meclizine 25 mg PO DAILY PRN mometasone 0.1% 1 appl topical DAILY PRN ropinirole 0.5 mg PO BEDTIME 90 days simvastatin 10 mg PO DAILY 90 days theophylline ER 400 mg PO DAILY tiotropium-olodaterol 2.5-2.5 mcg/actuation (Stiolto Respimat) 2 puffs inhalation DAILY 90 days trazodone 50 mg PO BEDTIME PRN 30 days Tobacco use date assessed: 08/05/24 Fall risk assessment: No Falls in past year Last assessed Fall Risk: 08/05/24 Dental Screening Dental Screen Date: 08/05/24 Did you have a dental visit in the last 12 months?: No Did you have a dental problem in the last 6 months where you did not have access to dental care?: No Was dental information given to patient?: No HPI 4 Months f/u HPI Details Patient comes in today for her follow up visit States that she feels okay She denies any headaches or dizziness Denies any chest pains, no increased SOB No nausea/vomiting, no abdominal pain No change in bowel habits noted Needs her Ropnirole Rx refilled She had her follow up labs done last month - to discuss her results [facility] Medical History Insomnia Hemoptysis Osteoporosis Smoker Major depression, recurrent Anxiety Lumbar degenerative disc disease Vitamin D deficiency Pure hypercholesterolemia COPD (chronic obstructive pulmonary disease) Restless legs syndrome (RLS) Vertigo Surgical History History of colonoscopy (~12/1999) History of breast surgery Family History Father Flvnr-Bokkq-Rkhio syndrome Mother Hypertension Paternal Aunt Ozntj-Zpbxc-Ypyxh syndrome Social History Housing: House Alcohol intake: never Patient Tobacco Use Status: Current everyday Tobacco user Tobacco use type: Cigarette Cigarette Packs Per Day: 0.5 Cigarettes Per Day: 7 e-Cigarette/Vaping Use: Never Used Second Hand Smoke Exposure: Yes service: No Current occupational status: retired Cognitive needs: No Hearing needs: No Vision needs: Yes Questionnaire PHQ-9 Over the last 2 weeks, how often have you been bothered by any of the following problems? 1. Little interest or pleasure in doing things: not at all 2. Feeling down, depressed, or hopeless: not at all 3. Trouble falling or staying asleep, or sleeping too much: not at all 4. Feeling tired or having little energy: not at all 5. Poor appetite or overeating: several days 6. Feeling bad about yourself - or that you are a failure or have let yourself or your family down: not at all 7. Trouble concentrating on things, such as reading the newspaper or watching television: not at all 8. Moving or speaking so slowly that other people could have noticed. Or the opposite - being so fidgety or restless that you have been moving around a lot more than usual: not at all 9. Thoughts that you would be better off or of hurting yourself in some way: not at all Total score: 1 Depression Screening Interpretation: Negative Depression Screening Done: Yes 08945 - PHQ-9 Billing: Yes Source: Developed by Drs. Elio Valenzuela, Tammy Rosenberg, Jerzy Nicholson and colleagues, with an educational herminio from [employer]. Thrive Questionnaire Date Thrive assessed: 08/05/24 I am a: Patient What is your living situation today?: I have a steady place to live Within the past 12 months, did the food you bought not last and you didn't have the money to get more?: Never true Within the past 12 months, did you worry whether your food would run out before you got money to buy more?: Never true Do you have trouble paying for medicines?: Yes Do you have trouble getting transportation to medical appointments?: No Do you have trouble paying your heating and electricity bill?: No Do you have trouble taking care of your child, family member or friend?: No Do you have trouble with day-to-day activities such as bathing, preparing meals, shopping, managing finances, etc.?: No Are you currently unemployed and looking for a job?: No Are you interested in more education?: No Please select the resources that you would like help with: Paying for medicine Currently or been in a relationship where the following occur: I choose not to answer THRIVE Score: 0 AUDIT C Alcohol Use Questionnaire (AUDIT-C) 1. How often do you have a drink containing alcohol?: Never 3. How often do you have six or more drinks on one occasion?: Never Total Score: 0 Score Reviewed/Action Taken: Yes KAMI-7 AMB Questionnaire KAMI-7 Date KAMI - 7 assessed: 08/05/24 Feeling nervous, anxious, or on edge: 0 = Not at all Not being able to stop or control worryin = Not at all Worrying too much about different things: 0 = Not at all Trouble relaxin = Not at all Being so restless that it is hard to sit still: 0 = Not at all Becoming easily annoyed or irritable: 0 = Not at all Feeling afraid as if something awful might happen: 0 = Not at all Total KAMI-7 score (0-4 normal; 5-9 mild; 10-14 moderate; 15-21 severe): 0 Source: Developed by Drs. Elio Valenzuela, Tammy Rosenberg, Jerzy Nicholson and colleagues, with an educational herminio from [employer]. Review of Systems Const Denies chills, Reports difficulty sleeping, Reports fatigue, Denies fever(s) and Denies headache(s) ENT Denies dysphagia, Denies dizziness, Denies otalgia, Denies headache(s), Denies neck pain, Denies odynophagia and Denies sore throat Card Denies chest pain, Denies palpitations and Denies dyspnea Resp Denies chest congestion, Denies cough and Denies dyspnea GI Denies abdominal pain, Denies constipation, Denies dysphagia, Denies heartburn, Denies diarrhea, Denies nausea, Denies odynophagia and Denies vomiting Denies difficulty voiding, Denies nocturia, Denies dysuria and Denies urinary urgency Musc Reports back pain (on and off over the lower back), Denies arthralgias and Denies neck pain Skin/Breast Denies rash Neuro Denies dizziness and Denies headache(s) Endo Reports fatigue and Denies palpitations Physical exam (Primary Care) Vital Signs: Last Vital Signs Pulse 92 08/05/24 09:50 BP 122/80 08/05/24 09:50 Pulse Ox 94 08/05/24 09:50 Oxygen Delivery Method Room Air 08/05/24 09:50 BMI result Body Mass Index 17.2 Tobacco/Smoking Status: Tobacco use Status Tobacco use date assessed 08/05/24 08/05/24 09:53 Patient Tobacco Use Status Current everyday Tobacco 08/05/24 09:53 Tobacco use type Cigarette 08/05/24 09:53 e-Cigarette/Vaping Use Never Used 08/05/24 09:53 PHQ-9: PHQ-9 Score PHQ-9: Total score 1 08/05/24 10:36 Depression Screening Interpretation: Negative Thrive Assessment: Date of Thrive Assessment Date Thrive assessed 08/05/24 08/05/24 09:53 Currently or been in a relationship where the following occur: I choose not to answer Const General: no acute distress and alert HENMT Ears: TM's normal bilaterally and EAC's normal Throat: Yes posterior oropharynx normal and Yes tonsils normal (no TP congestion) Neck Neck: Yes supple and No lymphadenopathy Thyroid: Thyroid normal Resp Auscultation: no crackles, no rales, no wheezes and diminished lung sounds (slightly) bilateral Cardio Rate: regular rate Rhythm: regular rhythm Heart sounds: no murmurs GI Palpation (GI): Soft to palpation and nontender Auscultation: normal bowel sounds General: Yes no CVA tenderness Back/Spine/Pelvis Back: no CVA tenderness Thoracic/Lumbar Spine: lumbar spinal tenderness (mild) Skin Rashes: no rashes Extrem General: Yes no clubbing, cyanosis or edema Right upper extremity: shoulder/upper arm Details: tenderness (mild) Location: of the A-C joint Results Reviewed Results Reviewed: Laboratory Tests 06/25/24 06/25/24 09:12 09:16 WBC 6.1 Hgb 14.1 Hct 43.9 Plt Count 246 Sodium 142 Potassium 3.8 Creatinine 0.59 Estimated GFR > 60 Fasting Glucose 107 H Calcium 9.3 AST 27 ALT 24 Triglycerides 84 Cholesterol 132 LDL Cholesterol, Calc 77 HDL Cholesterol 39 L 25-OH Vitamin D Total 83.8 TSH 1.01 Ur Specific Laurier 1.025 Urine Protein Trace Urine Glucose (UA) Negative Urine Blood Moderate (2+) H Urine Nitrite Negative Ur Leukocyte Esterase Small (1+) H Coding Level of Care Code Est Pt Level 4 (38959) Complex EM visit Add On G2211 Diagnoses Pure hypercholesterolemia E78.00 Chronic obstructive pulmonary disease, unspecified COPD type J44.9 COPD type: unspecified COPD Pulmonary nodules R91.8 Vitamin D deficiency E55.9 Degeneration of intervertebral disc of lumbar region with discogenic back pain M51.360 Disc-related pain type: discogenic back pain only Arthritis of right shoulder region M19.011 Age-related osteoporosis without current pathological fracture M81.0 Osteoporosis type: age-related Presence of current pathological fracture: without current pathological fracture Restless legs syndrome (RLS) G25.81 Insomnia, unspecified type G47.00 Insomnia type: unspecified Anxiety F41.9 Episode of recurrent major depressive disorder, unspecified depression episode severity F33.9 Active/Remission status: currently active Major depression episode severity: unspecified Smoker F17.200 Additional Codes PHQ-9 - 89651 - PHQ-9 Billing: Yes ([id number]) Assessment & Plan Assessment & Plan (1) Pure hypercholesterolemia: Code(s): E78.00 - Pure hypercholesterolemia, unspecified Category: Medical Plan: Results of her labs done last month reviewed and discussed with patient Reinforced low cholesterol diet Continue Simvastatin 10 mg Q HS Will recheck her labs and fasting lipids in 4 months for follow up (2) COPD (chronic obstructive pulmonary disease): Code(s): J44.9 - Chronic obstructive pulmonary disease, unspecified Category: Medical Qualifiers: COPD type: unspecified COPD Qualified Code(s): J44.9 - Chronic obstructive pulmonary disease, unspecified Plan: Better controlled lately Continue Stiolto Respimat 2.5-2.5 mcg 2 inhalations QD, Theophylline ER 400 mg QD and Albuterol HFA 1 to 2 inhalations Q 6 hours PRN Follow up with pulmonary as scheduled (3) Pulmonary nodules: Code(s): R91.8 - Other nonspecific abnormal finding of lung field Category: Medical Plan: These were stable on most recent chest CT in January 2023 She was supposed to have a repeat (1 year follow up) chest / lung CT done in January 2024 but she was not able to get this scheduled We reordered her yearly lung CT screening at her last visit and she eventually had this done in May 2024, which came out benign and she was advised to continue annual screening with low dose chest CT in 12 months Follow up with pulmonary as scheduled (4) Vitamin D deficiency: Code(s): E55.9 - Vitamin D deficiency, unspecified Category: Medical Plan: Continue Vitamin D3 2000 units QD (5) Lumbar degenerative disc disease: Code(s): M51.36 - Other intervertebral disc degeneration, lumbar region Category: Medical Qualifiers: Disc-related pain type: discogenic back pain only Qualified Code(s): M51.360 - Other intervertebral disc degeneration, lumbar region with discogenic back pain only Plan: Reinforced activity and weight-lifting restrictions to avoid aggravating her low back pain Continue Tizanidine 4 mg TID PRN (6) Arthritis of right shoulder region: Code(s): M19.011 - Primary osteoarthritis, right shoulder Category: Medical Plan: X-rays of the right shoulder done a couple of years ago revealed (+) AC arthritis changes She is advised to continue with the shoulder exercises that she was previously taught to help manage her shoulder symptoms Have advised patient again of the option of physical therapy referral if needed - patient states that she has to shell out a large co-pay every time she goes to physical therapy and she would like to hold off on doing this for now unless it is absolutely necessary Can also consider referral to orthopedics if her shoulder pain progresses or gets worse (7) Osteoporosis: Code(s): M81.0 - Age-related osteoporosis without current pathological fracture Category: Medical Qualifiers: Osteoporosis type: age-related Presence of current pathological fracture: without current pathological fracture Qualified Code(s): M81.0 - Age- related osteoporosis without current pathological fracture Plan: Repeat BMD done in July 2021 revealed a further decline in her BMD from previous (-10.7% decline in the lumbar spine and a -17% decline in the femur) - lowest T- score value was then at -4.4 BMD done back on 06/29/2017 showed (+) osteoporosis with lowest T score of -3.7, with a 6.2% decrease from previous BMD in AP spine and 17.3% decrease from previous BMD in the left femur Fall precautions reinforced but patient is encouraged again to continue to stay active and exercise regularly Continue Vitamin D and Calcium supplements daily - will consider repeat BMD for follow up later this year Discussed again consideration for referral to endocrinology for further management and Rx - patient would like to still hold off on this for now as she states that her is retiring soon and she will be changing her health insurance as a result (8) Restless legs syndrome (RLS): Code(s): G25.81 - Restless legs syndrome Category: Medical Plan: Continue Ropinirole 0.5 mg Q HS - Rx refilled (9) Insomnia: Code(s): G47.00 - Insomnia, unspecified Category: Medical Qualifiers: Insomnia type: unspecified Qualified Code(s): G47.00 - Insomnia, unspecified Plan: Sleep hygiene reinforced Continue Trazodone 50 mg Q HS PRN (10) Anxiety: Code(s): F41.9 - Anxiety disorder, unspecified Category: Medical Plan: Controlled on her current Rx (Citalopram) (11) Major depression, recurrent: Code(s): F33.9 - Major depressive disorder, recurrent, unspecified Category: Medical Qualifiers: Active/Remission status: currently active Major depression episode severity: unspecified Qualified Code(s): F33.9 - Major depressive disorder, recurrent, unspecified Plan: Continue Citalopram 10 mg QD - states that she is doing well on her current Rx (12) Smoker: Code(s): F17.200 - Nicotine dependence, unspecified, uncomplicated Category: Social Hx Plan: Patient is counseled again on complete smoking cessation Plan Follow up in 4 months Orders: Orders Hemoglobin A1c 4 Months R73.01 - Impaired fasting glucose Complete Blood Count Auto Diff 4 Months D64.9 - Anemia, unspecified Comprehensive Elizabeth. Panel Fast 4 Months E78.00 - Pure hypercholesterolemia, unspecified Lipid Panel 4 Months E78.00 - Pure hypercholesterolemia, unspecified Medications: Refilled ropinirole 0.5 mg PO BEDTIME 90 days 90 tabs 1RF G25.81 - Restless legs syndrome
== END 2024-08-05 10:44 | disposition home or self-care (01) ==
LOC: HO.HMCH 09:44
PROVIDERS: PCP Internal Medicine; Visit Provider Internal Medicine
DX: E78.00 Pure hypercholesterolemia, unspecified (principal); J44.9 Chronic obstructive pulmonary disease, unspecified; R91.8 Other nonspecific abnormal finding of lung field; E55.9 Vitamin D deficiency, unspecified; M51.360 Other intervertebral disc degeneration, lumbar region with discogenic back pain only; M19.011 Primary osteoarthritis, right shoulder; M81.0 Age-related osteoporosis without current pathological fracture; G25.81 Restless legs syndrome; G47.00 Insomnia, unspecified; F41.9 Anxiety disorder, unspecified; F33.9 Major depressive disorder, recurrent, unspecified; F17.200 Nicotine dependence, unspecified, uncomplicated

== ENCOUNTER → 2024-08-05 09:44 | Outpatient (BNVA) | payer BC, MEDICARE, SELFPAY | PROVIDERS: PCP Internal Medicine; Visit Provider Internal Medicine | DX: E78.00 Pure hypercholesterolemia, unspecified (principal); J44.9 Chronic obstructive pulmonary disease, unspecified; R91.8 Other nonspecific abnormal finding of lung field; E55.9 Vitamin D deficiency, unspecified; M51.360 Other intervertebral disc degeneration, lumbar region with discogenic back pain only; M19.011 Primary osteoarthritis, right shoulder; M81.0 Age-related osteoporosis without current pathological fracture; G25.81 Restless legs syndrome; G47.00 Insomnia, unspecified; F41.9 Anxiety disorder, unspecified; F33.9 Major depressive disorder, recurrent, unspecified; F17.200 Nicotine dependence, unspecified, uncomplicated; Z79.899 Other long term (current) drug therapy | CPT/HCPCS: 96127 ==

== ENCOUNTER 2024-10-06 13:19 | Outpatient (AMB) | payer BC, SELFPAY ==
--- NOTE | 2024-10-06 13:33 | MHC.OFFVIS ---
Vital Signs 10/06/24 13:34 Height 4 ft 11 in Weight 79 lb BMI 16.0 BP 119/60 Blood Pressure Location Lt brachial Position Sitting Pulse 100 Pulse Source Pulse Oximeter Pulse Oximetry (%) 95 Oxygen Delivery Method Room Air Intake Visit Reasons: COPD Allergies aspirin (Aspirin) Allergy (Unknown, Verified 10/06/24 13:38) RASH diphenhydramine (From Benadryl) Allergy (Unknown, Verified 10/06/24 13:38) Unknown iron (Iron) Allergy (Unknown, Verified 10/06/24 13:38) VAGINAL INFECTION menthol (From Antihistamine) Allergy (Unknown, Verified 10/06/24 13:38) DIFF BREATHING penicillin V Allergy (Unknown, Verified 10/06/24 13:38) hives Penicillins Allergy (Unknown, Verified 10/06/24 13:38) Hives Sulfa (Sulfonamide Antibiotics) Allergy (Unknown, Verified 10/06/24 13:38) RASH ciprofloxacin Adverse Reaction (Severe, Verified 10/06/24 13:38) Headache HPI HPI COPD: Details: 74-year-old lady, active 60+ pack-year smoker followed for underlying moderate COPD.? She has been using Stiolto and albuterol MDI with reasonable control of her symptoms. She has tried theophylline, however, she was not able to tolerate it secondary to GI side effects. She continues to complain of baseline dyspnea. [facility] Medical History Insomnia Hemoptysis Osteoporosis Smoker Major depression, recurrent Anxiety Lumbar degenerative disc disease Vitamin D deficiency Pure hypercholesterolemia COPD (chronic obstructive pulmonary disease) Restless legs syndrome (RLS) Vertigo Surgical History History of colonoscopy (~12/1999) History of breast surgery Family History Father Jolnc-Nnupo-Xxrpr syndrome Mother Hypertension Paternal Aunt Pknyk-Obaic-Jgeeh syndrome Social History Housing: House Alcohol intake: never Patient Tobacco Use Status: Current everyday Tobacco user Tobacco use type: Cigarette Cigarette Packs Per Day: 0.5 Cigarettes Per Day: 7 e-Cigarette/Vaping Use: Never Used Second Hand Smoke Exposure: Yes service: No Current occupational status: retired Cognitive needs: No Hearing needs: No Vision needs: Yes Review of Systems Const Denies daytime sleepiness, Denies excessive sweating, Denies fatigue, Denies fever(s), Denies lethargy, Denies malaise, Denies night sweats, Denies snoring and Denies weight loss Eyes Denies blurry vision and Denies itchy eyes ENT Denies nasal congestion, Denies post nasal drip, Denies sinus pain, Denies sinus pressure and Denies other ( Thrush) Card Denies chest pain, Denies pedal edema, Denies dyspnea, Reports dyspnea on exertion, Denies orthopnea and Denies paroxysmal nocturnal dyspnea Resp Denies cough, Denies hemoptysis, Denies excessive phlegm production, Denies dyspnea, Reports dyspnea on exertion, Denies snoring and Denies wheezing GI Denies abdominal pain and Denies heartburn Musc Denies myalgias, Denies arthralgias and Denies joint swelling Skin/Breast Denies rash Neuro Denies memory loss and Denies seizure-like activity Psych Denies abnormal sleep pattern, Denies anxiety and Denies memory loss Endo Denies excessive sweating, Denies fatigue and Denies heat intolerance Mack/Lymph Denies easy bruising Aller/Immun Denies itchy eyes, Denies seasonal rhinorrhea and Denies wheezing Physical Exam Vital Signs: Last Vital Signs Pulse 100 10/06/24 13:34 BP 119/60 10/06/24 13:34 Pulse Ox 95 10/06/24 13:34 Oxygen Delivery Method Room Air 10/06/24 13:34 BMI result Body Mass Index 16.0 Const General: no acute distress and alert Nutritional Appearance: not obese Orientation/consciousness: Other orientation findings ( oriented) HEENT Head: Yes atraumatic Eyes General: appearance normal, both eyes and all related structures Sclerae: sclerae normal EOM: EOMs intact bilaterally Neck Neck: Yes supple Lymphatic: no lymphadenopathy noted Resp Effort & Inspection: normal respiratory effort and no use of accessory muscles Auscultation: clear to auscultation bilaterally Cardio Rate: regular rate Rhythm: regular rhythm Heart sounds: no gallops, no murmurs and no rubs Skin General skin exam: other ( warm) Extrem General: No clubbing, No cyanosis and No edema Assessment & Plan Assessment & Plan (1) COPD (chronic obstructive pulmonary disease): Code(s): J44.9 - Chronic obstructive pulmonary disease, unspecified Category: Medical Qualifiers: COPD type: unspecified COPD Qualified Code(s): J44.9 - Chronic obstructive pulmonary disease, unspecified Plan: Unable to tolerate theophylline. Continue Stiolto and albuterol MDI/nebs. Will add Yupelri. (2) Personal history of nicotine dependence: Code(s): Z87.891 - Personal history of nicotine dependence Category: Medical Plan: Results of lung cancer screening CT chest from May of 2024 reviewed, no worrisome nodules. Continue with yearly screening, next in May of 2025. Medications: New revefenacin (Yupelri) 175 mcg (3 mL) inhalation DAILY 90 mL 6RF J44.9 - Chronic obstructive pulmonary disease, unspecified Discontinued theophylline ER Discontinued Reason: Doctor's Order 400 mg PO DAILY 30 tabs 6RF Coding Level of Care Code Est Pt Level 4 (92391) Diagnoses Chronic obstructive pulmonary disease, unspecified COPD type J44.9 COPD type: unspecified COPD Personal history of nicotine dependence Z87.891
[2024-10-06 13:34] VITALS: BP 119/60; PULSE 100; O2SAT 95; BMI 16.0
== END 2024-10-06 13:55 | disposition home or self-care (01) ==
LOC: HO.HPS 13:19
PROVIDERS: PCP Internal Medicine; Visit Provider Internal Medicine Pulmonary Disease
DX: J44.9 Chronic obstructive pulmonary disease, unspecified (principal); Z87.891 Personal history of nicotine dependence
CPT/HCPCS: 99214

== ENCOUNTER 2024-12-07 07:17 | Outpatient (REF) | payer BC, MEDICARE, SELFPAY ==
[2024-12-07 07:40] LABS: MANUAL DIFF FLAG NO
[2024-12-07 08:33] LABS: Hematocrit 44.1 % (37.0-47.0); Hemoglobin 14.6 g/dl (12.0-16.0); Imm Gran Abs Auto 0.01 X10*3/uL (0.00-0.03); Imm Gran Pct Auto 0.2 % (0.0-0.4); Lymphocytes Absolute Auto 2.9 X10*3/uL (1.2-4.9); Mean Corpuscular HGB Conc 33.1 g/dl (31.0-35.0); Mean Corpuscular Hemoglobin 33.7 pg (27.0-33.0); Mean Corpuscular Volume 101.8 fL (80.0-98.0); NRBC Abs Auto 0.000 X10*3/uL (0.0-0.012); NRBC Pct Auto 0.0 /100WBC (0.0-0.2); Platelet Count 253 X10*3/uL (160-400); Red Blood Count 4.33 X10*6/uL (4.20-5.50); White Blood Count 6.2 X10*3/uL (4.8-10.8)
[2024-12-07 08:41] LABS: Hemoglobin A1C 135.6402 umol/L; Total Hemoglobin (HGBA1C) 3806.0510 umol/L
[2024-12-07 08:57] LABS: Alanine Aminotransferase 22 U/L (0-31); Albumin Level 4.4 g/dL (3.5-5.0); Alkaline Phosphatase 88 U/L (39-117); Anion Gap 13 (12-20); Aspartate Amino Transferase 29 U/L (5-31); Blood Urea Nitrogen 14 mg/dL (9-16); Calcium 9.2 mg/dL (8.4-10.2); Carbon Dioxide 29 mmol/L (22-29); Chloride 105 mmol/L (96-108); Cholesterol 136 mg/dL (<200); Estimated Glomerular Filt Rate > 60; HDL Cholesterol 44 mg/dL (>40); Potassium 3.9 mmol/L (3.3-5.1); Sodium 143 mmol/L (135-145); Total Protein 6.8 g/dL (6.5-8.0); Triglycerides 86 mg/dL (<150)
[2024-12-07 09:17] LABS: Appearance Urine Cloudy; Glucose Urine UA Negative (Negative); PH 7.5 (5.0-9.0); Specific Gravity - Urine 1.020 (1.005-1.025); UMIC TRIGGER UACC YES
[2024-12-07 09:23] LABS: UACC Culture Trigger YES
== END 2024-12-07 07:18 | disposition home or self-care (01) ==
LOC: HO.LAB 07:17
PROVIDERS: Visit Provider Internal Medicine
DX: R73.01 Impaired fasting glucose (principal); D64.9 Anemia, unspecified; E78.00 Pure hypercholesterolemia, unspecified
CPT/HCPCS: 36415; 80053; 80061; 81001; 81003; 83036; 85025; 87086

== ENCOUNTER 2024-12-10 08:53 | Outpatient (AMB) | payer MEDICARE, BC, SELFPAY ==
--- NOTE | 2024-12-10 09:16 | A.OFFPC_ITS ---
Vital Signs 12/10/24 09:17 Height 4 ft 11 in Weight 84 lb 2 oz BMI 17.0 BP 114/68 Blood Pressure Location Lt brachial Position Sitting Pulse 91 Pulse Source Pulse Oximeter Temp 97.3 F Temp Source Temporal Artery Scan Pulse Oximetry (%) 94 Oxygen Delivery Method Room Air Intake Visit Reasons: hyperlipidemia, COPD Intake Note: Patient is here to follow up on HLD, COPD. Contact Center Team Lead Required: No Truck Service Technician: Not Required per policy Accompanied by: Self / Same As Patient Allergies aspirin (Aspirin) Allergy (Unknown, Verified 12/10/24 09:53) RASH diphenhydramine (From Benadryl) Allergy (Unknown, Verified 12/10/24 09:53) Unknown iron (Iron) Allergy (Unknown, Verified 12/10/24 09:53) VAGINAL INFECTION menthol (From Antihistamine) Allergy (Unknown, Verified 12/10/24 09:53) DIFF BREATHING penicillin V Allergy (Unknown, Verified 12/10/24 09:53) hives Penicillins Allergy (Unknown, Verified 12/10/24 09:53) Hives Sulfa (Sulfonamide Antibiotics) Allergy (Unknown, Verified 12/10/24 09:53) RASH ciprofloxacin Adverse Reaction (Severe, Verified 12/10/24 09:53) Headache Medication List - Last Reconciled 12/10/24 by Jason Bansal MD acetaminophen (Tylenol) 650 mg (2 x 325 mg) PO Q6H PRN albuterol sulfate 90 mcg/actuation 2 puffs inhalation Q4-6H PRN albuterol sulfate 2.5 mg (3 mL) continuous nebulization Q6H PRN 30 days betamethasone dipropionate 0.05% 1 appl topical BID PRN cholecalciferol (vitamin D3) 50 mcg PO DAILY citalopram 10 mg PO DAILY meclizine 25 mg PO DAILY PRN mometasone 0.1% 1 appl topical DAILY PRN revefenacin (Yupelri) 175 mcg (3 mL) inhalation DAILY ropinirole 0.5 mg PO BEDTIME 90 days simvastatin 10 mg PO DAILY 90 days tiotropium-olodaterol 2.5-2.5 mcg/actuation (Stiolto Respimat) 2 puffs inhalation DAILY 90 days trazodone 50 mg PO BEDTIME PRN 30 days Tobacco use date assessed: 12/10/24 Fall risk assessment: No Falls in past year Last assessed Fall Risk: 12/10/24 Dental Screening Dental Screen Date: 08/05/24 HPI hyperlipidemia, COPD HPI Details Patient comes in today for her follow up visit States that she feels okay She denies any headaches or dizziness Denies any chest pains, no increased SOB - states that pulmonary started her on Yupelri for her COPD as she could not tolerate Theophylline No nausea/vomiting, no abdominal pain No change in bowel habits noted Needs her Stiolto and Ropinirole Rx refilled She had her follow up labs done a few days ago - to discuss her results [facility] Medical History Insomnia Hemoptysis Osteoporosis Smoker Major depression, recurrent Anxiety Lumbar degenerative disc disease Vitamin D deficiency Pure hypercholesterolemia COPD (chronic obstructive pulmonary disease) Restless legs syndrome (RLS) Vertigo Surgical History History of colonoscopy (~12/1999) History of breast surgery Family History Father Voasj-Acxws-Mwvqi syndrome Mother Hypertension Paternal Aunt Ybldx-Tbsvf-Wqrsd syndrome Social History (Updated 12/10/24 @ 09:22 by JEY Reis) Housing: House Alcohol intake: never Patient Tobacco Use Status: Current everyday Tobacco user Tobacco use type: Cigarette Cigarette Packs Per Day: 0.5 Cigarettes Per Day: 8 e-Cigarette/Vaping Use: Never Used Second Hand Smoke Exposure: Yes service: No Current occupational status: retired Cognitive needs: No Hearing needs: No Vision needs: Yes Questionnaire PHQ-9 Over the last 2 weeks, how often have you been bothered by any of the following problems? Depression Screening Interpretation: Negative Depression Screening Done: Yes Source: Developed by Drs. Elio Valenzuela, Tammy Rosenberg, Jerzy Nicholson and colleagues, with an educational herminio from [employer]. Thrive Questionnaire Date Thrive assessed: 08/02/24 I am a: Patient What is your living situation today?: I have a steady place to live Within the past 12 months, did the food you bought not last and you didn't have the money to get more?: Never true Within the past 12 months, did you worry whether your food would run out before you got money to buy more?: Never true Do you have trouble paying for medicines?: Yes Do you have trouble getting transportation to medical appointments?: No Do you have trouble paying your heating and electricity bill?: No Do you have trouble taking care of your child, family member or friend?: No Do you have trouble with day-to-day activities such as bathing, preparing meals, shopping, managing finances, etc.?: No Are you currently unemployed and looking for a job?: No Are you interested in more education?: No Please select the resources that you would like help with: Paying for medicine Currently or been in a relationship where the following occur: I choose not to answer THRIVE Score: 0 AUDIT C Alcohol Use Questionnaire (AUDIT-C) 2. How many drinks containing alcohol do you have on a typical day when you are drinking?: 1 or 2 Total Score: 0 KAMI-7 AMB Questionnaire KAMI-7 Date KAMI - 7 assessed: 08/05/24 Source: Developed by Drs. Elio Valenzuela, Tammy Rosenberg, Jerzy Nicholson and colleagues, with an educational herminio from [employer]. Review of Systems Const Denies chills, Reports difficulty sleeping, Reports fatigue, Denies fever(s) and Denies headache(s) ENT Denies dysphagia, Denies dizziness, Denies otalgia, Denies headache(s), Denies neck pain, Denies odynophagia and Denies sore throat Card Denies chest pain, Denies palpitations and Denies dyspnea Resp Denies chest congestion, Denies cough and Denies dyspnea GI Denies abdominal pain, Denies constipation, Denies dysphagia, Denies heartburn, Denies diarrhea, Denies nausea, Denies odynophagia and Denies vomiting Denies difficulty voiding, Denies nocturia, Denies dysuria and Denies urinary urgency Musc Reports back pain (on and off over the lower back), Denies arthralgias and Denies neck pain Skin/Breast Denies rash Neuro Denies dizziness and Denies headache(s) Endo Reports fatigue and Denies palpitations Physical exam (Primary Care) Vital Signs: Last Vital Signs Temp 97.3 F 12/10/24 09:17 Pulse 91 12/10/24 09:17 BP 114/68 12/10/24 09:17 Pulse Ox 94 12/10/24 09:17 Oxygen Delivery Method Room Air 12/10/24 09:17 BMI result Body Mass Index 17.0 Tobacco/Smoking Status: Tobacco use Status Tobacco use date assessed 12/10/24 12/10/24 09:23 Patient Tobacco Use Status Current everyday Tobacco 12/10/24 09:22 Tobacco use type Cigarette 12/10/24 09:22 e-Cigarette/Vaping Use Never Used 12/10/24 09:22 Depression Screening Interpretation: Negative Thrive Assessment: Date of Thrive Assessment Date Thrive assessed 08/02/24 12/10/24 09:16 Currently or been in a relationship where the following occur: I choose not to answer Const General: no acute distress and alert HENMT Ears: TM's normal bilaterally and EAC's normal Throat: Yes posterior oropharynx normal and Yes tonsils normal (no TP congestion) Neck Neck: Yes supple and No lymphadenopathy Thyroid: Thyroid normal Resp Auscultation: no crackles, no rales, rhonchi (scattered) throughout, no wheezes and diminished lung sounds (slightly) bilateral Cardio Rate: regular rate Rhythm: regular rhythm Heart sounds: no murmurs GI Palpation (GI): Soft to palpation and nontender Auscultation: normal bowel sounds General: Yes no CVA tenderness Back/Spine/Pelvis Back: no CVA tenderness Thoracic/Lumbar Spine: lumbar spinal tenderness (mild) Skin Rashes: no rashes Extrem General: Yes no clubbing, cyanosis or edema Right upper extremity: shoulder/upper arm Details: tenderness (mild) Location: of the A-C joint Results Reviewed Results Reviewed: Laboratory Tests 12/07/24 12/07/24 07:33 07:39 WBC 6.2 Hgb 14.6 Hct 44.1 Plt Count 253 Sodium 143 Potassium 3.9 Creatinine 0.67 Fasting Glucose 102 H Hemoglobin A1c % 5.4 Calcium 9.2 AST 29 ALT 22 Triglycerides 86 Cholesterol 136 LDL Cholesterol, Calc 75 HDL Cholesterol 44 Ur Specific Corn 1.020 Urine Protein 30 (1+) H Urine Glucose (UA) Negative Urine Blood Moderate (2+) H Urine Nitrite Negative Ur Leukocyte Esterase Small (1+) H Coding Level of Care Code Est Pt Level 4 (29916) Diagnoses Pure hypercholesterolemia E78.00 Chronic obstructive pulmonary disease, unspecified COPD type J44.9 COPD type: unspecified COPD Pulmonary nodules R91.8 Vitamin D deficiency E55.9 Degeneration of intervertebral disc of lumbar region with discogenic back pain M51.360 Disc-related pain type: discogenic back pain only Arthritis of right shoulder region M19.011 Age-related osteoporosis without current pathological fracture M81.0 Osteoporosis type: age-related Presence of current pathological fracture: without current pathological fracture Restless legs syndrome (RLS) G25.81 Insomnia, unspecified type G47.00 Insomnia type: unspecified Anxiety F41.9 Episode of recurrent major depressive disorder, unspecified depression episode severity F33.9 Active/Remission status: currently active Major depression episode severity: unspecified Smoker F17.200 Assessment & Plan Assessment & Plan (1) Pure hypercholesterolemia: Code(s): E78.00 - Pure hypercholesterolemia, unspecified Category: Medical Plan: Results of her labs done last a few days ago reviewed and discussed with patient Reinforced low cholesterol diet Continue Simvastatin 10 mg Q HS Will recheck her labs and fasting lipids in 4 months for follow up (2) COPD (chronic obstructive pulmonary disease): Code(s): J44.9 - Chronic obstructive pulmonary disease, unspecified Category: Medical Qualifiers: COPD type: unspecified COPD Qualified Code(s): J44.9 - Chronic obstructive pulmonary disease, unspecified Plan: Better controlled lately Continue Stiolto Respimat 2.5-2.5 mcg 2 inhalations QD, Yupelri 175 mcg via inhalation QD and Albuterol HFA 1 to 2 inhalations Q 6 hours PRN (she could not tolerate the side effects from Theophylline) Follow up with pulmonary as scheduled (3) Pulmonary nodules: Code(s): R91.8 - Other nonspecific abnormal finding of lung field Category: Medical Plan: These were stable on most recent chest CT in May 2024 She was advised to continue annual screening with low dose chest CT in 12 months Follow up with pulmonary as scheduled (4) Vitamin D deficiency: Code(s): E55.9 - Vitamin D deficiency, unspecified Category: Medical Plan: Continue Vitamin D3 2000 units QD (5) Lumbar degenerative disc disease: Code(s): M51.36 - Other intervertebral disc degeneration, lumbar region Category: Medical Qualifiers: Disc-related pain type: discogenic back pain only Qualified Code(s): M51.360 - Other intervertebral disc degeneration, lumbar region with discogenic back pain only Plan: Reinforced activity and weight-lifting restrictions to avoid aggravating her low back pain Continue Tizanidine 4 mg TID PRN (6) Arthritis of right shoulder region: Code(s): M19.011 - Primary osteoarthritis, right shoulder Category: Medical Plan: X-rays of the right shoulder done a couple of years ago revealed (+) AC arthritis changes She is advised to continue with the shoulder exercises that she was previously taught to help manage her shoulder symptoms Have advised patient again of the option of physical therapy referral if needed - patient states that she has to shell out a large co-pay every time she goes to physical therapy and she would like to hold off on doing this for now unless it is absolutely necessary Can also consider referral to orthopedics if her shoulder pain progresses or gets worse (7) Osteoporosis: Code(s): M81.0 - Age-related osteoporosis without current pathological fracture Category: Medical Qualifiers: Osteoporosis type: age-related Presence of current pathological fracture: without current pathological fracture Qualified Code(s): M81.0 - Age- related osteoporosis without current pathological fracture Plan: Repeat BMD done in July 2021 revealed a further decline in her BMD from previous (-10.7% decline in the lumbar spine and a -17% decline in the femur) - lowest T- score value was then at -4.4 BMD done back on 06/29/2017 showed (+) osteoporosis with lowest T score of -3.7, with a 6.2% decrease from previous BMD in AP spine and 17.3% decrease from previous BMD in the left femur Fall precautions reinforced but patient is encouraged again to continue to stay active and exercise regularly Continue Vitamin D and Calcium supplements daily - will consider repeat BMD for follow up later this year Discussed again consideration for referral to endocrinology for further management and Rx - patient would like to still hold off on this for now as she states that her is retiring soon and she will be changing her health insurance because of this (8) Restless legs syndrome (RLS): Code(s): G25.81 - Restless legs syndrome Category: Medical Plan: Continue Ropinirole 0.5 mg Q HS - Rx refilled (9) Insomnia: Code(s): G47.00 - Insomnia, unspecified Category: Medical Qualifiers: Insomnia type: unspecified Qualified Code(s): G47.00 - Insomnia, unspecified Plan: Sleep hygiene reinforced Continue Trazodone 50 mg Q HS PRN (10) Anxiety: Code(s): F41.9 - Anxiety disorder, unspecified Category: Medical Plan: Controlled on her current Rx (Citalopram) (11) Major depression, recurrent: Code(s): F33.9 - Major depressive disorder, recurrent, unspecified Category: Medical Qualifiers: Active/Remission status: currently active Major depression episode severity: unspecified Qualified Code(s): F33.9 - Major depressive disorder, recurrent, unspecified Plan: Continue Citalopram 10 mg QD - states that she is doing well on her current Rx (12) Smoker: Code(s): F17.200 - Nicotine dependence, unspecified, uncomplicated Category: Social Hx Plan: Patient is counseled again on complete smoking cessation Plan Follow up in 4 months Orders: Orders Comprehensive Ronceverte. Panel Fast 4 Months E78.00 - Pure hypercholesterolemia, unspecified Lipid Panel 4 Months E78.00 - Pure hypercholesterolemia, unspecified UA CC w/rflx Micro + Cult 4 Months R30.0 - Dysuria Vitamin D 25-OH Total 4 Months E55.9 - Vitamin D deficiency, unspecified Vitamin B12 and Folate 4 Months E53.8 - Deficiency of other specified B group vitamins Complete Blood Count Auto Diff 4 Months D64.9 - Anemia, unspecified TSH reflex Free T4 4 Months E78.00 - Pure hypercholesterolemia, unspecified Medications: Refilled tiotropium-olodaterol 2.5-2.5 mcg/actuation (Stiolto Respimat) 2 puffs inhalation DAILY 3 inhalers 3RF 90 days J44.9 - Chronic obstructive pulmonary disease, unspecified ropinirole 0.5 mg PO BEDTIME 90 tabs 1RF 90 days G25.81 - Restless legs syndrome
[2024-12-10 09:17] VITALS: BP 114/68; PULSE 91; TEMP 36.3; O2SAT 94; BMI 17.0
== END 2024-12-10 10:08 | disposition home or self-care (01) ==
LOC: HO.HMCH 08:54
PROVIDERS: PCP Internal Medicine; Visit Provider Internal Medicine
DX: E78.00 Pure hypercholesterolemia, unspecified (principal); J44.9 Chronic obstructive pulmonary disease, unspecified; R91.8 Other nonspecific abnormal finding of lung field; E55.9 Vitamin D deficiency, unspecified; M51.360 Other intervertebral disc degeneration, lumbar region with discogenic back pain only; M19.011 Primary osteoarthritis, right shoulder; M81.0 Age-related osteoporosis without current pathological fracture; G25.81 Restless legs syndrome; G47.00 Insomnia, unspecified; F41.9 Anxiety disorder, unspecified; F33.9 Major depressive disorder, recurrent, unspecified; F17.200 Nicotine dependence, unspecified, uncomplicated

== ENCOUNTER → 2024-12-10 08:53 | Outpatient (BNVA) | payer BC, MEDICARE, SELFPAY | PROVIDERS: PCP Internal Medicine; Visit Provider Internal Medicine | DX: M51.360 Other intervertebral disc degeneration, lumbar region with discogenic back pain only (principal); E78.00 Pure hypercholesterolemia, unspecified; E78.5 Hyperlipidemia, unspecified; J44.9 Chronic obstructive pulmonary disease, unspecified; R91.8 Other nonspecific abnormal finding of lung field; E55.9 Vitamin D deficiency, unspecified; M19.011 Primary osteoarthritis, right shoulder; M81.0 Age-related osteoporosis without current pathological fracture; G25.81 Restless legs syndrome; G47.00 Insomnia, unspecified; F41.9 Anxiety disorder, unspecified; F33.9 Major depressive disorder, recurrent, unspecified; R30.0 Dysuria; E53.8 Deficiency of other specified B group vitamins; D64.9 Anemia, unspecified; F17.210 Nicotine dependence, cigarettes, uncomplicated | CPT/HCPCS: 99212 ==

== ENCOUNTER 2024-12-31 09:20 | Outpatient (AMB) | payer BC, MEDICARE, SELFPAY ==
--- NOTE | 2024-12-31 09:22 | A.OFFVIS_ITS ---
Vital Signs 12/31/24 09:23 Height 4 ft 11 in Weight 79 lb BMI 16.0 BP 92/58 L Blood Pressure Location Lt brachial Position Sitting Pulse 105 H Pulse Source Pulse Oximeter Pulse Oximetry (%) 95 Oxygen Delivery Method Room Air Intake Visit Reasons: COPD Allergies aspirin (Aspirin) Allergy (Unknown, Verified 12/31/24 09:29) RASH diphenhydramine (From Benadryl) Allergy (Unknown, Verified 12/31/24:) Unknown iron (Iron) Allergy (Unknown, Verified 12/31/24:) VAGINAL INFECTION menthol (From Antihistamine) Allergy (Unknown, Verified 12/31/24:) DIFF BREATHING penicillin V Allergy (Unknown, Verified 12/31/24) hives Penicillins Allergy (Unknown, Verified 12/31/24) Hives Sulfa (Sulfonamide Antibiotics) Allergy (Unknown, Verified 12/31/24:) RASH ciprofloxacin Adverse Reaction (Severe, Verified 12/31/24) Headache HPI HPI COPD: Details: 74-year-old lady, active 60+ pack-year smoker followed for underlying moderate COPD.? She has been using Stiolto and albuterol MDI with reasonable control of her symptoms. She has tried theophylline, however, she was not able to tolerate it secondary to GI side effects. After the last office visit she was started on Yupelri now with significantly improved symptom control. She denies acute exacerbations. [facility] [place] Medical History Insomnia Hemoptysis Osteoporosis Smoker Major depression, recurrent Anxiety Lumbar degenerative disc disease Vitamin D deficiency Pure hypercholesterolemia COPD (chronic obstructive pulmonary disease) Restless legs syndrome (RLS) Vertigo Surgical History History of colonoscopy (~12/1999) History of breast surgery Family History Father Elika-Kbsiu-Lpsez syndrome Mother Hypertension Paternal Aunt Whtsy-Ybygu-Jwtqw syndrome Social History (Updated 12/10/24 @ 09:22 by JEY Reis) Housing: House Alcohol intake: never Patient Tobacco Use Status: Current everyday Tobacco user Tobacco use type: Cigarette Cigarette Packs Per Day: 0.5 Cigarettes Per Day: 8 e-Cigarette/Vaping Use: Never Used Second Hand Smoke Exposure: Yes service: No Current occupational status: retired Cognitive needs: No Hearing needs: No Vision needs: Yes Review of Systems Const Denies daytime sleepiness, Denies excessive sweating, Denies fatigue, Denies fever(s), Denies lethargy, Denies malaise, Denies night sweats, Denies snoring and Denies weight loss Eyes Denies blurry vision and Denies itchy eyes ENT Denies nasal congestion, Denies post nasal drip, Denies sinus pain, Denies sinus pressure and Denies other ( Thrush) Card Denies chest pain, Denies pedal edema, Denies dyspnea, Denies orthopnea and Denies paroxysmal nocturnal dyspnea Resp Denies cough, Denies hemoptysis, Denies excessive phlegm production, Denies dyspnea, Denies snoring and Denies wheezing GI Denies abdominal pain and Denies heartburn Musc Denies myalgias, Denies arthralgias and Denies joint swelling Skin/Breast Denies rash Neuro Denies memory loss and Denies seizure-like activity Psych Denies abnormal sleep pattern, Denies anxiety and Denies memory loss Endo Denies excessive sweating, Denies fatigue and Denies heat intolerance Mack/Lymph Denies easy bruising Aller/Immun Denies itchy eyes, Denies seasonal rhinorrhea and Denies wheezing Physical Exam Vital Signs: Last Vital Signs Pulse 105 H 12/31/24 09:23 BP 92/58 L 12/31/24 09:23 Pulse Ox 95 12/31/24 09:23 Oxygen Delivery Method Room Air 12/31/24 09:23 BMI result Body Mass Index 16.0 Const General: no acute distress and alert Nutritional Appearance: not obese Orientation/consciousness: Other orientation findings ( oriented) HEENT Head: Yes atraumatic Eyes General: appearance normal, both eyes and all related structures Sclerae: sclerae normal EOM: EOMs intact bilaterally Neck Neck: Yes supple Lymphatic: no lymphadenopathy noted Resp Effort & Inspection: normal respiratory effort and no use of accessory muscles Auscultation: clear to auscultation bilaterally Cardio Rate: regular rate Rhythm: regular rhythm Heart sounds: no gallops, no murmurs and no rubs Skin General skin exam: other ( warm) Extrem General: No clubbing, No cyanosis and No edema Assessment & Plan Assessment & Plan (1) COPD (chronic obstructive pulmonary disease): Code(s): J44.9 - Chronic obstructive pulmonary disease, unspecified Category: Medical Qualifiers: COPD type: unspecified COPD Qualified Code(s): J44.9 - Chronic obstructive pulmonary disease, unspecified Plan: Now with improved control after starting on Yupelri. Continue Yupelri, Stiolto, and albuterol MDI. (2) Personal history of nicotine dependence: Code(s): Z87.891 - Personal history of nicotine dependence Category: Medical Plan: Results of lung cancer screening CT chest from May of 2024 reviewed, no worrisome nodules. Continue with yearly screening, next in May of 2025. Coding Level of Care Code Est Pt Level 4 (94893) Diagnoses Chronic obstructive pulmonary disease, unspecified COPD type J44.9 COPD type: unspecified COPD Personal history of nicotine dependence Z87.891
[2024-12-31 09:23] VITALS: BP 92/58; PULSE 105; O2SAT 95; BMI 16.0
== END 2024-12-31 09:40 | disposition home or self-care (01) ==
PROVIDERS: PCP Internal Medicine; Visit Provider Internal Medicine Pulmonary Disease
DX: J44.9 Chronic obstructive pulmonary disease, unspecified (principal); Z87.891 Personal history of nicotine dependence
CPT/HCPCS: 99214

== ENCOUNTER 2025-01-25 08:35 | Emergency (ER) | payer BC, MEDICARE, SELFPAY ==
[2025-01-25 08:48] VITALS: BP 130/55; PULSE 102; RESP 18; TEMP 36.4; O2SAT 95; BMI 16.5
--- NOTE | 2025-01-25 08:53 | ECG_ITS ---
Test Reason : UPPER ABD PAIN, N/V Blood Pressure : */* mmHG Vent. Rate : 87 BPM Atrial Rate : 87 BPM P-R Int : 132 ms QRS Dur : 72 ms QT Int : 350 ms P-R-T Axes : 85 69 73 degrees QTcB Int : 421 ms Normal sinus rhythm Normal ECG When compared with ECG of 13-Oct-2020 22:10, Premature ventricular complexes are no longer Present Referred By: Generic ED Physician Electronically Signed By: Yeyo Ivy
--- NOTE | 2025-01-25 09:08 | ED_ITS ---
HPI - General Adult General Chief complaint: Abdominal Pain Stated complaint: Nausea with stomach pain x 4 days, congested Time Seen by Provider: 01/25/25 09:08 Source: patient, family, RN notes reviewed and old records reviewed Mode of arrival: ambulatory Limitations: no limitations History of Present Illness ED Provider: Justen HPI narrative: Patient is a 74-year-old female with history of COPD, smoking, hypercholesterolemia presenting to the emergency department with complaint of epigastric abdominal pain as well as diarrhea and nausea. States symptoms began with diarrhea on Saturday or and reports that her diarrhea has since resolved. She complains of ongoing nausea and epigastric pain. States that her nausea somewhat improved after eating but then returns. Denies any vomiting. Denies any hematochezia or melena. Denies fevers. Denies known sick contacts. MD complaint: abdominal pain Onset (ago): day(s) Related Data Previous Rx's ?Medication ?Instructions ?Recorded betamethasone dipropionate 0.05 % 1 appl topical BID P RN skin 03/14/21 topical cream irritation #45 grams acetaminophen 325 mg tablet 650 mg (2 x 325 mg) PO Q6H PRN 05/31/21 (Tylenol) pain #30 tabs meclizine 25 mg tablet 25 mg PO DAILY PRN for dizzi ness 11/24/21 #30 tabs mometasone 0.1 % topical cream 1 appl topical DAILY VA N rash #45 03/14/23 grams trazodone 50 mg tablet 50 mg PO BEDTIME PRN insomni a 30 04/03/23 days #30 tabs cholecalciferol (vitamin D3) 50 50 mcg PO DAILY #90 ca ps 08/09/23 mcg (2,000 unit) capsule albuterol sulfate 90 mcg/actuation 2 puff inhalation Q 4-6H PRN 12/18/23 aerosol inhaler shortness of breath or wheez ing #1 ea albuterol sulfate 2.5 mg/3 mL 2.5 mg (3 mL) continuous 04/07/24 (0.083 %) solution for nebulization nebulization Q6H P RN shortness of breath or wheezing 30 days #360 mL revefenacin 175 mcg/3 mL solution 175 mcg (3 mL) inhal ation DAILY 10/06/24 for nebulization (Yupelri) #90 mL citalopram 10 mg tablet 10 mg PO DAILY #90 tabs / 0 simvastatin 10 mg tablet 10 mg PO DAILY 90 days #90 t abs 11/14/24 ropinirole 0.5 mg tablet 0.5 mg PO BEDTIME 90 days #9 0 tabs 12/10/24 tiotropium 2.5 mcg-olodaterol 2.5 2 puff inhalation DA PEACE 90 days #3 12/10/24 mcg/actuation mist for inhalation inhalers (Stiolto Respimat) ondansetron 4 mg disintegrating 4 mg PO Q8H PRN nausea and 01/25/25 tablet vomiting #10 tabs Allergies Allergy/AdvReac Type Severity Reaction Status Date / Time aspirin (Aspirin) Allergy Unknown RASH Verified 01/25/25 08:53 diphenhydramine (From Allergy Unknown Unknown Verified 01/25/25 08:53 Benadryl) iron (Iron) Allergy Unknown VAGINAL Verified 01/25/25 08:53 INFECTION menthol (From Antihistamine) Allergy Unknown DIFF Verified 01/25/25 08:53 BREATHING penicillin V Allergy Unknown hives Verified 01/25/25 08:53 Penicillins Allergy Unknown Hives Verified 01/25/25 08:53 Sulfa (Sulfonamide Allergy Unknown RASH Verified 01/25/25 08:53 Antibiotics) ciprofloxacin AdvReac Severe Headache Verified 01/25/25 08:53 Review of Systems 2 Review of Systems: As per HPI Yes all other systems are reviewed and are negative Constitutional: Constitutional: Reports as per HPI PMFSH Past Medical History Medical History Insomnia Hemoptysis Osteoporosis Smoker Major depression, recurrent Anxiety Lumbar degenerative disc disease Vitamin D deficiency Pure hypercholesterolemia COPD (chronic obstructive pulmonary disease) Restless legs syndrome (RLS) Vertigo Surgical History History of colonoscopy (~12/1999) History of breast surgery Family History Family History Father Deezl-Gxknn-Hygoe syndrome Mother Hypertension Paternal Aunt Aacxj-Endsd-Zwozp syndrome Social History Social History (Updated 12/10/24 @ 09:22 by JEY Reis) Housing: House Alcohol intake: never Patient Tobacco Use Status: Current everyday Tobacco user Tobacco use type: Cigarette Cigarette Packs Per Day: 0.5 Cigarettes Per Day: 8 e-Cigarette/Vaping Use: Never Used Second Hand Smoke Exposure: Yes Advance Directives: No Advance Directives Information Provided: No service: No Current occupational status: retired Cognitive needs: No Hearing needs: No Vision needs: Yes Physical Exam ED Vital Signs: Vital Signs - 24 hr 01/25/25 08:48 01/25/25 11:01 Temperature 97.6 F 98.0 F Pulse Rate 102 H 81 Respiratory Rate 18 18 Blood Pressure 130/55 L 128/63 Pulse Oximetry 95 96 Oxygen Delivery Method Room Air Room Air BMI result Body Mass Index 16.5 Vital signs have been reviewed and appear to be correct. Blood pressure normal. Heart rate slightly tachycardic. Respiratory rate normal. Temperature normal. Oxygen saturation normal. Const General: cooperative, healthy appearing and no acute distress Orientation/consciousness: oriented to person, oriented to place, oriented to time and patient oriented x3 Limitations: no limitations HENMT Head: Yes normocephalic and Yes atraumatic Ears: external ears normal General nose exam: Normal external nose present Face and sinus: Yes face symmetric Mouth: oropharynx normal and moist mucous membranes Throat: Yes uvula midline Eyes Pupils: Equal, round and reactive pupils present Neck Neck: Yes normal visual inspection and Yes supple Resp Effort & Inspection: normal respiratory effort and able to speak in complete sentences Auscultation: clear to auscultation bilaterally Cardio Rate: regular rate Rhythm: regular rhythm Heart sounds: S1 normal heart sound present and S2 normal heart sound present GI Palpation (GI): Soft to palpation and Tenderness to palpation present (GI) in the epigastrum (mild) Auscultation: normoactive bowel sounds General: Yes no CVA tenderness Back/Spine/Pelvis Back: no CVA tenderness Skin General skin exam: elasticity normal and turgor normal Neuro General: oriented to person, oriented to place, oriented to time, patient oriented x3, moves all extremities, no focal motor deficits and CN's II-XI intact bilaterally Cranial nerves: Yes Equal, round and reactive pupils present Cognition (Neuro): normal cognition Extrem General: Yes full ROM, Yes no pedal edema and Yes no calf tenderness Psych Mental Status: mental status grossly normal Affect: normal affect Thought process: Normal thought process present Medications Administered Discontinued Medications Generic Name Dose Route Start Last Admin Trade Name Danna PRN Reason Stop Dose Admin Al Hydroxide/Mg Hydroxide 30 ml 01/25/25 09:59 01/25/25 10:42 Magnesium Hydrox/Alum Hydrox 30 Ml Oral.Susp PO 01/25/25 10:00 30 ml ONCE ONE Administration Famotidine 20 mg 01/25/25 09:59 01/25/25 10:42 Famotidine/Pf 20 Mg/2 Ml Vial IVPUSH 01/25/25 10:00 20 mg ONCE ONE Administration Sodium Chloride 500 mls @ 500 mls/hr 01/25/25 10:00 01/25/25 11:42 Ns IV 01/25/25 10:59 Infused .Q1H CHRIS Infusion Lidocaine HCl 15 ml 01/25/25 09:59 01/25/25 10:42 Lidocaine Hcl Viscous 2 % 15 Ml Solution MUCOUS MEM 01/25/25 10:00 15 ml ONCE ONE Administration Ondansetron HCl 4 mg 01/25/25 10:01 01/25/25 10:42 Ondansetron Hcl 4 Mg/2 Ml Vial IVPUSH 01/25/25 10:02 4 mg ONCE ONE Administration Medical Decision Making Medical Decision Making [facility] Narrative: Patient is a 74-year-old female with history of COPD, smoking, hypercholesterolemia presenting to the emergency department with complaint of epigastric abdominal pain as well as diarrhea and nausea. On exam patient is awake, A+Ox3, VS WNL, afebrile, normal neurological exam without focal deficits, physical exam findings as above. Given reported symptoms and physical exam findings, initial differential includes but is not limited to gastroenteritis, electrolyte abnormality, dehydration, viral illness, COVID, flu. Labs notable for no leukocytosis, no anemia, no significant electrolyte abnormalities. Viral serology negative. Patient medicated with famotidine, Zofran, IV fluids and GI cocktail in the ED with significant improvement in symptoms. Discussed with patient that symptoms likely due to viral illness and should slowly resolve. Advised her to stick to a bland diet until symptoms improve. Will send prescription for Zofran. Advised follow up with PCP as needed. Return precautions discussed. Patient verbalized understanding of and agreement with plan. Differential Diagnosis Differential Diagnoses: The differential diagnosis associated with the presentation includes As per MDM Admission/Observation Consideration of admission/observation: Escalation of care including admission/observation considered Patient would have been admitted to the hospital and transferred to appropriate facility had their clinical presentation warranted hospital admission. Lab Data [facility] Lab Attestation statement: I reviewed the patient's lab results. as per [facility] 01/25/25 09:14 01/25/25 09:14 Labs: Lab Results 01/25/25 01/25/25 Range/Units 09:14 09:49 WBC 7.0 (4.8-10.8) X10*3/uL RBC 4.32 (4.20-5.50) X10*6/uL Hgb 14.4 (12.0-16.0) g/dl Hct 43.9 (37.0-47.0) % MCV 101.6 H (80.0-98.0) fL MCH 33.3 H (27.0-33.0) pg MCHC 32.8 (31.0-35.0) g/dl RDW 11.9 (11.0-16.0) % Plt Count 233 (160-400) X10*3/uL MPV 9.0 L (9.4-12.3) fL Immature Gran % (Auto) 0.3 (0.0-0.4) % Neut % (Auto) 58.3 (45-73) % Lymph % (Auto) 35.1 (20-40) % [place] % (Auto) 5.3 (2-11) % Eos % (Auto) 0.7 (0-4) % Baso % (Auto) 0.3 (0-2) % Lymph # (Auto) 2.5 (1.2-4.9) X10*3/uL [place] # (Auto) 0.4 (0.1-1.2) X10*3/uL Eos # (Auto) 0.1 (0.0-0.4) X10*3/uL Baso # (Auto) 0.0 (0.0-0.2) X10*3/uL Abs Immat Gran (auto) 0.02 (0.00-0.03) X10*3/uL Absolute Neuts (auto) 4.1 (2.0-8.3) x10*3/uL Absolute Nucleated RBC 0.000 (0.0-0.012) X10*3/uL Nucleated RBC % (auto) 0.0 (0.0-0.2) /100WBC Sodium 142 (135-145) mmol/L Potassium 3.7 (3.3-5.1) mmol/L Chloride 107 (96-108) mmol/L Carbon Dioxide 30 H (22-29) mmol/L Anion Gap 9 L (12-20) BUN 11 (9-16) mg/dL Creatinine 0.59 (0.5-1.4) mg/dL Estim Creat Clear Calc 49.6 Estimated GFR > 60 Random Glucose 129 H (60-115) mg/dL Calcium 9.0 (8.4-10.2) mg/dL Magnesium 2.1 (1.6-2.6) mg/dL Total Bilirubin 0.3 (0.0-1.0) mg/dL Direct Bilirubin 0.1 (0.0-0.5) mg/dL AST 27 (5-31) U/L ALT 24 (0-31) U/L Alkaline Phosphatase 133 H (39-117) U/L Total Protein 6.6 (6.5-8.0) g/dL Albumin 4.3 (3.5-5.0) g/dL Lipase 16 (8-78) U/L COVID-19 ([facility]) Negative (Negative) COVID-19 Clin Com See Note Influenza Type A ([facility]ORDO) Negative (Negative) Influenza Type B ([facility]) Negative (Negative) Influenza A & B Note See Note External Record Review External record reviewed: Inpatient record, Office record and Outpatient record Prescription Management I considered prescription management with: Other Discharge Plan Discharge Clinical Impression: Gastroenteritis Patient Disposition: Home, Self-Care Instructions: Gastroenteritis (DC), Acute Nausea and Vomiting (DC), Acute Diarrhea (ED) Additional Instructions: You have been evaluated in the emergency department today for nausea, vomiting, and diarrhea. Your evaluation suggests that your symptoms are most likely due to a viral illness which will improve on it's own with rest and fluids. Remember to drink plenty of fluids at home. You are being prescribed ondansetron which you can use as per the prescription instructions for nausea. Please follow up with your primary care provider within two days. Return to the emergency department if you experience worsening or uncontrolled pain, inability to tolerate fluids by mouth, difficulty breathing, fevers 100.4? F or greater, recurrent vomiting, or any other concerning symptoms. Prescriptions: New ondansetron 4 mg tablet,disintegrating 4 mg PO Q8H PRN (Reason: nausea and vomiting) Qty: 10 0RF No Action trazodone 50 mg tablet 50 mg PO BEDTIME PRN (Reason: insomnia) 30 Days Qty: 30 2RF cholecalciferol (vitamin D3) 50 mcg (2,000 unit) capsule 50 mcg PO DAILY Qty: 90 3RF citalopram 10 mg tablet 10 mg PO DAILY Qty: 90 1RF simvastatin 10 mg tablet 10 mg PO DAILY 90 Days Qty: 90 1RF betamethasone dipropionate 0.05 % cream 1 appl topical BID PRN (Reason: skin irritation) Qty: 45 2RF acetaminophen [Tylenol] 325 mg tablet 650 mg PO Q6H PRN (Reason: pain) Qty: 30 0RF mometasone 0.1 % cream 1 appl topical DAILY PRN (Reason: rash) Qty: 45 5RF meclizine 25 mg tablet 25 mg PO DAILY PRN (Reason: for dizziness) Qty: 30 1RF Stiolto Respimat 2.5-2.5 mcg/actuation mist 2 puff inhalation DAILY 90 Days Qty: 3 3RF ropinirole 0.5 mg tablet 0.5 mg PO BEDTIME 90 Days Qty: 90 1RF albuterol sulfate 90 mcg/actuation HFA aerosol inhaler 2 puff inhalation Q4-6H PRN (Reason: shortness of breath or wheezing) Qty: 1 6RF albuterol sulfate 2.5 mg /3 mL (0.083 %) solution for nebulization 2.5 mg continuous nebulization Q6H PRN (Reason: shortness of breath or wheezing) 30 Days Qty: 360 5RF Yupelri 175 mcg/3 mL solution for nebulization 175 mcg inhalation DAILY Qty: 90 6RF Print Language: French
[2025-01-25 09:19] LABS: MANUAL DIFF FLAG NO
[2025-01-25 09:21] LABS: Hematocrit 43.9 % (37.0-47.0); Hemoglobin 14.4 g/dl (12.0-16.0); Imm Gran Abs Auto 0.02 X10*3/uL (0.00-0.03); Imm Gran Pct Auto 0.3 % (0.0-0.4); Lymphocytes Absolute Auto 2.5 X10*3/uL (1.2-4.9); Mean Corpuscular HGB Conc 32.8 g/dl (31.0-35.0); Mean Corpuscular Hemoglobin 33.3 pg (27.0-33.0); Mean Corpuscular Volume 101.6 fL (80.0-98.0); NRBC Abs Auto 0.000 X10*3/uL (0.0-0.012); NRBC Pct Auto 0.0 /100WBC (0.0-0.2); Platelet Count 233 X10*3/uL (160-400); Red Blood Count 4.32 X10*6/uL (4.20-5.50); White Blood Count 7.0 X10*3/uL (4.8-10.8)
--- NOTE | 2025-01-25 09:27 | PC.NURSE ---
20g IV access established to left AC. Labs drawn and sent for analysis, results pending. EKG obtained at 9:20am and reviewed by unremarkable. Justen Wheat NP to evaluate the patient shortly. Care ongoing by this RN.
[2025-01-25 09:39] LABS: Alanine Aminotransferase 24 U/L (0-31); Albumin Level 4.3 g/dL (3.5-5.0); Alkaline Phosphatase 133 U/L (39-117); Anion Gap 9 (12-20); Aspartate Amino Transferase 27 U/L (5-31); Blood Urea Nitrogen 11 mg/dL (9-16); Calcium 9.0 mg/dL (8.4-10.2); Carbon Dioxide 30 mmol/L (22-29); Chloride 107 mmol/L (96-108); Creatinine Clr Calc Pharmacy 49.6; Estimated Glomerular Filt Rate > 60; Lipase 16 U/L (8-78); Potassium 3.7 mmol/L (3.3-5.1); Sodium 142 mmol/L (135-145); Total Protein 6.6 g/dL (6.5-8.0)
[2025-01-25 09:55] LABS: Magnesium 2.1 mg/dL (1.6-2.6)
[2025-01-25 10:15] LABS: COVID-19 Test Negative (Negative); IDNOW Serial# 55D5AD1C; IDNOW Serial# 58CA691E; Influenza B2 Negative (Negative)
[2025-01-25] MEDS: Lidocaine HCl Viscous 2 % 15 ML SOLUTION MUCOUS MEM (10:42)
[2025-01-25] MEDS: Magnesium Hydrox/Alum Hydrox 30 ML ORAL.SUSP PO (10:42)
[2025-01-25 11:01] VITALS: BP 128/63; PULSE 81; RESP 18; TEMP 36.7; O2SAT 96
[2025-01-25 12:16] VITALS: BP 128/63; PULSE 81; RESP 18; TEMP 36.7; O2SAT 96
== END 2025-01-25 12:16 | disposition home or self-care (01) ==
PROVIDERS: Registered Nurse Emergency; Emergency Provider Emergency Medicine; PCP Internal Medicine
DX: K52.9 Noninfective gastroenteritis and colitis, unspecified (principal); J44.9 Chronic obstructive pulmonary disease, unspecified; Z72.0 Tobacco use; Z79.899 Other long term (current) drug therapy; Z11.52 Encounter for screening for COVID-19
CPT/HCPCS: 36415; 80053; 82248; 83690; 83735; 85025; 87502; 87635; 93005; 96361; 96374; 96375; 99284; J1308; J2405

== ENCOUNTER → 2025-01-25 08:53 | Outpatient (BNV) | payer BC, MEDICARE, SELFPAY | PROVIDERS: Emergency Provider Emergency Medicine; PCP Internal Medicine; Visit Provider Internal Medicine Cardiovascular Disease | DX: R10.10 Upper abdominal pain, unspecified (principal); R11.2 Nausea with vomiting, unspecified | CPT/HCPCS: 93010 ==

== ENCOUNTER 2025-01-29 15:18 | Outpatient (AMB) | payer BC, MEDICARE, SELFPAY ==
[2025-01-29 15:34] VITALS: BP 130/82; PULSE 88; O2SAT 94; BMI 16.6
--- NOTE | 2025-01-29 15:34 | A.OFFPC_ITS ---
Vital Signs 01/29/25 15:34 Height 4 ft 11 in Weight 82 lb 2 oz BMI 16.6 BP 130/82 Blood Pressure Location Lt brachial Position Sitting Pulse 88 Pulse Source Pulse Oximeter Pulse Oximetry (%) 94 Oxygen Delivery Method Room Air Intake Visit Reasons: [facility] 01/25 Nausea with stomach pain x 4 days, conges Angiographer Required: No Accompanied by: Self / Same As Patient Allergies aspirin (Aspirin) Allergy (Unknown, Verified 01/29/25 15:58) RASH diphenhydramine (From Benadryl) Allergy (Unknown, Verified 01/29/25 15:58) Unknown iron (Iron) Allergy (Unknown, Verified 01/29/25 15:58) VAGINAL INFECTION menthol (From Antihistamine) Allergy (Unknown, Verified 01/29/25 15:58) DIFF BREATHING penicillin V Allergy (Unknown, Verified 01/29/25 15:58) hives Penicillins Allergy (Unknown, Verified 01/29/25 15:58) Hives Sulfa (Sulfonamide Antibiotics) Allergy (Unknown, Verified 01/29/25 15:58) RASH ciprofloxacin Adverse Reaction (Severe, Verified 01/29/25 15:58) Headache Medication List - Last Reconciled 01/29/25 by Jason Bansal MD acetaminophen (Tylenol) 650 mg (2 x 325 mg) PO Q6H PRN albuterol sulfate 90 mcg/actuation 2 puffs inhalation Q4-6H PRN albuterol sulfate 2.5 mg (3 mL) continuous nebulization Q6H PRN 30 days betamethasone dipropionate 0.05% 1 appl topical BID PRN cholecalciferol (vitamin D3) 50 mcg PO DAILY citalopram 10 mg PO DAILY meclizine 25 mg PO DAILY PRN mometasone 0.1% 1 appl topical DAILY PRN ondansetron 4 mg PO Q8H PRN revefenacin (Yupelri) 175 mcg (3 mL) inhalation DAILY ropinirole 0.5 mg PO BEDTIME 90 days simvastatin 10 mg PO DAILY 90 days tiotropium-olodaterol 2.5-2.5 mcg/actuation (Stiolto Respimat) 2 puffs inhalation DAILY 90 days trazodone 50 mg PO BEDTIME PRN 30 days Tobacco use date assessed: 01/29/25 Fall risk assessment: No Falls in past year Last assessed Fall Risk: 01/29/25 Dental Screening Dental Screen Date: 01/29/25 Did you have a dental visit in the last 12 months?: No Did you have a dental problem in the last 6 months where you did not have access to dental care?: No Was dental information given to patient?: No HPI [facility] 01/25 Nausea with stomach pain x 4 days, conges HPI Details Patient comes in today for her HDF follow up visit She went to the ER about 4 days ago for epigastric pain with nausea and vomiting that have been ongoing since last week (about 5 days prior to her presenting to the ER) Lab work ups done in the ER, including viral panels, came back negative She was then started on Ondansetron PRN for symptomatic relief and advised that she likely has gastritis and to follow up with her PCP NIHARIKA Patient states that in addition to her abdominal pain and on and off nausea, she has been experiencing recurrent postprandial diarrhea for the past few days She denies any vomiting Adds that she has been experiencing increased nasal and sinus congestion and on and off headaches for the past few days now and thinks that she may have a sinus infection currently She denies any fever or dizziness Denies any chest pains, no increased SOB but reports that she's had on and off coughing now for the past 2 to 3 days [facility] Medical History Insomnia Hemoptysis Osteoporosis Smoker Major depression, recurrent Anxiety Lumbar degenerative disc disease Vitamin D deficiency Pure hypercholesterolemia COPD (chronic obstructive pulmonary disease) Restless legs syndrome (RLS) Vertigo Surgical History History of colonoscopy (~12/1999) History of breast surgery Family History Father Lgxos-Qnhqx-Qsnxv syndrome Mother Hypertension Paternal Aunt Vtyes-Cjtig-Xvthc syndrome Social History Housing: House Alcohol intake: never Patient Tobacco Use Status: Current everyday Tobacco user Tobacco use type: Cigarette Cigarette Packs Per Day: 0.5 Cigarettes Per Day: 8 e-Cigarette/Vaping Use: Never Used Second Hand Smoke Exposure: Yes service: No Current occupational status: retired Cognitive needs: No Hearing needs: No Vision needs: Yes Questionnaire PHQ-9 Over the last 2 weeks, how often have you been bothered by any of the following problems? 1. Little interest or pleasure in doing things: not at all 2. Feeling down, depressed, or hopeless: not at all 3. Trouble falling or staying asleep, or sleeping too much: not at all 4. Feeling tired or having little energy: not at all 5. Poor appetite or overeating: not at all 6. Feeling bad about yourself - or that you are a failure or have let yourself or your family down: not at all 7. Trouble concentrating on things, such as reading the newspaper or watching television: not at all 8. Moving or speaking so slowly that other people could have noticed. Or the op posite - being so fidgety or restless that you have been moving around a lot more than usual: not at all 9. Thoughts that you would be better off or of hurting yourself in some way: not at all Total score: 0 Depression Screening Interpretation: Negative Depression Screening Done: Yes 62267 - PHQ-9 Billing: Yes Source: Developed by Drs. Elio Valenzuela, Tammy Rosenberg, Jerzy Nicholson and colleagues, with an educational herminio from [employer]. Thrive Questionnaire Date Thrive assessed: 01/29/25 I am a: Patient What is your living situation today?: I have a steady place to live Within the past 12 months, did the food you bought not last and you didn't have the money to get more?: Never true Within the past 12 months, did you worry whether your food would run out before you got money to buy more?: Never true Do you have trouble paying for medicines?: Yes Do you have trouble getting transportation to medical appointments?: No Do you have trouble paying your heating and electricity bill?: No Do you have trouble taking care of your child, family member or friend?: No Do you have trouble with day-to-day activities such as bathing, preparing meals, shopping, managing finances, etc.?: No Are you currently unemployed and looking for a job?: No Are you interested in more education?: No Please select the resources that you would like help with: Paying for medicine Currently or been in a relationship where the following occur: I choose not to answer THRIVE Score: 0 AUDIT C Alcohol Use Questionnaire (AUDIT-C) 1. How often do you have a drink containing alcohol?: Monthly or less 2. How many drinks containing alcohol do you have on a typical day when you are drinking?: 1 or 2 3. How often do you have six or more drinks on one occasion?: Never Total Score: 1 Score Reviewed/Action Taken: Yes KAMI-7 AMB Questionnaire KAMI-7 Date KAMI - 7 assessed: 01/29/25 Feeling nervous, anxious, or on edge: 0 = Not at all Not being able to stop or control worryin = Not at all Worrying too much about different things: 0 = Not at all Trouble relaxin = Not at all Being so restless that it is hard to sit still: 0 = Not at all Becoming easily annoyed or irritable: 0 = Not at all Feeling afraid as if something awful might happen: 0 = Not at all Total KAMI-7 score (0-4 normal; 5-9 mild; 10-14 moderate; 15-21 severe): 0 Source: Developed by Drs. Elio Valenzuela, Tammy Rosenberg, Jerzy Nicholson and colleagues, with an educational herminio from [employer]. Review of Systems Const Denies chills, Reports difficulty sleeping, Reports fatigue, Denies fever(s) and Reports headache(s) (on and off lately) ENT Denies dysphagia, Denies dizziness, Denies otalgia, Reports headache(s) (on and off lately), Reports nasal congestion, Denies neck pain, Denies odynophagia, Reports sinus pain, Reports sinus pressure and Denies sore throat Card Denies chest pain, Denies palpitations and Denies dyspnea Resp Reports chest congestion (mild), Reports cough (on and off), Denies dyspnea and Denies wheezing GI Reports abdominal pain (on and off over the epigastric area), Denies constipation, Denies dysphagia, Denies heartburn, Reports diarrhea (especially postprandial), Reports nausea, Denies odynophagia and Denies vomiting Denies difficulty voiding, Denies nocturia, Denies dysuria and Denies urinary urgency Musc Reports back pain (on and off over the lower back), Denies arthralgias and Denies neck pain Skin/Breast Denies rash Neuro Denies dizziness and Reports headache(s) (on and off lately) Endo Reports fatigue and Denies palpitations Aller/Immun Denies wheezing Physical exam (Primary Care) Vital Signs: Last Vital Signs Pulse 88 01/29/25 15:34 BP 130/82 01/29/25 15:34 Pulse Ox 94 01/29/25 15:34 Oxygen Delivery Method Room Air 01/29/25 15:34 BMI result Body Mass Index 16.6 Tobacco/Smoking Status: Tobacco use Status Tobacco use date assessed 01/29/25 01/29/25 15:36 Patient Tobacco Use Status Current everyday Tobacco 01/29/25 15:36 Tobacco use type Cigarette 01/29/25 15:36 e-Cigarette/Vaping Use Never Used 01/29/25 15:36 PHQ-9: PHQ-9 Score PHQ-9: Total score 0 01/30/25 14:44 Depression Screening Interpretation: Negative Thrive Assessment: Date of Thrive Assessment Date Thrive assessed 01/29/25 01/29/25 15:36 Currently or been in a relationship where the following occur: I choose not to answer Const General: no acute distress and alert HENMT Ears: TM's normal bilaterally and EAC's normal Face and sinus: Yes sinus tenderness Throat: Yes posterior oropharynx normal and Yes tonsils normal (no TP congestion) Neck Neck: Yes supple and No lymphadenopathy Thyroid: Thyroid normal Resp Auscultation: no crackles, no rales, no wheezes and diminished lung sounds (slightly) bilateral Cardio Rate: regular rate Rhythm: regular rhythm Heart sounds: no murmurs GI Palpation (GI): Soft to palpation, Tenderness to palpation present (GI) in the epigastrum and in the RUQ, no guarding, not rigid and No Rebound tenderness present Auscultation: normal bowel sounds General: Yes no CVA tenderness Back/Spine/Pelvis Back: no CVA tenderness Thoracic/Lumbar Spine: lumbar spinal tenderness (mild) Skin Rashes: no rashes Extrem General: Yes no clubbing, cyanosis or edema Right upper extremity: shoulder/upper arm Details: tenderness (mild) Location: of the A-C joint Coding Level of Care Code Est Pt Level 4 (72777) Diagnoses Epigastric pain R10.13 Abdominal location: epigastric Postprandial diarrhea K52.9 Upper respiratory tract infection, unspecified type J06.9 URI type: unspecified URI Additional Codes PHQ-9 - 27074 - PHQ-9 Billing: Yes ([id number]) Assessment & Plan Assessment & Plan (1) Abdominal pain: Code(s): R10.9 - Unspecified abdominal pain Category: Medical Qualifiers: Abdominal location: epigastric Qualified Code(s): R10.13 - Epigastric pain Plan: Have advised patient that her current symptoms may be potentially due to gastritis but may also be due to some gall bladder pathology Will send her for abdominal US NIHARIKA for further evaluation Dietary restrictions discussed Will go ahead and start her on Famotidine 20 mg BID PRN for now Continue Ondansetron 4 mg Q 8 hours PRN for nausea/vomiting - Rx refilled If her abdominal symptoms do not improve with symptomatic Tx, then she may need to be referred to GI for possible EGD (2) Postprandial diarrhea: Code(s): K52.9 - Noninfective gastroenteritis and colitis, unspecified Category: Medical Plan: Discussed with patient that her postprandial diarrhea may be due to some gall bladder pathology and she is being sent for abdominal US for further evaluation (3) Upper respiratory tract infection: Code(s): J06.9 - Acute upper respiratory infection, unspecified Category: Medical Qualifiers: URI type: unspecified URI Qualified Code(s): J06.9 - Acute upper respiratory infection, unspecified Plan: Patient likely has sinusitis She recently tested negative for influenza and COVID Will start her empirically on Doxycycline 100 mg BID x 7 days as she is allergic to penicillins and Sulfas so her options for Abx are somewhat limited Plan Follow up as scheduled in March 2025 Orders: Orders US abdomen complete 01/29/25 K52.9 - Noninfective gastroenteritis and colitis, unspecified, R10.9 - Unspecified abdominal pain, R11.2 - Nausea with vomiting, unspecified Medications: New famotidine 20 mg PO BID 60 tabs 0RF 30 days doxycycline hyclate 100 mg PO BID 14 caps 0RF 7 days Refilled ondansetron 4 mg PO Q8H PRN 30 tabs 0RF nausea and vomiting
== END 2025-01-29 16:12 | disposition home or self-care (01) ==
LOC: HO.HMCH 15:19
PROVIDERS: PCP Internal Medicine; Visit Provider Internal Medicine
DX: R10.13 Epigastric pain (principal); K52.9 Noninfective gastroenteritis and colitis, unspecified; J06.9 Acute upper respiratory infection, unspecified

== ENCOUNTER → 2025-01-29 15:18 | Outpatient (BNVA) | payer BC, MEDICARE, SELFPAY | PROVIDERS: PCP Internal Medicine; Visit Provider Internal Medicine | DX: R10.13 Epigastric pain (principal); K52.9 Noninfective gastroenteritis and colitis, unspecified; J06.9 Acute upper respiratory infection, unspecified | CPT/HCPCS: 96127 ==

== ENCOUNTER 2025-02-02 09:16 | Outpatient (REF) | payer BC, MEDICARE, SELFPAY ==
--- NOTE | ~2025-02-02 | US_ITS ---
CLINICAL HISTORY: R10.9 - Unspecified abdominal pain --- Additional Notes or Special Instructions: post prandial diarrhea US abdomen complete Comparison: None provided Findings: The visualized pancreas is normal. The aorta and inferior vena cava are normal caliber. Atherosclerotic changes are noted in the aorta. The liver is normal in size and echotexture. There is no intrahepatic bile duct dilatation. The common duct is 2.7 mm in diameter. The gallbladder is normal. There is no sonographic Jacobson sign. The main portal vein is antegrade. The right kidney is 10.4 cm in length. Echogenic calculi are present within the right kidney. Trace right hydronephrosis. The left kidney is 10.2 cm in length. Punctate calcifications in the left kidney. No hydronephrosis. The spleen is 6.1 cm. No ascites. IMPRESSION: 1. Right renal calculi with mild right hydronephrosis. This document has been electronically signed by: Sudeep Holland MD, PHD on 02/03/2025 05:35:55
== END 2025-02-02 09:17 | disposition home or self-care (01) ==
LOC: HO.US 09:16
PROVIDERS: PCP Internal Medicine; Visit Provider Internal Medicine
DX: K52.9 Noninfective gastroenteritis and colitis, unspecified (principal)
CPT/HCPCS: 76700

== ENCOUNTER → 2025-02-02 09:18 | Outpatient (BNV) | payer BC, MEDICARE, SELFPAY | PROVIDERS: PCP Internal Medicine; Visit Provider General Practice | DX: N13.2 Hydronephrosis with renal and ureteral calculous obstruction (principal) | CPT/HCPCS: 76700 ==

== ENCOUNTER 2025-03-08 12:39 | Outpatient (AMB) | payer BC, MEDICARE, SELFPAY ==
[2025-03-08 13:05] VITALS: BP 122/80; PULSE 78; O2SAT 93; BMI 16.2
--- NOTE | 2025-03-08 13:05 | A.OFFPC_ITS ---
Vital Signs 03/08/25 13:05 Height 4 ft 11 in Weight 80 lb 2 oz BMI 16.2 BP 122/80 Blood Pressure Location Lt brachial Position Sitting Pulse 78 Pulse Source Pulse Oximeter Pulse Oximetry (%) 93 Oxygen Delivery Method Room Air Intake Visit Reasons: back hurts Hotel Valet Attendant Required: No Accompanied by: Self / Same As Patient Allergies aspirin (Aspirin) Allergy (Unknown, Verified 03/08/25 13:22) RASH diphenhydramine (From Benadryl) Allergy (Unknown, Verified 03/08/25 13:22) Unknown iron (Iron) Allergy (Unknown, Verified 03/08/25 13:22) VAGINAL INFECTION menthol (From Antihistamine) Allergy (Unknown, Verified 03/08/25 13:22) DIFF BREATHING penicillin V Allergy (Unknown, Verified 03/08/25 13:22) hives Penicillins Allergy (Unknown, Verified 03/08/25 13:22) Hives Sulfa (Sulfonamide Antibiotics) Allergy (Unknown, Verified 03/08/25 13:22) RASH ciprofloxacin Adverse Reaction (Severe, Verified 03/08/25 13:22) Headache Medication List - Last Reconciled 03/08/25 by Jason Bansal MD acetaminophen (Tylenol) 650 mg (2 x 325 mg) PO Q6H PRN albuterol sulfate 90 mcg/actuation 2 puffs inhalation Q4-6H PRN albuterol sulfate 2.5 mg (3 mL) continuous nebulization Q6H PRN 30 days betamethasone dipropionate 0.05% 1 appl topical BID PRN cholecalciferol (vitamin D3) 50 mcg PO DAILY citalopram 10 mg PO DAILY doxycycline hyclate 100 mg PO BID 7 days famotidine 20 mg PO BID 30 days meclizine 25 mg PO DAILY PRN mometasone 0.1% 1 appl topical DAILY PRN ondansetron 4 mg PO Q8H PRN revefenacin (Yupelri) 175 mcg (3 mL) inhalation DAILY ropinirole 0.5 mg PO BEDTIME 90 days simvastatin 10 mg PO DAILY 90 days tiotropium-olodaterol 2.5-2.5 mcg/actuation (Stiolto Respimat) 2 puffs inhalation DAILY 90 days trazodone 50 mg PO BEDTIME PRN 30 days Tobacco use date assessed: 03/08/25 Fall risk assessment: No Falls in past year Last assessed Fall Risk: 03/08/25 Dental Screening Dental Screen Date: 03/08/25 Did you have a dental visit in the last 12 months?: Yes Did you have a dental problem in the last 6 months where you did not have access to dental care?: No Was dental information given to patient?: Patient has dentist HPI back hurts HPI Details - The patient is a 74 year old female pr esenting with low back pain. - The pain started the day after Thanksg iving when she pulled a heavy item from a top shelf. - She describes the pain as starting yasmin r her tailbone, in the middle of her buttock, and radiating down the right leg. - The pain is exacerbated by coughing, p rolonged sitting, and prolonged standing. - The pain makes it difficult to walk an d sit correctly. - She reports trouble sleeping and must sleep on her right side due to vertigo when on her left side, but sleeping on the right side worsens the pain. - She has tried Tylenol for the pain wit h some benefit. - She notes that her restless leg syndro me has been worsening in the right leg since the pain started. - The patient has a history of advanced osteoporosis, and her last bone density scan was in 2021. - She reports known allergies to Cipro ( headache), sulfa drugs (rash), penicillins (hives), and aspirin (rash). - A recent abdominal ultrasound, ordered for stomach problems, was normal for the stomach, pancreas, liver, and gallbladder, but it did reveal a non- obstructing stone in her right kidney. [facility] Medical History Insomnia Hemoptysis Osteoporosis Smoker Major depression, recurrent Anxiety Lumbar degenerative disc disease Vitamin D deficiency Pure hypercholesterolemia COPD (chronic obstructive pulmonary disease) Restless legs syndrome (RLS) Vertigo Surgical History History of colonoscopy (~12/1999) History of breast surgery Family History Father Cuofi-Kqgai-Kxxqs syndrome Mother Hypertension Paternal Aunt Rzwtr-Lkjfj-Nsrgm syndrome Social History Housing: House Alcohol intake: never Patient Tobacco Use Status: Current everyday Tobacco user Tobacco use type: Cigarette Cigarette Packs Per Day: 0.5 Cigarettes Per Day: 8 e-Cigarette/Vaping Use: Never Used Second Hand Smoke Exposure: Yes service: No Current occupational status: retired Cognitive needs: No Hearing needs: No Vision needs: Yes Questionnaire PHQ-9 Over the last 2 weeks, how often have you been bothered by any of the following problems? 1. Little interest or pleasure in doing things: not at all 2. Feeling down, depressed, or hopeless: not at all 3. Trouble falling or staying asleep, or sleeping too much: not at all 4. Feeling tired or having little energy: not at all 5. Poor appetite or overeating: not at all 6. Feeling bad about yourself - or that you are a failure or have let yourself or your family down: not at all 7. Trouble concentrating on things, such as reading the newspaper or watching television: not at all 8. Moving or speaking so slowly that other people could have noticed. Or the opposite - being so fidgety or restless that you have been moving around a lot more than usual: not at all 9. Thoughts that you would be better off or of hurting yourself in some way: not at all Total score: 0 Depression Screening Interpretation: Negative Depression Screening Done: Yes 99159 - PHQ-9 Billing: Yes Source: Developed by Drs. Elio Valenzuela, Tammy Rosenberg, Jerzy Nicholson and colleagues, with an educational herminio from [employer]. Thrive Questionnaire Date Thrive assessed: 03/08/25 I am a: Patient What is your living situation today?: I have a steady place to live Within the past 12 months, did the food you bought not last and you didn't have the money to get more?: Never true Within the past 12 months, did you worry whether your food would run out before you got money to buy more?: Never true Do you have trouble paying for medicines?: Yes Do you have trouble getting transportation to medical appointments?: No Do you have trouble paying your heating and electricity bill?: No Do you have trouble taking care of your child, family member or friend?: No Do you have trouble with day-to-day activities such as bathing, preparing meals, shopping, managing finances, etc.?: No Are you currently unemployed and looking for a job?: No Are you interested in more education?: No Please select the resources that you would like help with: Paying for medicine Currently or been in a relationship where the following occur: I choose not to answer THRIVE Score: 0 AUDIT C Alcohol Use Questionnaire (AUDIT-C) 1. How often do you have a drink containing alcohol?: Monthly or less 2. How many drinks containing alcohol do you have on a typical day when you are drinking?: 1 or 2 3. How often do you have six or more drinks on one occasion?: Never Total Score: 1 Score Reviewed/Action Taken: Yes KAMI-7 AMB Questionnaire KAMI-7 Date KAMI - 7 assessed: 03/08/25 Feeling nervous, anxious, or on edge: 0 = Not at all Not being able to stop or control worryin = Not at all Worrying too much about different things: 0 = Not at all Trouble relaxin = Not at all Being so restless that it is hard to sit still: 0 = Not at all Becoming easily annoyed or irritable: 0 = Not at all Feeling afraid as if something awful might happen: 0 = Not at all Total KAMI-7 score (0-4 normal; 5-9 mild; 10-14 moderate; 15-21 severe): 0 Source: Developed by Drs. Elio Valenzuela, Tammy Rosenberg, Jerzy Nicholson and colleagues, with an educational herminio from [employer]. Review of Systems Const Denies chills, Reports difficulty sleeping, Reports fatigue and Denies fever(s) ENT Denies dysphagia, Reports dizziness (on and off, especially when she sleeps on her left side), Denies otalgia, Denies neck pain, Denies odynophagia and Denies sore throat Card Denies chest pain, Denies palpitations and Denies dyspnea Resp Denies chest congestion, Denies cough and Denies dyspnea GI Denies abdominal pain, Denies constipation, Denies dysphagia, Denies heartburn, Reports diarrhea (especially postprandial), Reports nausea, Denies odynophagia and Denies vomiting Denies difficulty voiding, Denies nocturia, Denies dysuria and Denies urinary urgency Musc Reports back pain (over the lower back - increased significantly lately), Denies arthralgias and Denies neck pain Skin/Breast Denies rash Neuro Reports dizziness (on and off, especially when she sleeps on her left side) Endo Reports fatigue and Denies palpitations Physical exam (Primary Care) Vital Signs: Last Vital Signs Pulse 78 03/08/25 13:05 BP 122/80 03/08/25 13:05 Pulse Ox 93 03/08/25 13:05 Oxygen Delivery Method Room Air 03/08/25 13:05 BMI result Body Mass Index 16.2 Tobacco/Smoking Status: Tobacco use Status Tobacco use date assessed 03/08/25 03/08/25 13:16 Patient Tobacco Use Status Current everyday Tobacco 03/08/25 13:06 Tobacco use type Cigarette 03/08/25 13:06 e-Cigarette/Vaping Use Never Used 03/08/25 13:06 PHQ-9: PHQ-9 Score PHQ-9: Total score 0 03/09/25 05:42 Depression Screening Interpretation: Negative Thrive Assessment: Date of Thrive Assessment Date Thrive assessed 03/08/25 03/08/25 13:16 Currently or been in a relationship where the following occur: I choose not to answer Const General: no acute distress and alert HENMT Throat: Yes posterior oropharynx normal and Yes tonsils normal (no TP congestion) Neck Neck: Yes supple and No lymphadenopathy Thyroid: Thyroid normal Resp Auscultation: no crackles, no rales, no wheezes and diminished lung sounds (slightly) bilateral Cardio Rate: regular rate Rhythm: regular rhythm Heart sounds: no murmurs GI Palpation (GI): Soft to palpation Auscultation: normal bowel sounds General: Yes no CVA tenderness Back/Spine/Pelvis Back: no CVA tenderness Thoracic/Lumbar Spine: lumbar spinal tenderness and straight leg raise positive right Skin Rashes: no rashes Extrem General: Yes no clubbing, cyanosis or edema Right upper extremity: shoulder/upper arm Details: tenderness (mild) Location: of the A-C joint Coding Level of Care Code Est Pt Level 4 (87519) Diagnoses Midline low back pain, unspecified chronicity, unspecified whether sciatica present M54.50 Chronicity: unspecified Back pain laterality: midline Sciatica presence: unspecified whether sciatica present Additional Codes PHQ-9 - 63618 - PHQ-9 Billing: Yes ([id number]) Assessment & Plan Assessment & Plan (1) Low back pain: Code(s): M54.50 - Low back pain, unspecified Category: Medical Qualifiers: Chronicity: unspecified Back pain laterality: midline Sciatica presence: unspecified whether sciatica present Qualified Code(s): M54.50 - Low back pain, unspecified Plan: Patient reports significantly increased low back pain, reporting that the pain started the day after Thanksgiving when she pulled a heavy item from a top shelf She describes the pain as starting near her tailbone, in the middle of her buttock, and radiating down the right leg. Notes that the pain is exacerbated by coughing, prolonged sitting, and prolonged standing and makes it difficult to walk and sit correctly Will send patient for updated x-rays of the lumbar spine and SI joints NIHARIKA Will also send her for repeat BMD for follow up of her osteoporosis Will start patient for now on Tramadol 50 mg TID PRN for pain and reinforced activity and weight-lifting restrictions to minimize aggravating her low back pain Plan Follow up as scheduled next month Orders: Orders XR lumbar spine 2-3V 03/08/25 M54.50 - Low back pain, unspecified XR sacroiliac joint min 3V 03/08/25 M54.50 - Low back pain, unspecified XR DEXA axial skeleton 03/08/25 M81.0 - Age-related osteoporosis without current pathological fracture, Z78.0 - Asymptomatic menopausal state Medications: New tramadol 50 mg PO TID PRN 30 tabs 1RF pain
== END 2025-03-08 13:42 | disposition home or self-care (01) ==
LOC: HO.HMCH 12:40
PROVIDERS: PCP Internal Medicine; Visit Provider Internal Medicine
DX: M54.50 Low back pain, unspecified (principal)

== ENCOUNTER 2025-03-08 12:39 | Outpatient (REF) | payer BC, MEDICARE, SELFPAY ==
--- NOTE | ~2025-03-08 | XR_ITS ---
EXAMINATION: X-ray lumbar spine X-ray SI joints CLINICAL INFORMATION: Low back pain COMPARISON: None TECHNIQUE: Lumbar spine 3 views. SI joints 3 views FINDINGS: Lumbar spine: Bone mineralization is decreased. Vertebral body alignment is grossly maintained, evaluation limited by rotated positioning. Vertebral body heights are maintained. No evidence of acute fracture. No significant disc space narrowing. Facet degeneration in the lower lumbar spine. There is a 2 x 1.6 cm calcific focus projected over the right paraspinal region, indeterminate. This is not evident on the prior CT scan of 02/16/2017. SI joints: No evidence of significant SI joint arthropathy. No erosions. No acute fracture seen. No abnormal soft tissue calcification. XR/XR lumbar spine 2-3V IMPRESSION: * No acute findings * 2 x 1.6 cm calcification projected over the right paraspinal region, indeterminate. This of uncertain etiology. Consider further evaluation with CT scan as clinically indicated. * Mild lower lumbar facet degeneration. * No significant SI joint arthropathy. Electronically signed by: Kendall Pisano MD 03/10/2025 07:16 AM DANIELA
--- NOTE | ~2025-03-08 | XR_ITS ---
EXAMINATION: X-ray lumbar spine X-ray SI joints CLINICAL INFORMATION: Low back pain COMPARISON: None TECHNIQUE: Lumbar spine 3 views. SI joints 3 views FINDINGS: Lumbar spine: Bone mineralization is decreased. Vertebral body alignment is grossly maintained, evaluation limited by rotated positioning. Vertebral body heights are maintained. No evidence of acute fracture. No significant disc space narrowing. Facet degeneration in the lower lumbar spine. There is a 2 x 1.6 cm calcific focus projected over the right paraspinal region, indeterminate. This is not evident on the prior CT scan of 02/16/2017. SI joints: No evidence of significant SI joint arthropathy. No erosions. No acute fracture seen. No abnormal soft tissue calcification. XR/XR sacroiliac joint min 3V IMPRESSION: * No acute findings * 2 x 1.6 cm calcification projected over the right paraspinal region, indeterminate. This of uncertain etiology. Consider further evaluation with CT scan as clinically indicated. * Mild lower lumbar facet degeneration. * No significant SI joint arthropathy. Electronically signed by: Kendall Pisano MD 03/10/2025 07:16 AM DANIELA ANN
== END 2025-03-08 12:40 | disposition home or self-care (01) ==
LOC: HO.XRAY 12:39
PROVIDERS: PCP Internal Medicine; Visit Provider Internal Medicine
DX: M54.50 Low back pain, unspecified (principal)
CPT/HCPCS: 72100; 72202; 96127

== ENCOUNTER → 2025-03-08 13:57 | Outpatient (BNV) | payer BC, MEDICARE, SELFPAY | PROVIDERS: PCP Internal Medicine; Visit Provider Radiology Diagnostic Ultrasound | DX: M47.816 Spondylosis without myelopathy or radiculopathy, lumbar region (principal) | CPT/HCPCS: 72100; 72202 ==